=== PATIENT | female | born 1985 | race Hispanic/Latino ===

== ENCOUNTER 2017-07-09 12:48 | Emergency (ER) | payer OTHER ==
[2017-07-09 12:49] VITALS: BMI 31.1
[2017-07-09 13:03] VITALS: BP 124/82; PULSE 72; RESP 16; TEMP 98.1; O2SAT 98
--- NOTE | 2017-07-09 13:47 | C.PDOC ---
History Of Present Illness 32 y/o female presents to ED requesting repeat blood culture. Patient admits to having blood culture sent at another institution and told she had positive staph in blood. Patient reports she is on antibiotics already and feels better, currently denies fever, chills, nausea, vomiting or any other complaints at this time. Time Seen by Provider: 07/09/17 13:30 Chief Complaint (Nursing): Abnormal Labs History Per: Patient History/Exam Limitations: no limitations Onset/Duration Of Symptoms: Days Current Symptoms Are (Timing): Still Present Past Medical History Reviewed: Historical Data, Nursing Documentation, Vital Signs Vital Signs: Last Vital Signs Temp 98.1 F 07/09/17 13:00 Pulse 72 07/09/17 13:00 Resp 16 07/09/17 13:00 BP 124/82 07/09/17 13:00 Pulse Ox 98 07/09/17 15:49 - Medical History PMH: Anemia (iron transfusions, unknown cause), Arthritis (RA), Asthma, Fibromyalgia, Rheumatoid Arthritis Surgical History: No Surg Hx - [facility] Procedures NEBULIZER THERAPY (06/22/02) Family History: States: No Known Family Hx - Social History Hx Tobacco Use: No Hx Alcohol Use: No Hx Substance Use: No - Immunization History Hx Tetanus Toxoid Vaccination: No Hx Influenza Vaccination: No Hx Pneumococcal Vaccination: No Review Of Systems Except As Marked, All Systems Reviewed And Found Negative. Constitutional: Negative for: Fever, Chills Cardiovascular: Negative for: Chest Pain Gastrointestinal: Negative for: Nausea, Vomiting Physical Exam - Physical Exam Appears: Non-toxic, No Acute Distress Skin: Warm, Dry, No Rash Head: Atraumatic, Normacephalic Eye(s): bilateral: Normal Inspection Oral Mucosa: Moist Neck: Normal ROM, Supple Cardiovascular: Rhythm Regular Respiratory: Normal Breath Sounds, No Rales, No Rhonchi, No Wheezing Gastrointestinal/Abdominal: Soft, No Tenderness, No Guarding, No Rebound Extremity: Normal ROM, Capillary Refill (<2 seconds) Neurological/Psych: Oriented x3, Normal Speech, Normal Cognition ED Course And Treatment O2 Sat by Pulse Oximetry: 98 (RA) Pulse Ox Interpretation: Normal Against Medical Advice - AMA Patient Left Against Medical Advice: The patient declines admission to the hospital and wishes to leave the Emergency Department. This action is against my medical advice. This decision was made with informed refusal. The patient was told that admission to the hospital is necessary. Explanation of the reasons why were discussed. The risks of leaving were explained to the patient and include, but are not limited to, worsening of known or currently unknown conditions, permanent disability and from undiagnosed or untreated conditions. The patient has the capacity to make this informed decision and understands my explanation of the current medical problem and risks of leaving. The patient voluntarily accepts these risks and signed an AMA form documenting our conversation. The patient was given the opportunity to ask questions and reconsider. The patient was encouraged to return to the Emergency Department at any time for further care. Medical Decision Making Medical Decision Making: Patient advised to wait until I reach [facility] for possible bacteremia and to discuss positive culture. Patient does not wish to wait or stay in ED, Signed out AMA. i advised the culture could be contaminent vs true bacteremia. pt states she does not wish to wait in er to discuss with [place], does not wish to be admitted even if true bacteremia. signs ama Disposition - Disposition Disposition: AGAINST MEDICAL ADVICE Disposition Time: 02:00 Condition: UNKNOWN Additional Instructions: return to any er with worsening symptoms or concerns. Instructions: Sepsis in Adults, Leaving Against Medical Advice Forms: [facility] ([place]) - Clinical Impression Clinical Impression: Positive blood culture - Scribe Statement The provider has reviewed the documentation as recorded by the Radhaibsherwin Godinez All medical record entries made by the Radhaibsherwin were at my direction and personally dictated by me. I have reviewed the chart and agree that the record accurately reflects my personal performance of the history, physical exam, medical decision making, and the department course for this patient. I have also personally directed, reviewed, and agree with the discharge instructions and disposition.
== END 2017-07-09 13:44 | disposition left against medical advice (07) ==
LOC: C.ER 12:48
DX: R78.81 Bacteremia (principal)

== ENCOUNTER 2017-12-02 16:04 | Inpatient (IN) | payer OTHER ==
[2017-12-02 16:05] VITALS: BMI 31.1
[2017-12-02] MEDS ORDERED: Albuterol-Ipratrop 3 mg / 0.5 (3 ml) UD INH STA ×2 (16:38→18:55)
[2017-12-02] MEDS ORDERED: Albuterol-Ipratrop 3 mg / 0.5 (3 ml) UD ONE (16:44)
[2017-12-02] MEDS ORDERED: MethylPREDNISolone 40 mg Vial ONE (16:44)
[2017-12-02 16:45] LABS: MEAN PLATELET VOLUME 6.3 fL (7.2-11.7); RED CELL DISTRIBUTION WIDTH 31.1 % (11.5-14.5)
[2017-12-02 16:49] LABS: MEAN CORPUSCULAR HEMOGLOBIN 23.7 pg (27.0-31.0); MEAN CORPUSCULAR HGB CONC 30.4 g/dL (33.0-37.0); RBC 3.82 Mil/uL (3.80-5.20)
--- NOTE | 2017-12-02 16:49 | C.PDOC ---
History Of Present Illness 32 year old female with a history of subclavian DVT, anemia, fibromyalgia, rheumatoid arthritis and asthma presents to the ED c/o "all of my organs hurt". States total body pain, worse in her chest and back. (+) sob - "I always am w heezing". Pt was diagnosed with subclavian DVT last month and treated with eliquis. PT notes she is compliant with her prescribed medications. Admits to seeing a pain management doctor monthly who prescribes dilaudid BID. Denies fever, trauma, syncope, leg swelling, vomiting, and any other associated symptoms. Time Seen by Provider: 12/02/17 16:18 Chief Complaint (Nursing): Chest Pain History Per: Patient History/Exam Limitations: no limitations Onset/Duration Of Symptoms: Hrs Past Medical History Reviewed: Historical Data, Nursing Documentation, Vital Signs Vital Signs: Last Vital Signs Temp 99 F 12/02/17 16:10 Pulse 105 H 12/02/17 16:10 Resp 18 12/02/17 16:10 BP 145/89 12/02/17 16:10 Pulse Ox 93 L 12/02/17 16:10 - Medical History PMH: Anemia (iron transfusions, unknown cause), Arthritis (RA), Asthma, Fibromyalgia, Rheumatoid Arthritis Denies: HIV, Chronic Kidney Disease - [facility] Procedures NEBULIZER THERAPY (06/22/02) TRANSFUSE NONAUT RED BLOOD CELLS IN PERIPH VEIN, PERC (10/25/17) Family History: States: Unknown Family Hx - Social History Hx Tobacco Use: No Hx Alcohol Use: Yes (! bot of wine/week - denies) Hx Substance Use: No - Immunization History Hx Tetanus Toxoid Vaccination: No Hx Influenza Vaccination: No Hx Pneumococcal Vaccination: No Review Of Systems Except As Marked, All Systems Reviewed And Found Negative. (body pain.) Constitutional: Negative for: Fever Cardiovascular: Positive for: Chest Pain Respiratory: Negative for: Shortness of Breath Gastrointestinal: Positive for: Nausea. Negative for: Vomiting Physical Exam - Physical Exam Appears: Non-toxic, Other (crying, speaking in full sentences. ) Skin: Normal Color, Warm, Dry Head: Atraumatic, Normacephalic Eye(s): bilateral: Normal Inspection, EOMI Nose: Normal Oral Mucosa: Moist Throat: Normal, No Erythema, No Exudate, No Drooling Neck: Normal ROM, Supple Chest: Symmetrical, No Deformity Cardiovascular: Rhythm Regular Respiratory: No Accessory Muscle Use, No Rales, No Rhonchi, Wheezing Gastrointestinal/Abdominal: Normal Exam, Soft, No Tenderness Extremity: Normal ROM (x4) Neurological/Psych: Oriented x3, Normal Speech ED Course And Treatment - Laboratory Results Result Diagrams: 12/10/17 08:08 12/10/17 08:08 ECG: Interpreted By Me (Dr Walden), Viewed By Me ECG Rhythm: Sinus Rhythm Rate From EC O2 Sat by Pulse Oximetry: 93 (RA) Pulse Ox Interpretation: Abnormal - CT Scan/US CT Chest Other Rad Studies (CT/US): Read By Radiologist CT/US Interpretation: Findings: Visualized portions of the inferior thyroid gland appear unremarkable. The mediastinal and hilar vascular structures appear within normal limits. The heart appears within normal limits of size. No atherosclerotic calcification or mural plaque identified. No large central or segmental pulmonary embolus evident. Increasing nodular interstitial infiltrate involving bilateral mid to lower lung zones and to a lesser extent involvement of the upper lobes. No pleural effusion. No pneumothorax. Large hiatal hernia with evidence of gastroesophageal reflux. Limited visualized portions of the upper abdomen appear grossly unremarkable. No acute osseous abnormality is detected. Impression: No large central or segmental pulmonary embolus identified. Extensive nodular interstitial opacities, increased since prior examination. Appearance remains concerning for opportunistic infection. Sarcoid is also in the differential. Recommend clinical correlation and pulmonary consultation as indicated. Hiatal hernia and large gastroesophageal reflux. Question dysmotility/esophageal abnormality. Progress Note: Blood sent. CT Angio Chest. EKG. Urine HCG. Urinalysis. Given Al buterol/Ipratropium and Solu-Medrol. Nebulizer treatment given. On re- evaluation, minimally improvement of wheezing. Pt continues to have pain "everywhere". Anemia noted to be improved from previous labs as is the WBC. Case discussed with Dr Walden, who evaluated work up and agreed upon plan and admisison. Dr Orona called, no call back. Case discussed with Dr Moran, agreed upon plan and admission. Disposition - Disposition Disposition: HOSPITALIZED Disposition Time: 19:16 Condition: STABLE - Clinical Impression Clinical Impression: Chest pain, Asthma exacerbation, Fibromyalgia, Rheumatoid arthritis flare, Lung nodules - PA / METEOROLOGY PROFESSOR / Resident Statement MD/DO has reviewed & agrees with the documentation as recorded. - Scribe Statement The provider has reviewed the documentation as recorded by the Scribe (Suni Sultana) All medical record entries made by the Scribe were at my direction and personally dictated by me. I have reviewed the chart and agree that the record accurately reflects my personal performance of the history, physical exam, medical decision making, and the department course for this patient. I have also personally directed, reviewed, and agree with the discharge instructions and disposition.
[2017-12-02 16:52] LABS: HEMOGLOBIN 9.1 g/dL (11.0-16.0); WHITE BLOOD COUNT 11.5 K/uL (4.8-10.8)
[2017-12-02 16:53] LABS: PROTHROMBIN TIME 11.2 SECONDS (9.7-12.2)
[2017-12-02] MEDS ORDERED: Iodixanol 320 MG/ML 100 ML BOTTLE IV ONE (16:55)
[2017-12-02 16:58] LABS: ALB/GLOB RATIO 1.2 (1.0-2.1); ALBUMIN 3.3 g/dL (3.5-5.0); BLOOD UREA NITROGEN 6 mg/dL (7-17); GFR NON-AFRICAN AMERICAN > 60
[2017-12-02 16:59] LABS: ALT/SGPT 21 U/L (9-52); AST/SGOT 24 U/L (14-36)
[2017-12-02 17:06] LABS: EOS # 0.2 K/uL (0.0-0.7); LYMPH # 2.3 K/uL (1.0-4.3); MONO # 0.4 K/uL (0.0-0.8); NEUT # 8.6 K/uL (1.8-7.0)
--- NOTE | 2017-12-02 18:44 | CT ---
Date of service: 2017-12-02 17:58:17 CTA chest PE protocol Indication: SOB Technique: Contiguous axial images were obtained through the chest with intravenous contrast enhancement. Sagittal and coronal reconstructions were generated and reviewed. This CT exam was performed using 1 or more of the following dose reduction techniques: Automated exposure control, adjustment of the MAA and/or kV according to patient size, and/or use of iterative reconstruction technique. IV contrast: 100 mL Visipaque 320 Radiation dose (DLP): 614.35 MGy-cm. Comparison: CT chest without IV contrast performed 05/03/15 Findings: Visualized portions of the inferior thyroid gland appear unremarkable. The mediastinal and hilar vascular structures appear within normal limits. The heart appears within normal limits of size. No atherosclerotic calcification or mural plaque identified. No large central or segmental pulmonary embolus evident. Increasing nodular interstitial infiltrate involving bilateral mid to lower lung zones and to a lesser extent involvement of the upper lobes. No pleural effusion. No pneumothorax. Large hiatal hernia with evidence of gastroesophageal reflux. Limited visualized portions of the upper abdomen appear grossly unremarkable. No acute osseous abnormality is detected. Impression: No large central or segmental pulmonary embolus identified. Extensive nodular interstitial opacities, increased since prior examination. Appearance remains concerning for opportunistic infection. Sarcoid is also in the differential. Recommend clinical correlation and pulmonary consultation as indicated. Hiatal hernia and large gastroesophageal reflux. Question dysmotility/esophageal abnormality.
[2017-12-02 19:50] LABS: SQUAMOUS EPITHIAL 19 /hpf (0-5); URINE BILIRUBIN NEGATIVE (NEGATIVE); URINE BLOOD NEGATIVE (NEGATIVE); URINE CLARITY Hazy (Clear); URINE COLOR Yellow (YELLOW); URINE GLUCOSE (UA) NORMAL (Normal); URINE LEUKOCYTE ESTERASE 1+ Leu/uL (Negative); URINE PROTEIN NEGATIVE (NEGATIVE); URINE UROBILINOGEN NORMAL mg/dL (0.2-1.0)
[2017-12-02 19:51] LABS: HCG,QUALITATIVE URINE NEGATIVE (NEGATIVE)
[2017-12-02 20:04] LABS: BARBITURATES, UR NEGATIVE (NEGATIVE); BENZODIAZEPINES, UR NEGATIVE (NEGATIVE); PHENCYCLIDINE, UR NEGATIVE (NEGATIVE)
[2017-12-02 20:20] LABS: OPIATES, UR POSITIVE (NEGATIVE)
[2017-12-02] MEDS: Morphine 4 MG/ML VIAL IVP PRN (22:47)
[2017-12-02] MEDS: MethylPREDNISolone 40 mg Vial IV SCH (22:51)
[2017-12-02] MEDS: Moxifloxacin IV 400mg/250ml NS 400 MG/250 ML BAG IVPB SCH (23:33)
[2017-12-03] MEDS: DiphenhydrAMINE 50 mg/ml Inj IVP PRN ×3 (00:58→18:27)
[2017-12-03] MEDS: Albuterol-Ipratrop 3 mg / 0.5 (3 ml) UD INH SCH ×4 (01:15→19:58)
[2017-12-03] MEDS: Morphine 4 MG/ML VIAL IVP PRN (05:06)
[2017-12-03] MEDS: MethylPREDNISolone 40 mg Vial IV SCH ×3 (05:15→22:42)
[2017-12-03] MEDS: Pantoprazole 40 mg EC Tab PO SCH (09:50)
--- NOTE | 2017-12-03 09:55 | RAD ---
Date of service: 12/03/2017 HISTORY: interstitial lung opacities COMPARISON: 05/03/2015 chest x-ray CT angio 12/02/2017 TECHNIQUE: Chest PA and lateral FINDINGS: LUNGS: The previously referenced bilateral interstitial nodular fold trait of pattern is less pronounced on this chest x-ray than prior chest x-ray. No interval consolidation. PLEURA: Trace left pleural effusion costophrenic angle and/or chronic pleural thickening here-no change since 2016. No interval increasing pleural effusion or pneumothorax seen. CARDIOVASCULAR: No aortic atherosclerotic calcification present Normal heart size Lobulated soft tissue densities over central thoraco abdominal level compatible with large hiatal hernia-more conspicuous on this exam OSSEOUS STRUCTURES: No significant abnormalities. VISUALIZED UPPER ABDOMEN: Normal. OTHER FINDINGS: None. IMPRESSION: The prior suggested bilateral interstitial nodular infiltrative process albeit still present is less conspicuous on this exam than priors. No interval infiltrate. Chronic left costophrenic angle blunting-similar small left pleural effusion and/or chronic left pleural thickening here. Large hiatal hernia
[2017-12-03] MEDS ORDERED: Enoxaparin 40 mg Syringe SC SCH (10:00)
[2017-12-03] MEDS ORDERED: TIZANIDINE 4 MG PO SCH (10:00)
[2017-12-03] MEDS: Lactobacillus Acidophilus 500 MU Cap PO SCH ×3 (11:00→18:22)
[2017-12-03] MEDS ORDERED: HYDROmorphone 1 mg/ml ISec IVP PRN (11:03)
[2017-12-03 13:33] LABS: ANTI SREPTOLYSIN O NEGATIVE (NEGATIVE)
--- NOTE | 2017-12-03 14:56 | NM ---
Date of service: 12/03/2017 COMPARISON: 12/03/2017 single-view chest. 12/02/2017 CT pulmonary angiogram TECHNIQUE: 6.0 mCi technetium 99-m Xe-133 Gas. 3.5 mCI technetium 99-m MAA administered intravenously. FINDINGS: VENTILATION COMPONENT: Normal. PERFUSION COMPONENT: Solitary subsegmental peripheral defect superior segment right lower lobe IMPRESSION: Low probability ventilation perfusion scan for pulmonary embolism.
--- NOTE | 2017-12-03 16:15 | CP.PCM.CON ---
History of Present Illness - History of Present Illness History of Present Illness: Patient is a 32 year old female with a PMHx of Fibromyalgia, Subclavian DVT, Asthma, Rheumatoid Arthritis, Pneumonia who presented with intractable pain throughout her body which she described as "pain in my organs", primarily in the kidneys. Pain started around 7 am, patient took Dilaudid with no symptom improvement. Admits to wheezing and cough, but states cough is persistent for her. Denies SOB. Chest CT 12/02 - Increasing nodular interstitial infiltrate involving bilateral mid to lower lung zones and to a lesser extent involvement of the upper lobes. Appearance remains concerning for opportunistic infection. No pleural effusion. No pneumothorax. No large central or segmental pulmonary embolus evident. Chest Xray 12/03 - Trace left pleural effusion costophrenic angle and/or chronic pleural thickening here, no change since 2016. No interval increasing pleural effusion or pneumothorax seen. PMHx: Fibromyalgia, Subclavian DVT, Asthma, Rheumatoid Arthritis, Pneumonia Surgical Hx: Left shoulder surgery, Deviated septum, Shoulder arthroscopy Meds: Dilaudid, Singulair, Folic acid, Prednisone, Omeprazole, Ceflunonide, Albuterol, Sulfaslacin, Hydroxychloroquine, Gabapentin, Hydromorphone, Zyprexa, Eliquis, Tizanidine Allergies: Azithromycin, Rocephin, Vancomycin, Humira (all hives) Fam Hx: Mother - arthritis; Father - asthma, heart disease, lung disease, DM type II. Social Hx: Not currently working, states she is disabled. Lives with fiance in 3rd floor of "old apartment building". Has 1 dog. Admits to heavy alcohol use in the past, reduced to 3 drinks per week due to health problems. Denies tobacco and illicit drug use. Review of Systems - Review of Systems All systems: reviewed and no additional remarkable complaints except (SHORTNESS OF BREATH) Past Patient History - Infectious Disease Hx of Infectious Diseases: None - Past Medical History & Family History Past Medical History?: Yes - Past Social History Smoking Status: Never Smoked - CARDIAC Hx Cardiac Disorders: No - PULMONARY Hx Asthma: Yes - NEUROLOGICAL Hx Neurological Disorder: No - HEENT Hx HEENT Problems: No - RENAL Hx Chronic Kidney Disease: No - ENDOCRINE/METABOLIC Hx Endocrine Disorders: No - HEMATOLOGICAL/ONCOLOGICAL Hx Anemia: Yes (iron transfusions, unknown cause) Hx Human Immunodeficiency Virus (HIV): No - INTEGUMENTARY Hx Dermatological Problems: No - MUSCULOSKELETAL/RHEUMATOLOGICAL Hx Arthritis: Yes (RA) Hx Rheumatoid Arthritis: Yes - GASTROINTESTINAL Hx Gastrointestinal Disorders: No - GENITOURINARY/GYNECOLOGICAL Hx Genitourinary Disorders: No - PSYCHIATRIC Hx Substance Use: No - SURGICAL HISTORY Hx Surgeries: No Other/Comment: Deviated septum - ANESTHESIA Hx Anesthesia: Yes Hx Anesthesia Reactions: No Meds Allergies/Adverse Reactions: Allergies Allergy/AdvReac Type Severity Reaction Status Date / Time adalimumab [From Humira] Allergy Mild RASH Verified 11/11/17 10:53 azithromycin [From Zithromax] Allergy Mild RASH Verified 11/11/17 10:53 ceftriaxone [From Rocephin] Allergy Mild RASH Verified 11/11/17 10:53 vancomycin Allergy Mild RASH Verified 11/11/17 10:53 pablo Allergy Intermediate ITCHING Uncoded 11/11/17 10:53 rocephin Allergy Intermediate ITCHING Uncoded 11/11/17 10:53 - Medications Medications: Current Medications Albuterol/Ipratropium (Duoneb 3 Mg/0.5 Mg (3 Ml) Ud) 3 ml INH RQ6 [facility] Last Admin: 12/03/17 13:50 Dose: 3 ml Apixaban (Eliquis) 5 mg PO BID [facility] Last Admin: 12/03/17 11:00 Dose: 5 mg Diphenhydramine HCl (Benadryl) 25 mg IVP QID PRN PRN Reason: Itching / Pruritus Folic Acid (Folic Acid) 1 mg PO DAILY [facility] Last Admin: 12/03/17 09:49 Dose: 1 mg Gabapentin (Neurontin) 300 mg PO TID [facility] Last Admin: 12/03/17 14:27 Dose: 300 mg Home Med (Leflunomide [Leflunomide]) 20 mg PO DAILY [facility] Home Med (Mometasone/Formoterol [Dulera 200 Mcg/5 Mcg Inhaler]) 13 gm IH BID [facility] Home Med (Pnv No.95/Ferrous Fum/Folic Ac [ Formula Tablet]) 1 tab PO DAILY [facility] Home Med (Tizanidine [Zanaflex]) 4 mg PO BID [facility] Hydroxychloroquine Sulfate (Plaquenil) 200 mg PO BID [facility]; Protocol Last Admin: 12/03/17 09:49 Dose: 200 mg Moxifloxacin HCl (Avelox Iv 400mg/250ml Ns) 400 mg in 250 mls @ 167 mls/hr IVPB Q24H [facility]; Protocol Last Admin: 12/02/17 23:33 Dose: 167 mls/hr Lactobacillus Acidophilus (Bacid Acidophilus) 1 cap PO BID [facility] Last Admin: 12/03/17 11:09 Dose: 1 cap Methylprednisolone (Solu-Medrol) 40 mg IV Q12H [facility] Montelukast Sodium (Singulair) 10 mg PO DAILY [facility] Last Admin: 12/03/17 09:50 Dose: 10 mg Morphine Sulfate (Morphine) 4 mg IVP Q4 PRN PRN Reason: Pain, severe (8-10) Olanzapine (Zyprexa) 5 mg PO DAILY [facility] Last Admin: 12/03/17 09:50 Dose: 5 mg Pantoprazole Sodium (Protonix Ec Tab) 40 mg PO DAILY [facility] Last Admin: 12/03/17 09:50 Dose: 40 mg Sulfasalazine (Azulfidine) 1,500 mg PO BID [facility]; Protocol Last Admin: 12/03/17 09:49 Dose: 1,500 mg Physical Exam - Head Exam Head Exam: ATRAUMATIC, NORMOCEPHALIC - ENT Exam ENT Exam: Mucous Membranes Moist - Neck Exam Neck exam: Positive for: Normal Inspection - Respiratory Exam Respiratory Exam: Rhonchi, Wheezes - Cardiovascular Exam Cardiovascular Exam: REGULAR RHYTHM - GI/Abdominal Exam GI & Abdominal Exam: Normal Bowel Sounds, Soft - Extremities Exam Extremities exam: Positive for: normal inspection - Neurological Exam Neurological exam: Alert, Oriented x3 Results - Vital Signs Recent Vital Signs: Last Vital Signs Temp 98.7 F 12/03/17 07:00 Pulse 90 12/03/17 07:00 Resp 20 12/03/17 07:00 BP 115/76 12/03/17 07:00 Pulse Ox 95 12/03/17 13:00 - Labs Result Diagrams: 12/02/17 16:42 12/02/17 16:42 Labs: Laboratory Results - last 24 hr 12/02/17 12/02/17 12/02/17 16:42 16:42 16:42 WBC 11.5 H D RBC 3.82 Hgb 9.1 L D Hct 29.8 L MCV 78.0 L D MCH 23.7 L MCHC 30.4 L RDW 31.1 H Plt Count 563 H D MPV 6.3 L Neut % (Auto) 75.0 Lymph % (Auto) 20.0 [place] % (Auto) 3.0 Eos % (Auto) 2.0 Baso % (Auto) 0.0 Neut # (Auto) 8.6 H Lymph # (Auto) 2.3 [place] # (Auto) 0.4 Eos # (Auto) 0.2 Baso # (Auto) 0.0 ESR PT 11.2 INR 1.0 APTT 30 Sodium 138 Potassium 3.4 L Chloride 102 Carbon Dioxide 25 Anion Gap 14 BUN 6 L Creatinine 0.4 L Est GFR ( Amer) > 60 Est GFR (Non-Af Amer) > 60 Random Glucose 89 Calcium 8.0 L Total Bilirubin 0.4 AST 24 ALT 21 Alkaline Phosphatase 50 Total Protein 6.0 L Albumin 3.3 L Globulin 2.7 Albumin/Globulin Ratio 1.2 Beta HCG, Quant Urine Color Urine Clarity Urine pH Ur Specific [place] Urine Protein Urine Glucose (UA) Urine Ketones Urine Blood Urine Nitrate Urine Bilirubin Urine Urobilinogen Ur Leukocyte Esterase Urine WBC (Auto) Urine RBC (Auto) Ur Squamous Epith Cells Urine HCG, Qual Urine Opiates Screen Urine Methadone Screen Ur Barbiturates Screen Ur Phencyclidine Scrn Ur Amphetamines Screen U Benzodiazepines Scrn U Oth Cocaine Metabols U Cannabinoids Screen Anti-Staphylolysin O 12/02/17 12/02/17 12/02/17 17:03 19:33 19:33 WBC RBC Hgb Hct MCV MCH MCHC RDW Plt Count MPV Neut % (Auto) Lymph % (Auto) [place] % (Auto) Eos % (Auto) Baso % (Auto) Neut # (Auto) Lymph # (Auto) [place] # (Auto) Eos # (Auto) Baso # (Auto) ESR PT INR APTT Sodium Potassium Chloride Carbon Dioxide Anion Gap BUN Creatinine Est GFR ( Amer) Est GFR (Non-Af Amer) Random Glucose Calcium Total Bilirubin AST ALT Alkaline Phosphatase Total Protein Albumin Globulin Albumin/Globulin Ratio Beta HCG, Quant < 2.39 Urine Color Yellow Urine Clarity Hazy Urine pH 6.0 Ur Specific [place] 1.048 H Urine Protein Negative Urine Glucose (UA) Normal Urine Ketones Negative Urine Blood Negative Urine Nitrate Negative Urine Bilirubin Negative Urine Urobilinogen Normal Ur Leukocyte Esterase 1+ H Urine WBC (Auto) 6 H Urine RBC (Auto) 1 Ur Squamous Epith Cells 19 H Urine HCG, Qual Negative Urine Opiates Screen Positive H Urine Methadone Screen Negative Ur Barbiturates Screen Negative Ur Phencyclidine Scrn Negative Ur Amphetamines Screen Negative U Benzodiazepines Scrn Negative U Oth Cocaine Metabols Negative U Cannabinoids Screen Negative Anti-Staphylolysin O 12/03/17 12/03/17 12/03/17 11:08 11:08 11:08 WBC RBC Hgb Hct MCV MCH MCHC RDW Plt Count MPV Neut % (Auto) Lymph % (Auto) [place] % (Auto) Eos % (Auto) Baso % (Auto) Neut # (Auto) Lymph # (Auto) [place] # (Auto) Eos # (Auto) Baso # (Auto) ESR 32 H PT INR APTT Sodium Potassium Chloride Carbon Dioxide Anion Gap BUN Creatinine Est GFR ( Amer) Est GFR (Non-Af Amer) Random Glucose Calcium Total Bilirubin AST ALT 21 Alkaline Phosphatase Total Protein Albumin Globulin Albumin/Globulin Ratio Beta HCG, Quant Urine Color Urine Clarity Urine pH Ur Specific [place] Urine Protein Urine Glucose (UA) Urine Ketones Urine Blood Urine Nitrate Urine Bilirubin Urine Urobilinogen Ur Leukocyte Esterase Urine WBC (Auto) Urine RBC (Auto) Ur Squamous Epith Cells Urine HCG, Qual Urine Opiates Screen Urine Methadone Screen Ur Barbiturates Screen Ur Phencyclidine Scrn Ur Amphetamines Screen U Benzodiazepines Scrn U Oth Cocaine Metabols U Cannabinoids Screen Anti-Staphylolysin O Negative Assessment & Plan (1) Asthma exacerbation Status: Acute Comment: continue steroids, nebulizer treatment. Patient is on steroids for many years, rule out opportunistic infection. Serum LDH. Bactrim. IgE level. Pulmonary function test. Autoimmune workup (2) SOB (shortness of breath) Status: Acute (3) Arthritis, rheumatoid Status: Acute (4) DVT (deep venous thrombosis) Status: Acute (5) Anemia Status: Chronic
--- NOTE | 2017-12-03 17:33 | US ---
Date of service: 12/03/2017 PROCEDURE: Ultrasound of the Kidneys HISTORY: back pain COMPARISON: CT abdomen pelvis with contrast performed 06/16/14 TECHNIQUE: Sonogram of the kidneys. FINDINGS: RIGHT KIDNEY: Measures: 11.6 x 3.9 x 4.9 cm. No obstructing calculus, hydronephrosis, or renal cyst identified. LEFT KIDNEY: Measures: 11.2 x 5.0 x 5.3 cm. No obstructing calculus, hydronephrosis, or renal cyst identified. OTHER FINDINGS: None. IMPRESSION: Unremarkable renal sonogram.
[2017-12-03 18:04] LABS: ABG ALLEN TEST POS; ARTERIAL BLOOD GAS HCO3 30.3 mmol/L (21-28); ARTERIAL BLOOD GAS PCO2 38 mm/Hg (35-45); ARTERIAL BLOOD GAS PH 7.51 (7.35-7.45); ARTERIAL BLOOD GAS PO2 89 mm/Hg (80-100); ARTERIAL BLOOD GAS TCO2 31.5 mmol/L (22-28)
--- NOTE | 2017-12-03 19:17 | CP.PCM.HP ---
Past Patient History - Infectious Disease Hx of Infectious Diseases: None - Past Medical History & Family History Past Medical History?: Yes - Past Social History Smoking Status: Never Smoked - CARDIAC Hx Cardiac Disorders: No - PULMONARY Hx Asthma: Yes - NEUROLOGICAL Hx Neurological Disorder: No - HEENT Hx HEENT Problems: No - RENAL Hx Chronic Kidney Disease: No - ENDOCRINE/METABOLIC Hx Endocrine Disorders: No - HEMATOLOGICAL/ONCOLOGICAL Hx Anemia: Yes (iron transfusions, unknown cause) Hx Human Immunodeficiency Virus (HIV): No - INTEGUMENTARY Hx Dermatological Problems: No - MUSCULOSKELETAL/RHEUMATOLOGICAL Hx Arthritis: Yes (RA) Hx Rheumatoid Arthritis: Yes - GASTROINTESTINAL Hx Gastrointestinal Disorders: No - GENITOURINARY/GYNECOLOGICAL Hx Genitourinary Disorders: No - PSYCHIATRIC Hx Substance Use: No - SURGICAL HISTORY Hx Surgeries: No Other/Comment: Deviated septum - ANESTHESIA Hx Anesthesia: Yes Hx Anesthesia Reactions: No Meds Allergies/Adverse Reactions: Allergies Allergy/AdvReac Type Severity Reaction Status Date / Time adalimumab [From Humira] Allergy Mild RASH Verified 11/11/17 10:53 azithromycin [From Zithromax] Allergy Mild RASH Verified 11/11/17 10:53 ceftriaxone [From Rocephin] Allergy Mild RASH Verified 11/11/17 10:53 vancomycin Allergy Mild RASH Verified 11/11/17 10:53 pablo Allergy Intermediate ITCHING Uncoded 11/11/17 10:53 rocephin Allergy Intermediate ITCHING Uncoded 11/11/17 10:53 Results - Vital Signs Recent Vital Signs: Last Vital Signs Temp 98.1 F 12/03/17 16:00 Pulse 106 H 12/03/17 16:00 Resp 20 12/03/17 16:00 BP 124/81 12/03/17 16:00 Pulse Ox 92 L 12/03/17 16:00 - Labs Result Diagrams: 12/02/17 16:42 12/02/17 16:42 Labs: Laboratory Results - last 24 hr 12/02/17 12/02/17 12/03/17 19:33 19:33 11:08 ESR 32 H Puncture Site pCO2 pO2 HCO3 ABG pH ABG Total CO2 ABG Base Excess Britton Test A-a O2 Difference Respiratory Index FiO2 ALT Lactate Dehydrogenase Urine Color Yellow Urine Clarity Hazy Urine pH 6.0 Ur Specific [place] 1.048 H Urine Protein Negative Urine Glucose (UA) Normal Urine Ketones Negative Urine Blood Negative Urine Nitrate Negative Urine Bilirubin Negative Urine Urobilinogen Normal Ur Leukocyte Esterase 1+ H Urine WBC (Auto) 6 H Urine RBC (Auto) 1 Ur Squamous Epith Cells 19 H Urine HCG, Qual Negative Urine Opiates Screen Positive H Urine Methadone Screen Negative Ur Barbiturates Screen Negative Ur Phencyclidine Scrn Negative Ur Amphetamines Screen Negative U Benzodiazepines Scrn Negative U Oth Cocaine Metabols Negative U Cannabinoids Screen Negative Anti-Staphylolysin O 12/03/17 12/03/17 12/03/17 11:08 11:08 18:00 ESR Puncture Site pCO2 pO2 HCO3 ABG pH ABG Total CO2 ABG Base Excess Britton Test A-a O2 Difference Respiratory Index FiO2 ALT 21 Lactate Dehydrogenase 498 Urine Color Urine Clarity Urine pH Ur Specific [place] Urine Protein Urine Glucose (UA) Urine Ketones Urine Blood Urine Nitrate Urine Bilirubin Urine Urobilinogen Ur Leukocyte Esterase Urine WBC (Auto) Urine RBC (Auto) Ur Squamous Epith Cells Urine HCG, Qual Urine Opiates Screen Urine Methadone Screen Ur Barbiturates Screen Ur Phencyclidine Scrn Ur Amphetamines Screen U Benzodiazepines Scrn U Oth Cocaine Metabols U Cannabinoids Screen Anti-Staphylolysin O Negative 12/03/17 18:00 ESR Puncture Site Rra pCO2 38 pO2 89 HCO3 30.3 H ABG pH 7.51 H ABG Total CO2 31.5 H ABG Base Excess 6.9 H Britton Test Pos A-a O2 Difference 63.0 Respiratory Index 0.7 FiO2 28.0 ALT Lactate Dehydrogenase Urine Color Urine Clarity Urine pH Ur Specific [place] Urine Protein Urine Glucose (UA) Urine Ketones Urine Blood Urine Nitrate Urine Bilirubin Urine Urobilinogen Ur Leukocyte Esterase Urine WBC (Auto) Urine RBC (Auto) Ur Squamous Epith Cells Urine HCG, Qual Urine Opiates Screen Urine Methadone Screen Ur Barbiturates Screen Ur Phencyclidine Scrn Ur Amphetamines Screen U Benzodiazepines Scrn U Oth Cocaine Metabols U Cannabinoids Screen Anti-Staphylolysin O
[2017-12-03] MEDS: Moxifloxacin IV 400mg/250ml NS 400 MG/250 ML BAG IVPB SCH (22:30)
[2017-12-04] MEDS: DiphenhydrAMINE 50 mg/ml Inj IVP PRN ×5 (00:28→21:01)
[2017-12-04] MEDS: Albuterol-Ipratrop 3 mg / 0.5 (3 ml) UD INH SCH ×4 (01:30→20:04)
[2017-12-04] MEDS: Potassium Chloride 20 mEq ER Tab PO SCH (08:36)
[2017-12-04 08:57] LABS: BASO % 0.1 % (0.0-2.0); EOS % 0.1 % (0.0-4.0); HEMOGLOBIN 8.3 g/dL (11.0-16.0); LYMPH # 0.3 K/uL (1.0-4.3); MEAN CELL VOLUME 77.9 fL (81.0-99.0); MEAN CORPUSCULAR HEMOGLOBIN 24.5 pg (27.0-31.0); MEAN CORPUSCULAR HGB CONC 31.5 g/dL (33.0-37.0); MEAN PLATELET VOLUME 6.5 fL (7.2-11.7); MONO # 3.1 K/uL (0.0-0.8); MONO % 21.1 % (0.0-10.0); NEUT # 11.1 K/uL (1.8-7.0); NEUT % 76.7 % (50.0-75.0); NRBC % 0.1 % (0.0-2.0); PLATELET COUNT 489 K/uL (130-400); RBC 3.38 Mil/uL (3.80-5.20); RED CELL DISTRIBUTION WIDTH 31.5 % (11.5-14.5); WHITE BLOOD COUNT 14.5 K/uL (4.8-10.8)
[2017-12-04 09:07] LABS: BLOOD UREA NITROGEN 10 mg/dL (7-17); CALCIUM 8.6 mg/dl (8.6-10.4); GFR NON-AFRICAN AMERICAN > 60
[2017-12-04 09:43] LABS: ANISOCYTOSIS SLIGHT; BANDS 4 % (0-2); HYPOCHROMIC SLIGHT; LYMPHOCYTE 4 % (20-40); MONOCYTE 8 % (0-10); NEUTROPHIL 83 % (50-75); NUCLEATED RED BLOOD CELL 1 % (0-0); PLATELET ESTIMATE SLIGHTLY INCREASED (NORMAL); POIKILOCYTOSIS SLIGHT; REACTIVE LYMPHOCYTES 1 % (0-0); TARGET CELLS SLIGHT; TOTAL CELLS COUNTED 100
--- NOTE | 2017-12-04 09:43 | CP.PCM.PN ---
Subjective - Date & Time of Evaluation Date of Evaluation: 12/04/17 Time of Evaluation: 15:58 - Subjective Subjective: Patient seen and examined at bedside. No overnight events reported. She denies any fevers, chills, SOB, Headache, chest pain, n/v/d, constipation or urinary symptoms. Still complains of generalized internal pain, especially on her back. She also complains of pruritis. Objective - Vital Signs/Intake and Output Vital Signs (last 24 hours): Temp Pulse Resp BP Pulse Ox 98.4 F 80 20 114/73 95 12/04/17 07:53 12/04/17 07:53 12/04/17 07:53 12/04/17 07:53 12/04/17 07:53 Intake and Output: 12/04/17 12/04/17 06:59 18:59 Intake Total 500 300 Balance 500 300 - Medications Medications: Current Medications Albuterol/Ipratropium (Duoneb 3 Mg/0.5 Mg (3 Ml) Ud) 3 ml INH RQ6 [facility] Last Admin: 12/04/17 08:13 Dose: 3 ml Apixaban (Eliquis) 5 mg PO BID [facility] Last Admin: 12/03/17 18:22 Dose: 5 mg Diphenhydramine HCl (Benadryl) 25 mg IVP QID PRN PRN Reason: Itching / Pruritus Last Admin: 12/04/17 06:32 Dose: 25 mg Folic Acid (Folic Acid) 1 mg PO DAILY [facility] Last Admin: 12/03/17 09:49 Dose: 1 mg Gabapentin (Neurontin) 300 mg PO TID [facility] Last Admin: 12/03/17 18:22 Dose: 300 mg Home Med (Leflunomide [Leflunomide]) 20 mg PO DAILY [facility] Home Med (Mometasone/Formoterol [Dulera 200 Mcg/5 Mcg Inhaler]) 13 gm IH BID [facility] Home Med (Tizanidine [Zanaflex]) 4 mg PO BID [facility] Hydroxychloroquine Sulfate (Plaquenil) 200 mg PO BID [facility]; Protocol Last Admin: 12/03/17 18:22 Dose: 200 mg Moxifloxacin HCl (Avelox Iv 400mg/250ml Ns) 400 mg in 250 mls @ 167 mls/hr IVPB Q24H [facility]; Protocol Last Admin: 12/03/17 22:30 Dose: 167 mls/hr Lactobacillus Acidophilus (Bacid Acidophilus) 1 cap PO BID [facility] Last Admin: 12/03/17 18:22 Dose: 1 cap Methylprednisolone (Solu-Medrol) 40 mg IV Q12H [facility] Last Admin: 12/03/17 22:42 Dose: 40 mg Montelukast Sodium (Singulair) 10 mg PO DAILY [facility] Last Admin: 12/03/17 09:50 Dose: 10 mg Morphine Sulfate (Morphine) 4 mg IVP Q4 PRN PRN Reason: Pain, severe (8-10) Last Admin: 12/04/17 08:36 Dose: 4 mg Olanzapine (Zyprexa) 5 mg PO DAILY [facility] Last Admin: 12/03/17 09:50 Dose: 5 mg Pantoprazole Sodium (Protonix Ec Tab) 40 mg PO DAILY [facility] Last Admin: 12/03/17 09:50 Dose: 40 mg Potassium Chloride (K-Dur 20 Meq Er Tab) 40 meq PO DAILY@0800 [facility] Last Admin: 12/04/17 08:36 Dose: 40 meq Multivit/Folic Acid/Iron () 1 tab PO DAILY [facility] Sulfasalazine (Azulfidine) 1,500 mg PO BID [facility]; Protocol Last Admin: 12/03/17 18:21 Dose: 1,500 mg - Labs Labs: 12/04/17 08:43 12/04/17 08:43 PT 11.2 SECONDS (9.7-12.2) 12/02/17 16:42 INR 1.0 12/02/17 16:42 APTT 30 SECONDS (21-34) 12/02/17 16:42 - Constitutional Appears: Well, Non-toxic, No Acute Distress - Head Exam Head Exam: ATRAUMATIC, NORMAL INSPECTION, NORMOCEPHALIC - Neck Exam Neck Exam: Normal Inspection - Respiratory Exam Respiratory Exam: Decreased Breath Sounds (b/L lung bases. ), Wheezes (b/l), NORMAL BREATHING PATTERN. absent: Accessory Muscle Use, Stridor - Cardiovascular Exam Cardiovascular Exam: RRR, +S1, +S2 - GI/Abdominal Exam GI & Abdominal Exam: Soft, Normal Bowel Sounds. absent: Tenderness - Back Exam Back Exam: CVA tenderness (L), CVA tenderness (R), tenderness (b/l paraspinal tenderness from T10-L4 more prominent on left side. ) - Neurological Exam Neurological Exam: Alert, Oriented x3 - Psychiatric Exam Psychiatric exam: Normal Affect, Normal Mood - Skin Skin Exam: Dry, Intact, Normal Color, Warm Assessment and Plan - Assessment and Plan (Free Text) Assessment: 32 year old female with a PMHx of Fibromyalgia, Subclavian DVT, Asthma, Rheumatoid Arthritis, Pneumonia admitted for evaluation and treatment of intractable pain and abnormal lung imaging. Chest CT on admission showed " Increasing nodular interstitial infiltrate involving bilateral mid to lower lung zones and to a lesser extent involvement of the upper lobes. Appearance remains concerning for opportunistic infection. No pleural effusion. No pneumothorax. No large central or segmental pulmonary embolus evident." CXR on admission showed "Trace left pleural effusion costophrenic angle and/or chronic pleural thickening here, no change since 2016. No interval increasing pleural effusion or pneumothorax seen. " Plan: Interstitial Lung Disease Viral vs Autoimmune etiology Pulmonology Consulted (Dr. Veliz) Rheumatology Consul (Dr. Nichols) Chest CT 12/02 - Increasing nodular interstitial infiltrate involving bilateral mid to lower lung zones and to a lesser extent involvement of the upper lobes. Appearance remains concerning for opportunistic infection. No pleural effusion. No pneumothorax. No large central or segmental pulmonary embolus evident. Chest Xray 12/03 - Trace left pleural effusion costophrenic angle and/or chronic pleural thickening here, no change since 2016. No interval increasing pleural effusion or pneumothorax seen. Autoimmune Workup - PENDING Serum IGE - PENDING Meds: Moxifloxacin 400mg IV Daily Rheumatoid Arthritis/Intractable Pain Rheumatology Consult (Dr. Nichols) Meds: Hydrocychloroquine 200mg BID Leflunomide 20mg PO Daily SulfaSalazine 1500mg BP BID Morphine 4 Q4 PRN tizanidine 4mg PO BID Gabapentin 300mg PO TID Asthma ABG (12/04/17): 7,51/38/89/30.3 Meds: Montelukast 10mg PO Daily DuoNebs RQ6H PRN Solumedrol 40mg IV Q12H Iron Def. Anemia. HgB 8.3 from 9.1 yesterday Anemia Workup Ordered Type and Cross Match, Transfuse for HgB < 7 Meds: Ferrlecit 125mg IVP FADI Epoetin Alonzo 40,000 Unit IV MWF Hx of Subclavian DVT Meds: Eliquis 5 PO BID Pruritus Meds: PRN Benadryl Proph Protonix Folate, Multivitamins Lactobacillus Acidophilus Lovenox K-dur 20 meq Daily Patient discussed with Dr. Lilli Cruz, PGY-2
[2017-12-04 09:44] LABS: POLYCHROMIC SLIGHT
[2017-12-04] MEDS: Prenatal Multivit/Folic Acid/Iron Tab PO SCH (09:46)
[2017-12-04] MEDS: Pantoprazole 40 mg EC Tab PO SCH (09:46)
[2017-12-04] MEDS: Lactobacillus Acidophilus 500 MU Cap PO SCH ×2 (09:46→17:59)
[2017-12-04] MEDS: MethylPREDNISolone 40 mg Vial IV SCH ×2 (09:47→22:47)
[2017-12-04] MEDS ORDERED: Ferric Sodium Gluconat Complex 62.5 mg/5 ml Vial IVPB SCH (14:15)
--- NOTE | 2017-12-04 16:34 | CP.PCM.PN ---
Subjective - Date & Time of Evaluation Date of Evaluation: 12/04/17 Time of Evaluation: 15:00 - Subjective Subjective: Patient was seen and examined at bedside, resting comfortably. Afebrile and in no acute distress. Reports feeling more SOB, wearing NC since yesterday. Persistent cough with new green/brown sputum. Admits to chest tightness and chest pain with cough. Objective - Vital Signs/Intake and Output Vital Signs (last 24 hours): Temp Pulse Resp BP Pulse Ox 98.8 F 114 H 20 116/75 95 12/04/17 16:00 12/04/17 16:00 12/04/17 16:00 12/04/17 16:00 12/04/17 16:00 Intake and Output: 12/04/17 12/04/17 06:59 18:59 Intake Total 500 780 Balance 500 780 - Medications Medications: Current Medications Albuterol/Ipratropium (Duoneb 3 Mg/0.5 Mg (3 Ml) Ud) 3 ml INH RQ6 [facility] Last Admin: 12/04/17 13:47 Dose: 3 ml Apixaban (Eliquis) 5 mg PO BID [facility] Last Admin: 12/04/17 09:47 Dose: 5 mg Diphenhydramine HCl (Benadryl) 25 mg IVP Q4H PRN PRN Reason: Itching / Pruritus Epoetin Alonzo (Procrit) 40,000 unit IV MWF [facility] Ferric Sodium Gluconate Complex (Ferrlecit) 125 mg IVPB DAILY [facility] Stop: 12/12/17 14:16 Folic Acid (Folic Acid) 1 mg PO DAILY [facility] Last Admin: 12/04/17 09:46 Dose: 1 mg Gabapentin (Neurontin) 300 mg PO TID [facility] Last Admin: 12/04/17 14:00 Dose: 300 mg Home Med (Leflunomide [Leflunomide]) 20 mg PO DAILY [facility] Home Med (Mometasone/Formoterol [Dulera 200 Mcg/5 Mcg Inhaler]) 13 gm IH BID [facility] Home Med (Tizanidine [Zanaflex]) 4 mg PO BID [facility] Hydroxychloroquine Sulfate (Plaquenil) 200 mg PO BID [facility]; Protocol Last Admin: 12/04/17 09:46 Dose: 200 mg Moxifloxacin HCl (Avelox Iv 400mg/250ml Ns) 400 mg in 250 mls @ 167 mls/hr IVPB Q24H [facility]; Protocol Last Admin: 12/03/17 22:30 Dose: 167 mls/hr Lactobacillus Acidophilus (Bacid Acidophilus) 1 cap PO BID [facility] Last Admin: 12/04/17 09:46 Dose: 1 cap Methylprednisolone (Solu-Medrol) 40 mg IV Q12H [facility] Last Admin: 12/04/17 09:47 Dose: 40 mg Montelukast Sodium (Singulair) 10 mg PO DAILY [facility] Last Admin: 12/04/17 09:47 Dose: 10 mg Morphine Sulfate (Morphine) 4 mg IVP Q4 PRN PRN Reason: Pain, severe (8-10) Last Admin: 12/04/17 12:30 Dose: 4 mg Olanzapine (Zyprexa) 5 mg PO DAILY [facility] Last Admin: 12/04/17 09:47 Dose: 5 mg Pantoprazole Sodium (Protonix Ec Tab) 40 mg PO DAILY [facility] Last Admin: 12/04/17 09:46 Dose: 40 mg Potassium Chloride (K-Dur 20 Meq Er Tab) 40 meq PO DAILY@0800 [facility] Last Admin: 12/04/17 08:36 Dose: 40 meq Multivit/Folic Acid/Iron () 1 tab PO DAILY [facility] Last Admin: 12/04/17 09:46 Dose: 1 tab Sulfasalazine (Azulfidine) 1,500 mg PO BID [facility]; Protocol Last Admin: 12/04/17 09:45 Dose: 1,500 mg - Labs Labs: 12/04/17 08:43 12/04/17 08:43 PT 11.2 SECONDS (9.7-12.2) 12/02/17 16:42 INR 1.0 12/02/17 16:42 APTT 30 SECONDS (21-34) 12/02/17 16:42 - Head Exam Head Exam: ATRAUMATIC, NORMOCEPHALIC - ENT Exam ENT Exam: Mucous Membranes Moist - Neck Exam Neck Exam: Normal Inspection - Respiratory Exam Respiratory Exam: Clear to Ausculation Bilateral - Cardiovascular Exam Cardiovascular Exam: REGULAR RHYTHM - GI/Abdominal Exam GI & Abdominal Exam: Soft, Normal Bowel Sounds Assessment and Plan (1) Asthma exacerbation Assessment & Plan: Taper steroids Follow-up IgE and eosinophil pulmonary function test sleep study as outpatient Nebulizer treatment Singulair unlikelyPCP Bactrim for PCP prophylaxis as patient is on steroids Status: Acute (2) Arthritis, rheumatoid Status: Acute (3) DVT (deep venous thrombosis) Status: Acute (4) Anemia Status: Chronic
[2017-12-04 17:11] LABS: IRON 14 ug/dL (37-170)
[2017-12-04 17:21] LABS: % IRON SATURATION 5 (20-55); TOTAL IRON BINDING CAPACITY 277 ug/dL (250-450)
[2017-12-04 17:48] LABS: FERRITIN 42.8 ng/mL
--- NOTE | 2017-12-04 18:08 | CP.PCM.PN ---
Subjective - Date & Time of Evaluation Date of Evaluation: 12/04/17 Time of Evaluation: 08:45 - Subjective Subjective: clinically same Objective - Vital Signs/Intake and Output Vital Signs (last 24 hours): Temp Pulse Resp BP Pulse Ox 98.8 F 114 H 20 116/75 95 12/04/17 16:00 12/04/17 16:00 12/04/17 16:00 12/04/17 16:00 12/04/17 16:00 Intake and Output: 12/04/17 12/04/17 06:59 18:59 Intake Total 500 780 Balance 500 780 - Medications Medications: Current Medications Albuterol/Ipratropium (Duoneb 3 Mg/0.5 Mg (3 Ml) Ud) 3 ml INH RQ6 [facility] Last Admin: 12/04/17 13:47 Dose: 3 ml Apixaban (Eliquis) 5 mg PO BID [facility] Last Admin: 12/04/17 17:59 Dose: 5 mg Diphenhydramine HCl (Benadryl) 25 mg IVP Q4H PRN PRN Reason: Itching / Pruritus Last Admin: 12/04/17 16:54 Dose: 25 mg Enoxaparin Sodium (Lovenox) 40 mg SC DAILY [facility] Epoetin Alonzo (Procrit) 40,000 unit IV MWF [facility] Folic Acid (Folic Acid) 1 mg PO DAILY [facility] Last Admin: 12/04/17 09:46 Dose: 1 mg Gabapentin (Neurontin) 300 mg PO TID [facility] Last Admin: 12/04/17 17:59 Dose: 300 mg Home Med (Leflunomide [Leflunomide]) 20 mg PO DAILY [facility] Home Med (Mometasone/Formoterol [Dulera 200 Mcg/5 Mcg Inhaler]) 13 gm IH BID [facility] Home Med (Tizanidine [Zanaflex]) 4 mg PO BID [facility] Hydroxychloroquine Sulfate (Plaquenil) 200 mg PO BID [facility]; Protocol Last Admin: 12/04/17 18:00 Dose: 200 mg Moxifloxacin HCl (Avelox Iv 400mg/250ml Ns) 400 mg in 250 mls @ 167 mls/hr IVPB Q24H [facility]; Protocol Last Admin: 12/03/17 22:30 Dose: 167 mls/hr Ferric Sodium Gluconate Complex 125 mg/ Sodium Chloride 110 mls @ 105 mls/hr IVPB Q24H [facility] Stop: 12/12/17 18:31 Lactobacillus Acidophilus (Bacid Acidophilus) 1 cap PO BID [facility] Last Admin: 12/04/17 17:59 Dose: 1 cap Methylprednisolone (Solu-Medrol) 40 mg IV Q12H [facility] Last Admin: 12/04/17 09:47 Dose: 40 mg Montelukast Sodium (Singulair) 10 mg PO DAILY [facility] Last Admin: 12/04/17 09:47 Dose: 10 mg Morphine Sulfate (Morphine) 4 mg IVP Q4 PRN PRN Reason: Pain, severe (8-10) Last Admin: 12/04/17 16:50 Dose: 4 mg Olanzapine (Zyprexa) 5 mg PO DAILY [facility] Last Admin: 12/04/17 09:47 Dose: 5 mg Pantoprazole Sodium (Protonix Ec Tab) 40 mg PO DAILY [facility] Last Admin: 12/04/17 09:46 Dose: 40 mg Potassium Chloride (K-Dur 20 Meq Er Tab) 40 meq PO DAILY@0800 [facility] Last Admin: 12/04/17 08:36 Dose: 40 meq Multivit/Folic Acid/Iron () 1 tab PO DAILY [facility] Last Admin: 12/04/17 09:46 Dose: 1 tab Sulfasalazine (Azulfidine) 1,500 mg PO BID [facility]; Protocol Last Admin: 12/04/17 09:45 Dose: 1,500 mg - Labs Labs: 12/04/17 08:43 12/04/17 08:43 PT 11.2 SECONDS (9.7-12.2) 12/02/17 16:42 INR 1.0 12/02/17 16:42 APTT 30 SECONDS (21-34) 12/02/17 16:42 - Constitutional Appears: Well - Head Exam Head Exam: ATRAUMATIC, NORMAL INSPECTION, NORMOCEPHALIC - Eye Exam Eye Exam: EOMI, Normal appearance, PERRL Pupil Exam: NORMAL ACCOMODATION, PERRL - ENT Exam ENT Exam: Mucous Membranes Moist, Normal Exam - Neck Exam Neck Exam: Full ROM, Normal Inspection. absent: Lymphadenopathy - Respiratory Exam Respiratory Exam: Decreased Breath Sounds - Cardiovascular Exam Cardiovascular Exam: REGULAR RHYTHM, +S1, +S2 - GI/Abdominal Exam GI & Abdominal Exam: Soft, Diminished Bowel Sounds - Rectal Exam Rectal Exam: Deferred
[2017-12-04 18:19] LABS: FOLATE > 20.0 ng/mL
[2017-12-04] MEDS: Ferric Sodium Gluconat Complex 125 MG in Sodium Chloride 0.9% 100 ML IVPB SCH (18:36)
[2017-12-04] MEDS: LEFLUNOMIDE 20 MG PO SCH (19:33)
[2017-12-04] MEDS: EPOETIN ALFA 10,000 UNIT/ML ML SC SCH (20:22)
[2017-12-04] MEDS: Moxifloxacin IV 400mg/250ml NS 400 MG/250 ML BAG IVPB SCH (22:47)
[2017-12-05] MEDS: Morphine 4 MG/ML VIAL IVP PRN ×6 (01:05→21:33)
[2017-12-05] MEDS: DiphenhydrAMINE 50 mg/ml Inj IVP PRN ×6 (01:07→21:37)
[2017-12-05] MEDS: Albuterol-Ipratrop 3 mg / 0.5 (3 ml) UD INH SCH ×5 (01:16→19:36)
[2017-12-05] MEDS: Potassium Chloride 20 mEq ER Tab PO SCH (08:04)
[2017-12-05] MEDS: LEFLUNOMIDE 20 MG PO SCH (09:35)
[2017-12-05] MEDS: Prenatal Multivit/Folic Acid/Iron Tab PO SCH (09:36)
[2017-12-05] MEDS: Lactobacillus Acidophilus 500 MU Cap PO SCH ×2 (09:36→17:40)
[2017-12-05] MEDS: MethylPREDNISolone 40 mg Vial IV SCH ×2 (09:38→22:31)
[2017-12-05] MEDS: Pantoprazole 40 mg EC Tab PO SCH (09:38)
[2017-12-05] MEDS ORDERED: Enoxaparin 40 mg Syringe SC SCH (10:00)
[2017-12-05 13:28] LABS: RNP <1.0 AI (<1.0)
--- NOTE | 2017-12-05 13:29 | CP.PCM.PN ---
Subjective - Date & Time of Evaluation Date of Evaluation: 12/05/17 Time of Evaluation: 13:25 - Subjective Subjective: Progress note. Attending: Dr. Moran Pt seen and examined at bedside. No acute distress. No events overnight. Pt experiencing some chest pain and shortness of breath. Pulm and rheum workup in progress. Objective - Vital Signs/Intake and Output Vital Signs (last 24 hours): Temp Pulse Resp BP Pulse Ox 98.2 F 75 20 118/76 95 12/05/17 07:32 12/05/17 07:32 12/05/17 07:32 12/05/17 07:32 12/05/17 13:08 Intake and Output: 12/05/17 12/05/17 06:59 18:59 Intake Total 1160 Balance 1160 - Medications Medications: Current Medications Albuterol/Ipratropium (Duoneb 3 Mg/0.5 Mg (3 Ml) Ud) 3 ml INH RQ6 [facility] Last Admin: 12/05/17 07:50 Dose: Not Given Apixaban (Eliquis) 5 mg PO BID [facility] Last Admin: 12/05/17 09:38 Dose: 5 mg Diphenhydramine HCl (Benadryl) 25 mg IVP Q4H PRN PRN Reason: Itching / Pruritus Last Admin: 12/05/17 13:19 Dose: 25 mg Enoxaparin Sodium (Lovenox) 40 mg SC DAILY [facility] Last Admin: 12/05/17 09:35 Dose: 40 mg Epoetin Alonzo (Procrit) 10,000 unit SC MWF [facility] Last Admin: 12/04/17 20:22 Dose: 10,000 unit Fluticasone/Vilanterol (Breo Ellipta 100-25 Mcg Inh) 1 puff INH RQ24 [facility] Folic Acid (Folic Acid) 1 mg PO DAILY [facility] Last Admin: 12/05/17 09:38 Dose: 1 mg Gabapentin (Neurontin) 300 mg PO TID [facility] Last Admin: 12/05/17 13:16 Dose: 300 mg Home Med (Patient's Own Medication) 1 tab PO DAILY [facility] Last Admin: 12/05/17 09:35 Dose: 1 tab Hydroxychloroquine Sulfate (Plaquenil) 200 mg PO BID [facility]; Protocol Last Admin: 12/05/17 09:36 Dose: 200 mg Moxifloxacin HCl (Avelox Iv 400mg/250ml Ns) 400 mg in 250 mls @ 167 mls/hr IVPB Q24H [facility]; Protocol Last Admin: 12/04/17 22:47 Dose: 167 mls/hr Ferric Sodium Gluconate Complex 125 mg/ Sodium Chloride 110 mls @ 105 mls/hr IVPB Q24H [facility] Stop: 12/12/17 18:31 Last Admin: 12/04/17 18:36 Dose: 105 mls/hr Lactobacillus Acidophilus (Bacid Acidophilus) 1 cap PO BID [facility] Last Admin: 12/05/17 09:36 Dose: 1 cap Methylprednisolone (Solu-Medrol) 40 mg IV Q12H [facility] Last Admin: 12/05/17 09:38 Dose: 40 mg Montelukast Sodium (Singulair) 10 mg PO DAILY [facility] Last Admin: 12/05/17 09:38 Dose: 10 mg Morphine Sulfate (Morphine) 4 mg IVP Q4 PRN PRN Reason: Pain, severe (8-10) Last Admin: 12/05/17 13:20 Dose: 4 mg Olanzapine (Zyprexa) 5 mg PO DAILY [facility] Last Admin: 12/05/17 09:36 Dose: 5 mg Pantoprazole Sodium (Protonix Ec Tab) 40 mg PO DAILY [facility] Last Admin: 12/05/17 09:38 Dose: 40 mg Potassium Chloride (K-Dur 20 Meq Er Tab) 40 meq PO DAILY@0800 [facility] Last Admin: 12/05/17 08:04 Dose: 40 meq Multivit/Folic Acid/Iron () 1 tab PO DAILY [facility] Last Admin: 12/05/17 09:36 Dose: 1 tab Sulfasalazine (Azulfidine) 1,500 mg PO BID [facility]; Protocol Last Admin: 12/05/17 09:36 Dose: 1,500 mg - Labs Labs: 12/04/17 08:43 12/04/17 08:43 PT 11.2 SECONDS (9.7-12.2) 12/02/17 16:42 INR 1.0 12/02/17 16:42 APTT 30 SECONDS (21-34) 12/02/17 16:42 - Constitutional Appears: Non-toxic, No Acute Distress - Head Exam Head Exam: ATRAUMATIC, NORMAL INSPECTION, NORMOCEPHALIC - Eye Exam Eye Exam: EOMI - ENT Exam ENT Exam: Mucous Membranes Moist - Neck Exam Neck Exam: Full ROM, Normal Inspection - Respiratory Exam Respiratory Exam: Wheezes. absent: Respiratory Distress - Cardiovascular Exam Cardiovascular Exam: +S1, +S2 - Extremities Exam Extremities Exam: Full ROM, Normal Inspection - Neurological Exam Neurological Exam: Alert, Awake, Oriented x3 - Psychiatric Exam Psychiatric exam: Normal Affect, Normal Mood - Skin Skin Exam: Dry, Intact, Normal Color, Warm Assessment and Plan - Assessment and Plan (Free Text) Assessment: This is a 32 yo female with past medical hx of fibromyalgia, subclavian DVT, asthma, rheumatoid arthritis, pneumonia with 1. Interstitial Lung Disease/shortness of breath Viral vs Autoimmune etiology Pulmonology Consulted (Dr. Veliz) Rheumatology Consult. recs appreciated. (Dr. Nichols) Chest CT 12/02 - Increasing nodular interstitial infiltrate involving bilateral mid to lower lung zones and to a lesser extent involvement of the upper lobes. Appearance remains concerning for opportunistic infection. No pleural effusion. No pneumothorax. No large central or segmental pulmonary embolus evident. Chest Xray 12/03 - Trace left pleural effusion costophrenic angle and/or chronic pleural thickening here, no change since 2016. No interval increasing pleural effusion or pneumothorax seen. Autoimmune Workup - PENDING Serum IGE - PENDING -V/Q scan shows low probability for PE Rheumatoid Arthritis/Intractable Pain Double stranded DNA- negative [employer] negative Rheumatology Consult (Dr. Nichols) Hydrocychloroquine 200mg BID Leflunomide 20mg PO Daily Sulfasalazine 1500mg BP BID Morphine 4 Q4 PRN tizanidine 4mg PO BID Gabapentin 300mg PO TID Hx of Asthma ABG (12/04/17): 7,51/38/89/30.3 Montelukast 10mg PO Daily DuoNebs RQ6H PRN Solumedrol 40mg IV Q12H Iron Deficiency Anemia Ferrlecit 125mg IVP FADI Epoetin Alonzo 40,000 Unit IV MWF Hx of Subclavian DVT eliquis Pruritis -on benadryl prn GI/DVT ppx eliquis 5 po bid
--- NOTE | 2017-12-05 16:01 | CP.PCM.PN ---
Subjective - Date & Time of Evaluation Date of Evaluation: 12/05/17 Time of Evaluation: 09:45 - Subjective Subjective: clinically same Objective - Vital Signs/Intake and Output Vital Signs (last 24 hours): Temp Pulse Resp BP Pulse Ox 98.2 F 75 20 118/76 95 12/05/17 07:32 12/05/17 13:20 12/05/17 07:32 12/05/17 07:32 12/05/17 13:08 Intake and Output: 12/05/17 12/05/17 06:59 18:59 Intake Total 1160 200 Balance 1160 200 - Medications Medications: Current Medications Albuterol/Ipratropium (Duoneb 3 Mg/0.5 Mg (3 Ml) Ud) 3 ml INH RQ6 [facility] Last Admin: 12/05/17 13:15 Dose: 3 ml Apixaban (Eliquis) 5 mg PO BID [facility] Last Admin: 12/05/17 09:38 Dose: 5 mg Diphenhydramine HCl (Benadryl) 25 mg IVP Q4H PRN PRN Reason: Itching / Pruritus Last Admin: 12/05/17 13:19 Dose: 25 mg Epoetin Alonzo (Procrit) 10,000 unit SC MWF [facility] Last Admin: 12/04/17 20:22 Dose: 10,000 unit Fluticasone/Vilanterol (Breo Ellipta 100-25 Mcg Inh) 1 puff INH RQ24 [facility] Folic Acid (Folic Acid) 1 mg PO DAILY [facility] Last Admin: 12/05/17 09:38 Dose: 1 mg Gabapentin (Neurontin) 300 mg PO TID [facility] Last Admin: 12/05/17 13:16 Dose: 300 mg Home Med (Patient's Own Medication) 1 tab PO DAILY [facility] Last Admin: 12/05/17 09:35 Dose: 1 tab Hydroxychloroquine Sulfate (Plaquenil) 200 mg PO BID [facility]; Protocol Last Admin: 12/05/17 09:36 Dose: 200 mg Moxifloxacin HCl (Avelox Iv 400mg/250ml Ns) 400 mg in 250 mls @ 167 mls/hr IVPB Q24H [facility]; Protocol Last Admin: 12/04/17 22:47 Dose: 167 mls/hr Ferric Sodium Gluconate Complex 125 mg/ Sodium Chloride 110 mls @ 105 mls/hr IVPB Q24H [facility] Stop: 11/01/18 18:31 Last Admin: 12/04/17 18:36 Dose: 105 mls/hr Lactobacillus Acidophilus (Bacid Acidophilus) 1 cap PO BID [facility] Last Admin: 12/05/17 09:36 Dose: 1 cap Methylprednisolone (Solu-Medrol) 40 mg IV Q12H [facility] Last Admin: 12/05/17 09:38 Dose: 40 mg Montelukast Sodium (Singulair) 10 mg PO DAILY [facility] Last Admin: 12/05/17 09:38 Dose: 10 mg Morphine Sulfate (Morphine) 4 mg IVP Q4 PRN PRN Reason: Pain, severe (8-10) Last Admin: 12/05/17 13:20 Dose: 4 mg Olanzapine (Zyprexa) 5 mg PO DAILY [facility] Last Admin: 12/05/17 09:36 Dose: 5 mg Pantoprazole Sodium (Protonix Ec Tab) 40 mg PO DAILY [facility] Last Admin: 12/05/17 09:38 Dose: 40 mg Potassium Chloride (K-Dur 20 Meq Er Tab) 40 meq PO DAILY@0800 [facility] Last Admin: 12/05/17 08:04 Dose: 40 meq Multivit/Folic Acid/Iron () 1 tab PO DAILY [facility] Last Admin: 12/05/17 09:36 Dose: 1 tab Sulfasalazine (Azulfidine) 1,500 mg PO BID [facility]; Protocol Last Admin: 12/05/17 09:36 Dose: 1,500 mg - Labs Labs: 12/04/17 08:43 12/04/17 08:43 PT 11.2 SECONDS (9.7-12.2) 12/02/17 16:42 INR 1.0 12/02/17 16:42 APTT 30 SECONDS (21-34) 12/02/17 16:42 - Constitutional Appears: Well - Head Exam Head Exam: ATRAUMATIC, NORMAL INSPECTION, NORMOCEPHALIC - Eye Exam Eye Exam: EOMI, Normal appearance, PERRL Pupil Exam: NORMAL ACCOMODATION, PERRL - ENT Exam ENT Exam: Mucous Membranes Moist, Normal Exam - Neck Exam Neck Exam: Full ROM, Normal Inspection. absent: Lymphadenopathy - Respiratory Exam Respiratory Exam: Decreased Breath Sounds - Cardiovascular Exam Cardiovascular Exam: REGULAR RHYTHM, +S1, +S2 - GI/Abdominal Exam GI & Abdominal Exam: Soft, Diminished Bowel Sounds - Rectal Exam Rectal Exam: Deferred
--- NOTE | 2017-12-05 17:25 | CP.PCM.PN ---
Subjective - Date & Time of Evaluation Date of Evaluation: 12/05/17 Time of Evaluation: 10:25 - Subjective Subjective: Patient was seen and examined at bedside, resting comfortably. Afebrile and in no acute distress. Reports she has chest congestion and chest tightness. Admits to SOB and cough with yellow-green sputum. Denies chest pain. Serology - SHANTELL pending Objective - Vital Signs/Intake and Output Vital Signs (last 24 hours): Temp Pulse Resp BP Pulse Ox 97.9 F 118 H 20 120/68 94 L 12/05/17 16:00 12/05/17 16:00 12/05/17 16:00 12/05/17 16:00 12/05/17 16:00 Intake and Output: 12/05/17 12/05/17 06:59 18:59 Intake Total 1160 200 Balance 1160 200 - Medications Medications: Current Medications Albuterol/Ipratropium (Duoneb 3 Mg/0.5 Mg (3 Ml) Ud) [address] [facility] Last Admin: 12/05/17 13:15 Dose: 3 ml Apixaban (Eliquis) [address] [facility] Last Admin: 12/05/17 09:38 Dose: 5 mg Diphenhydramine HCl (Benadryl) 25 mg IVP Q4H PRN PRN Reason: Itching / Pruritus Last Admin: 12/05/17 13:19 Dose: 25 mg Epoetin Alonzo (Procrit) 10,[address] [facility] Last Admin: 12/04/17 20:22 Dose: 10,000 unit Fluticasone/Vilanterol (Breo Ellipta 100-25 Mcg Inh) [address] [facility] Folic Acid (Folic Acid) [address] [facility] Last Admin: 12/05/17 09:38 Dose: 1 mg Gabapentin (Neurontin) [address] [facility] Last Admin: 12/05/17 13:16 Dose: 300 mg Home Med (Patient's Own Medication) [address] [facility] Last Admin: 12/05/17 09:35 Dose: 1 tab Hydroxychloroquine Sulfate (Plaquenil) [address] [facility]; Protocol Last Admin: 12/05/17 09:36 Dose: 200 mg Moxifloxacin HCl (Avelox Iv 400mg/250ml Ns) 400 mg in 250 mls @ 167 mls/hr IVPB Q24H [facility]; Protocol Last Admin: 12/04/17 22:47 Dose: 167 mls/hr Ferric Sodium Gluconate Complex 125 mg/ Sodium Chloride 110 mls @ 105 mls/hr IVPB Q24H [facility] Stop: 12/12/17 18:31 Last Admin: 12/04/17 18:36 Dose: 105 mls/hr Lactobacillus Acidophilus (Bacid Acidophilus) [address] [facility] Last Admin: 12/05/17 09:36 Dose: 1 cap Methylprednisolone (Solu-Medrol) [address] [facility] Last Admin: 12/05/17 09:38 Dose: 40 mg Montelukast Sodium (Singulair) [address] [facility] Last Admin: 12/05/17 09:38 Dose: 10 mg Morphine Sulfate (Morphine) 4 mg IVP Q4 PRN PRN Reason: Pain, severe (8-10) Last Admin: 12/05/17 13:20 Dose: 4 mg Olanzapine (Zyprexa) [address] [facility] Last Admin: 12/05/17 09:36 Dose: 5 mg Pantoprazole Sodium (Protonix Ec Tab) [address] [facility] Last Admin: 12/05/17 09:38 Dose: 40 mg Potassium Chloride (K-Dur 20 Meq Er Tab) 40 meq PO DAILY@0800 [facility] Last Admin: 12/05/17 08:04 Dose: 40 meq Multivit/Folic Acid/Iron () [address] [facility] Last Admin: 12/05/17 09:36 Dose: 1 tab Sulfasalazine (Azulfidine) 1,[address] [facility]; Protocol Last Admin: 12/05/17 09:36 Dose: 1,500 mg - Labs Labs: 12/04/17 08:43 12/04/17 08:43 PT 11.2 SECONDS (9.7-12.2) 12/02/17 16:42 INR 1.0 12/02/17 16:42 APTT 30 SECONDS (21-34) 12/02/17 16:42 Assessment and Plan (1) Asthma exacerbation Status: Acute (2) Arthritis, rheumatoid Status: Acute (3) DVT (deep venous thrombosis) Status: Acute (4) Anemia Status: Chronic
[2017-12-05] MEDS: Ferric Sodium Gluconat Complex 125 MG in Sodium Chloride 0.9% 100 ML IVPB SCH (18:25)
--- NOTE | 2017-12-05 19:41 | CP.PCM.CON ---
History of Present Illness - History of Present Illness History of Present Illness: 32 year old female presented with intractable pain throughout her body which she described as "pain in my organs", primarily in the kidneys. PMHx: Fibromyalgia, Subclavian DVT, Asthma, Rheumatoid Arthritis, Pneumonia Surgical Hx: Left shoulder surgery, Deviated septum, Shoulder arthroscopy Meds: Dilaudid, Singulair, Folic acid, Prednisone, Omeprazole, Ceflunonide, Albuterol, Sulfaslacin, Hydroxychloroquine, Gabapentin, Hydromorphone, Zyprexa, Eliquis, Tizanidine Allergies: Azithromycin, Rocephin, Vancomycin, Humira (all hives) Fam Hx: Mother - arthritis; Father - asthma, heart disease, lung disease, DM typ e II. Social Hx: Not currently working, states she is disabled. Lives with fiance in 3rd floor of "old apartment building". Has 1 dog. Admits to heavy alcohol use in the past, reduced to 3 drinks per week due to health problems. Denies tobacco and illicit drug use. Review of Systems - Review of Systems All systems: reviewed and no additional remarkable complaints except - Constitutional Constitutional: As Per HPI - EENT Eyes: absent: As Per HPI, Blind Spots, Blurred Vision, Change in Vision, Decreased Night Vision, Diplopia, Discharge, Dry Eye, Exophthalmos, Floaters, Irritation, Itchy Eyes, Loss of Peripheral Vision, Pain, Photophobia, Requires Corrective Lenses, Sees Flashes, Spots in Vision, Tunnel Vision, Other Visual Disturbances, Loss of Vision, Other Ears: absent: As Per HPI, Decreased Hearing, Ear Discharge, Ear Pain, Tinnitus, Abnormal Hearing, Disequilibrium, Dizziness, Other Nose/Mouth/Throat: absent: As Per HPI, Epistaxis, Nasal Congestion, Nasal Discharge, Nasal Obstruction, Nasal Trauma, Nose Pain, Post Nasal Drip, Sinus Pain, Sinus Pressure, Bleeding Gums, Change in Voice, Dental Pain, Dry Mouth, Dysphagia, Halitosis, Hoarsness, Lip Swelling, Mouth Lesions, Mouth Pain, Odynophagia, Sore Throat, Throat Swelling, Tongue Swelling, Facial Pain, Neck Pain, Neck Mass, Other - Breasts Breasts: absent: As Per HPI, Change in Shape, Mass, Pain, Nipple Discharge, Nipple Inversion, Skin Changes, Swelling, Other - Cardiovascular Cardiovascular: absent: As Per HPI, Acrocyanosis, Chest Pain, Chest Pain at Rest, Chest Pain with Activity, Claudication, Diaphoresis, Dyspnea, Dyspnea on Exertion, Edema, Irregular Heart Rhythm, Pain Radiating to Arm/Neck/Jaw, Leg Edema, Leg Ulcers, Lightheadedness, Orthopnea, Palpitations, Paroxysmal Nocturnal Dyspnea, Pedal Edema, Radiating Pain, Rapid Heart Rate, Slow Heart Rate, Syncope, Other - Respiratory Respiratory: As Per HPI, Cough Past Patient History - Infectious Disease Hx of Infectious Diseases: None - Past Medical History & Family History Past Medical History?: Yes - Past Social History Smoking Status: Never Smoked - CARDIAC Hx Cardiac Disorders: No - PULMONARY Hx Asthma: Yes - NEUROLOGICAL Hx Neurological Disorder: No - HEENT Hx HEENT Problems: No - RENAL Hx Chronic Kidney Disease: No - ENDOCRINE/METABOLIC Hx Endocrine Disorders: No - HEMATOLOGICAL/ONCOLOGICAL Hx Anemia: Yes (iron transfusions, unknown cause) Hx Human Immunodeficiency Virus (HIV): No - INTEGUMENTARY Hx Dermatological Problems: No - MUSCULOSKELETAL/RHEUMATOLOGICAL Hx Falls: No - GASTROINTESTINAL Hx Gastrointestinal Disorders: No - GENITOURINARY/GYNECOLOGICAL Hx Genitourinary Disorders: No - PSYCHIATRIC Hx Substance Use: No - SURGICAL HISTORY Hx Surgeries: No Other/Comment: Deviated septum - ANESTHESIA Hx Anesthesia: Yes Hx Anesthesia Reactions: No Meds Allergies/Adverse Reactions: Allergies Allergy/AdvReac Type Severity Reaction Status Date / Time adalimumab [From Humira] Allergy Mild RASH Verified 11/11/17 10:53 azithromycin [From Zithromax] Allergy Mild RASH Verified 11/11/17 10:53 ceftriaxone [From Rocephin] Allergy Mild RASH Verified 11/11/17 10:53 vancomycin Allergy Mild RASH Verified 11/11/17 10:53 pablo Allergy Intermediate ITCHING Uncoded 11/11/17 10:53 rocephin Allergy Intermediate ITCHING Uncoded 11/11/17 10:53 - Medications Medications: Current Medications Albuterol/Ipratropium (Duoneb 3 Mg/0.5 Mg (3 Ml) Ud) 3 ml INH RQ6 [facility] Last Admin: 12/05/17 19:36 Dose: 3 ml Apixaban (Eliquis) 5 mg PO BID [facility] Last Admin: 12/05/17 17:40 Dose: 5 mg Diphenhydramine HCl (Benadryl) 25 mg IVP Q4H PRN PRN Reason: Itching / Pruritus Last Admin: 12/05/17 17:36 Dose: 25 mg Epoetin Alonzo (Procrit) 10,000 unit SC MWF [facility] Last Admin: 12/04/17 20:22 Dose: 10,000 unit Fluticasone/Vilanterol (Breo Ellipta 100-25 Mcg Inh) 1 puff INH RQ24 [facility] Folic Acid (Folic Acid) 1 mg PO DAILY [facility] Last Admin: 12/05/17 09:38 Dose: 1 mg Gabapentin (Neurontin) 300 mg PO TID [facility] Last Admin: 12/05/17 17:40 Dose: 300 mg Home Med (Patient's Own Medication) 1 tab PO DAILY [facility] Last Admin: 12/05/17 09:35 Dose: 1 tab Hydroxychloroquine Sulfate (Plaquenil) 200 mg PO BID [facility]; Protocol Last Admin: 12/05/17 17:40 Dose: 200 mg Moxifloxacin HCl (Avelox Iv 400mg/250ml Ns) 400 mg in 250 mls @ 167 mls/hr IVPB Q24H [facility]; Protocol Last Admin: 12/04/17 22:47 Dose: 167 mls/hr Ferric Sodium Gluconate Complex 125 mg/ Sodium Chloride 110 mls @ 105 mls/hr IVPB Q24H [facility] Stop: 12/12/17 18:31 Last Admin: 12/05/17 18:25 Dose: 105 mls/hr Lactobacillus Acidophilus (Bacid Acidophilus) 1 cap PO BID [facility] Last Admin: 12/05/17 17:40 Dose: 1 cap Methylprednisolone (Solu-Medrol) 40 mg IV Q12H [facility] Last Admin: 12/05/17 09:38 Dose: 40 mg Montelukast Sodium (Singulair) 10 mg PO DAILY [facility] Last Admin: 12/05/17 09:38 Dose: 10 mg Morphine Sulfate (Morphine) 4 mg IVP Q4 PRN PRN Reason: Pain, severe (8-10) Last Admin: 12/05/17 17:32 Dose: 4 mg Olanzapine (Zyprexa) 5 mg PO DAILY [facility] Last Admin: 12/05/17 09:36 Dose: 5 mg Pantoprazole Sodium (Protonix Ec Tab) 40 mg PO DAILY [facility] Last Admin: 12/05/17 09:38 Dose: 40 mg Potassium Chloride (K-Dur 20 Meq Er Tab) 40 meq PO DAILY@0800 [facility] Last Admin: 12/05/17 08:04 Dose: 40 meq Multivit/Folic Acid/Iron () 1 tab PO DAILY [facility] Last Admin: 12/05/17 09:36 Dose: 1 tab Sulfasalazine (Azulfidine) 1,500 mg PO BID [facility]; Protocol Last Admin: 12/05/17 17:40 Dose: 1,500 mg Physical Exam - Constitutional Appears: Chronically Ill - Head Exam Head Exam: ATRAUMATIC, NORMOCEPHALIC - Eye Exam Eye Exam: PERRL - ENT Exam ENT Exam: Mucous Membranes Dry - Neck Exam Neck exam: Negative for: Lymphadenopathy - Respiratory Exam Respiratory Exam: Decreased Breath Sounds, Prolonged Expiratory Phase, Rales, Rhonchi, Wheezes - Cardiovascular Exam Cardiovascular Exam: REGULAR RHYTHM - GI/Abdominal Exam GI & Abdominal Exam: Diminished Bowel Sounds, Soft. absent: Tenderness - Rectal Exam Rectal Exam: Deferred - Exam Exam: NORMAL INSPECTION - Extremities Exam Extremities exam: Negative for: pedal edema - Back Exam Back exam: absent: CVA tenderness (L), CVA tenderness (R) - Neurological Exam Neurological exam: Alert, CN II-XII Intact, Oriented x3, Reflexes Normal - Psychiatric Exam Psychiatric exam: Depressed - Skin Skin Exam: Dry, Intact Results - Vital Signs Recent Vital Signs: Last Vital Signs Temp 97.9 F 12/05/17 16:00 Pulse 118 H 12/05/17 16:00 Resp 20 12/05/17 16:00 BP 120/68 12/05/17 16:00 Pulse Ox 94 L 12/05/17 16:00 - Labs Result Diagrams: 12/04/17 08:43 12/04/17 08:43 Labs: Laboratory Results - last 24 hr 12/03/17 12/04/17 18:00 08:43 IgE 102 ANATOMY PROFESSOR Antibody <1.0 ANATOMY PROFESSOR Antibody Interp Negative Assessment & Plan (1) Chest pain Status: Acute (2) SOB (shortness of breath) Status: Acute (3) Arthritis, rheumatoid Status: Acute (4) Asthma Status: Acute - Assessment and Plan (Free Text) Assessment: Chest CT 12/02 - Increasing nodular interstitial infiltrate involving bilateral mid to lower lung zones and to a lesser extent involvement of the upper lobes. Appearance remains concerning for opportunistic infection. No pleural effusion. No pneumothorax. No large central or segmental pulmonary embolus evident. Chest Xray 12/03 - Trace left pleural effusion costophrenic angle and/or chronic pleural thickening here, no change since 2016. No interval increasing pleural effusion or pneumothorax seen. Plan: consider bronchoscopy r/o MAC r/o aspergillosis r/o PCP prognosis guarded
--- NOTE | 2017-12-05 20:26 | CP.PCM.CON ---
History of Present Illness - History of Present Illness History of Present Illness: 32 year old female with a history of rheumatoid arthritis, recent unprovoked left subclavian vein DVT dx 10/2017, iron deficiency anemia, admitted with diffuse body pain and concern for oportunistic infection. She notes to waking up with "severe organ pain" which prompted her to come to the hospital. She has pulmonary infiltrates concerning for infection. Past medical history: Rheumatoid arthritis, DVT, iron deficiency anemia. Past surgical history: Denies Family history: Denies hematologic and oncologic problems Social history: Denies tobacco, alcohol, and illicit drug use. Allergies: Azithromycin, vancomycin, pablo, rocephin Review of systems: All remaining review of systems including HEENT, cardiovascular, respiratory, gastrointestinal, genitourinary, musculoskeletal, dermatologic, neurologic, and psychiatric are negative unless mentioned in the HPI. Past Patient History - Infectious Disease Hx of Infectious Diseases: None - Past Medical History & Family History Past Medical History?: Yes - Past Social History Smoking Status: Never Smoked - CARDIAC Hx Cardiac Disorders: No - PULMONARY Hx Asthma: Yes - NEUROLOGICAL Hx Neurological Disorder: No - HEENT Hx HEENT Problems: No - RENAL Hx Chronic Kidney Disease: No - ENDOCRINE/METABOLIC Hx Endocrine Disorders: No - HEMATOLOGICAL/ONCOLOGICAL Hx Anemia: Yes (iron transfusions, unknown cause) Hx Human Immunodeficiency Virus (HIV): No - INTEGUMENTARY Hx Dermatological Problems: No - MUSCULOSKELETAL/RHEUMATOLOGICAL Hx Falls: No - GASTROINTESTINAL Hx Gastrointestinal Disorders: No - GENITOURINARY/GYNECOLOGICAL Hx Genitourinary Disorders: No - PSYCHIATRIC Hx Substance Use: No - SURGICAL HISTORY Hx Surgeries: No Other/Comment: Deviated septum - ANESTHESIA Hx Anesthesia: Yes Hx Anesthesia Reactions: No Meds Allergies/Adverse Reactions: Allergies Allergy/AdvReac Type Severity Reaction Status Date / Time adalimumab [From Humira] Allergy Mild RASH Verified 11/11/17 10:53 azithromycin [From Zithromax] Allergy Mild RASH Verified 11/11/17 10:53 ceftriaxone [From Rocephin] Allergy Mild RASH Verified 11/11/17 10:53 vancomycin Allergy Mild RASH Verified 11/11/17 10:53 pablo Allergy Intermediate ITCHING Uncoded 11/11/17 10:53 rocephin Allergy Intermediate ITCHING Uncoded 11/11/17 10:53 - Medications Medications: Current Medications Albuterol/Ipratropium (Duoneb 3 Mg/0.5 Mg (3 Ml) Ud) 3 ml INH RQ6 [facility] Last Admin: 12/05/17 19:36 Dose: 3 ml Apixaban (Eliquis) 5 mg PO BID [facility] Last Admin: 12/05/17 17:40 Dose: 5 mg Diphenhydramine HCl (Benadryl) 25 mg IVP Q4H PRN PRN Reason: Itching / Pruritus Last Admin: 12/05/17 17:36 Dose: 25 mg Epoetin Alonzo (Procrit) 10,000 unit SC MWF [facility] Last Admin: 12/04/17 20:22 Dose: 10,000 unit Fluticasone/Vilanterol (Breo Ellipta 100-25 Mcg Inh) 1 puff INH RQ24 [facility] Folic Acid (Folic Acid) 1 mg PO DAILY [facility] Last Admin: 12/05/17 09:38 Dose: 1 mg Gabapentin (Neurontin) 300 mg PO TID [facility] Last Admin: 12/05/17 17:40 Dose: 300 mg Home Med (Patient's Own Medication) 1 tab PO DAILY [facility] Last Admin: 12/05/17 09:35 Dose: 1 tab Hydroxychloroquine Sulfate (Plaquenil) 200 mg PO BID [facility]; Protocol Last Admin: 12/05/17 17:40 Dose: 200 mg Moxifloxacin HCl (Avelox Iv 400mg/250ml Ns) 400 mg in 250 mls @ 167 mls/hr IVPB Q24H [facility]; Protocol Last Admin: 12/04/17 22:47 Dose: 167 mls/hr Ferric Sodium Gluconate Complex 125 mg/ Sodium Chloride 110 mls @ 105 mls/hr IVPB Q24H [facility] Stop: 12/12/17 18:31 Last Admin: 12/05/17 18:25 Dose: 105 mls/hr Lactobacillus Acidophilus (Bacid Acidophilus) 1 cap PO BID [facility] Last Admin: 12/05/17 17:40 Dose: 1 cap Methylprednisolone (Solu-Medrol) 40 mg IV Q12H [facility] Last Admin: 12/05/17 09:38 Dose: 40 mg Montelukast Sodium (Singulair) 10 mg PO DAILY [facility] Last Admin: 12/05/17 09:38 Dose: 10 mg Morphine Sulfate (Morphine) 4 mg IVP Q4 PRN PRN Reason: Pain, severe (8-10) Last Admin: 12/05/17 17:32 Dose: 4 mg Olanzapine (Zyprexa) 5 mg PO DAILY [facility] Last Admin: 12/05/17 09:36 Dose: 5 mg Pantoprazole Sodium (Protonix Ec Tab) 40 mg PO DAILY [facility] Last Admin: 12/05/17 09:38 Dose: 40 mg Potassium Chloride (K-Dur 20 Meq Er Tab) 40 meq PO DAILY@0800 [facility] Last Admin: 12/05/17 08:04 Dose: 40 meq Multivit/Folic Acid/Iron () 1 tab PO DAILY [facility] Last Admin: 12/05/17 09:36 Dose: 1 tab Sulfasalazine (Azulfidine) 1,500 mg PO BID [facility]; Protocol Last Admin: 12/05/17 17:40 Dose: 1,500 mg Physical Exam - Head Exam Head Exam: ATRAUMATIC - Eye Exam Eye Exam: Normal appearance - ENT Exam ENT Exam: Mucous Membranes Dry - Respiratory Exam Respiratory Exam: NORMAL BREATHING PATTERN - Cardiovascular Exam Cardiovascular Exam: +S1, +S2 - GI/Abdominal Exam GI & Abdominal Exam: Normal Bowel Sounds - Extremities Exam Extremities exam: Positive for: normal inspection - Neurological Exam Neurological exam: Oriented x3 - Psychiatric Exam Psychiatric exam: Normal Affect, Normal Mood - Skin Skin Exam: Warm Results - Vital Signs Recent Vital Signs: Last Vital Signs Temp 97.9 F 12/05/17 16:00 Pulse 118 H 12/05/17 16:00 Resp 20 12/05/17 16:00 BP 120/68 12/05/17 16:00 Pulse Ox 94 L 12/05/17 16:00 - Labs Result Diagrams: 12/04/17 08:43 12/04/17 08:43 Labs: Laboratory Results - last 24 hr 12/03/17 12/04/17 18:00 08:43 IgE 102 ICT DEVELOPMENT MANAGER Antibody <1.0 ICT DEVELOPMENT MANAGER Antibody Interp Negative Assessment & Plan (1) Anemia Assessment and Plan: iron deficiency anemia, started on Ferrlecit Status: Chronic (2) Leukocytosis Assessment and Plan: on antibiotics Status: Acute (3) DVT (deep venous thrombosis) Assessment and Plan: unprovoked on therapeutic anticoagulation. 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 Status: Acute
[2017-12-05] MEDS: Moxifloxacin IV 400mg/250ml NS 400 MG/250 ML BAG IVPB SCH (22:36)
[2017-12-06 01:19] LABS: B2 GLYCOPROTEIN I AB(IGA) <9 SAU (<=20); B2 GLYCOPROTEIN I AB(IGG) <9 SGU (<=20); B2 GLYCOPROTEIN I AB(IGM) <9 SMU (<=20)
[2017-12-06] MEDS: DiphenhydrAMINE 50 mg/ml Inj IVP PRN ×6 (01:29→21:29)
[2017-12-06] MEDS: Morphine 4 MG/ML VIAL IVP PRN ×3 (01:29→09:25)
[2017-12-06] MEDS: Albuterol-Ipratrop 3 mg / 0.5 (3 ml) UD INH SCH ×4 (01:54→20:59)
[2017-12-06 05:26] LABS: PHOSPHATIDYLSERINE AB IGA <20 U/mL (<20); PHOSPHATIDYLSERINE AB IGG <10 U/mL (<10); PHOSPHATIDYLSERINE AB IGM <25 U/mL (<25)
[2017-12-06 06:07] LABS: CARDIOLIPIN AB (IGA) <11 APL (<=11); CARDIOLIPIN AB (IGG) <14 GPL (<=14); CARDIOLIPIN AB (IGM) <12 MPL (<=12)
[2017-12-06 07:40] LABS: HEMOGLOBIN 8.2 g/dL (11.0-16.0); MEAN CELL VOLUME 77.9 fL (81.0-99.0); MEAN CORPUSCULAR HEMOGLOBIN 24.8 pg (27.0-31.0); MEAN CORPUSCULAR HGB CONC 31.8 g/dL (33.0-37.0); MEAN PLATELET VOLUME 6.5 fL (7.2-11.7); PLATELET COUNT 453 K/uL (130-400); RBC 3.31 Mil/uL (3.80-5.20); RED CELL DISTRIBUTION WIDTH 31.3 % (11.5-14.5); WHITE BLOOD COUNT 12.9 K/uL (4.8-10.8)
[2017-12-06] MEDS: Potassium Chloride 20 mEq ER Tab PO SCH (07:45)
[2017-12-06] MEDS ORDERED: Fluticasone-Vilanterol 100/25mcg Diskus INH SCH (08:00)
[2017-12-06 08:32] LABS: ALB/GLOB RATIO 1.2 (1.0-2.1); ALBUMIN 3.4 g/dL (3.5-5.0); ALT/SGPT 20 U/L (9-52); AST/SGOT 23 U/L (14-36); BLOOD UREA NITROGEN 8 mg/dL (7-17); CALCIUM 8.9 mg/dl (8.6-10.4); GFR NON-AFRICAN AMERICAN > 60
[2017-12-06 08:39] LABS: IMMUNOGLOBULIN A 217.9 mg/dL (70.0-400.0); IMMUNOGLOBULIN G 482.4 mg/dL (700.0-1600.0); IMMUNOGLOBULIN M 62.8 mg/dL (40.0-230.0)
[2017-12-06 09:01] LABS: LYMPH # 0.8 K/uL (1.0-4.3); MONO # 0.8 K/uL (0.0-0.8)
[2017-12-06 09:04] LABS: LYMPHOCYTE 5 % (20-40); MONOCYTE 5 % (0-10); NEUTROPHIL 90 % (50-75); NUCLEATED RED BLOOD CELL 4 % (0-0); PLATELET ESTIMATE INCREASED (NORMAL); TOTAL CELLS COUNTED 100
[2017-12-06 09:05] LABS: ANISOCYTOSIS SLIGHT; HYPOCHROMIC SLIGHT; POIKILOCYTOSIS SLIGHT; POLYCHROMIC SLIGHT; TARGET CELLS SLIGHT; TEARDROP CELLS SLIGHT
[2017-12-06 09:06] LABS: BURR CELLS SLIGHT; OVALOCYTES SLIGHT
[2017-12-06 09:07] LABS: MICROCYTOSIS SLIGHT
[2017-12-06] MEDS: Lactobacillus Acidophilus 500 MU Cap PO SCH ×2 (09:15→17:51)
[2017-12-06] MEDS: Prenatal Multivit/Folic Acid/Iron Tab PO SCH (09:15)
[2017-12-06] MEDS: Pantoprazole 40 mg EC Tab PO SCH (09:16)
[2017-12-06] MEDS: EPOETIN ALFA 10,000 UNIT/ML ML SC SCH (09:16)
[2017-12-06] MEDS: MethylPREDNISolone 40 mg Vial IV SCH ×2 (09:16→21:29)
[2017-12-06] MEDS: LEFLUNOMIDE 20 MG PO SCH (09:19)
--- NOTE | 2017-12-06 11:19 | CP.PCM.PN ---
Subjective - Date & Time of Evaluation Date of Evaluation: 12/06/17 Time of Evaluation: 11:16 - Subjective Subjective: Patient seen and examined at bedside. No overnight events reported. Patient still reports pruritus on upper extremities and torso. She also complains of productive cough. Overall she states that she feels her symptoms are worsening. Chest pain and SOB have not improved from yesterday. She denies any bowel changes or urinary symptoms. Patient states that she would like to go home and that she may sign out AMA. Objective - Vital Signs/Intake and Output Vital Signs (last 24 hours): Temp Pulse Resp BP Pulse Ox 98.7 F 107 H 20 121/77 95 12/06/17 00:00 12/06/17 00:00 12/06/17 00:00 12/06/17 00:00 12/06/17 00:00 Intake and Output: 12/06/17 12/06/17 06:59 18:59 Intake Total 650 240 Balance 650 240 - Medications Medications: Current Medications Albuterol/Ipratropium (Duoneb 3 Mg/0.5 Mg (3 Ml) Ud) 3 ml INH RQ6 [facility] Last Admin: 12/06/17 08:42 Dose: 3 ml Apixaban (Eliquis) 5 mg PO BID [facility] Last Admin: 12/06/17 09:16 Dose: 5 mg Diphenhydramine HCl (Benadryl) 25 mg IVP Q4H PRN PRN Reason: Itching / Pruritus Last Admin: 12/06/17 09:27 Dose: 25 mg Epoetin Alonzo (Procrit) 10,000 unit SC MWF [facility] Last Admin: 12/06/17 09:16 Dose: 10,000 unit Famotidine (Pepcid) 20 mg PO DAILY [facility] Last Admin: 12/06/17 10:43 Dose: 20 mg Fluticasone/Vilanterol (Breo Ellipta 100-25 Mcg Inh) 1 puff INH RQ24 [facility] Folic Acid (Folic Acid) 1 mg PO DAILY [facility] Last Admin: 12/06/17 09:16 Dose: 1 mg Gabapentin (Neurontin) 300 mg PO TID [facility] Last Admin: 12/06/17 09:16 Dose: 300 mg Home Med (Patient's Own Medication) 1 tab PO DAILY [facility] Last Admin: 12/06/17 09:19 Dose: 1 tab Hydroxychloroquine Sulfate (Plaquenil) 200 mg PO BID [facility]; Protocol Last Admin: 12/06/17 09:15 Dose: 200 mg Moxifloxacin HCl (Avelox Iv 400mg/250ml Ns) 400 mg in 250 mls @ 167 mls/hr IVPB Q24H [facility]; Protocol Last Admin: 12/05/17 22:36 Dose: 167 mls/hr Ferric Sodium Gluconate Complex 125 mg/ Sodium Chloride 110 mls @ 105 mls/hr IVPB Q24H [facility] Stop: 12/12/17 18:31 Last Admin: 12/05/17 18:25 Dose: 105 mls/hr Piperacillin Sod/Tazobactam Sod (Zosyn 3.375 Gm Iv Premix) 3.375 gm in 50 mls @ 100 mls/hr IVPB Q6H [facility]; Protocol Lactobacillus Acidophilus (Bacid Acidophilus) 1 cap PO BID [facility] Last Admin: 12/06/17 09:15 Dose: 1 cap Methylprednisolone (Solu-Medrol) 40 mg IV Q12H [facility] Last Admin: 12/06/17 09:16 Dose: 40 mg Montelukast Sodium (Singulair) 10 mg PO DAILY [facility] Last Admin: 12/06/17 09:16 Dose: 10 mg Morphine Sulfate (Morphine) 2 mg IVP Q4 PRN Olanzapine (Zyprexa) 5 mg PO DAILY [facility] Last Admin: 12/06/17 09:15 Dose: 5 mg Potassium Chloride (K-Dur 20 Meq Er Tab) 40 meq PO DAILY@0800 [facility] Last Admin: 12/06/17 07:45 Dose: 40 meq Multivit/Folic Acid/Iron () 1 tab PO DAILY [facility] Last Admin: 12/06/17 09:15 Dose: 1 tab Sulfasalazine (Azulfidine) 1,500 mg PO BID [facility]; Protocol Last Admin: 12/06/17 09:15 Dose: 1,500 mg - Labs Labs: 12/06/17 07:32 12/06/17 07:32 PT 11.2 SECONDS (9.7-12.2) 12/02/17 16:42 INR 1.0 12/02/17 16:42 APTT 30 SECONDS (21-34) 12/02/17 16:42 - Constitutional Appears: Non-toxic, No Acute Distress - Head Exam Head Exam: ATRAUMATIC, NORMAL INSPECTION, NORMOCEPHALIC - Eye Exam Eye Exam: EOMI. absent: Scleral icterus - ENT Exam ENT Exam: Mucous Membranes Moist - Neck Exam Neck Exam: Normal Inspection - Respiratory Exam Respiratory Exam: Chest Wall Tenderness, Rales, Wheezes, NORMAL BREATHING PATTERN. absent: Accessory Muscle Use, Clear to Ausculation Bilateral, Rhonchi, Respiratory Distress, Stridor - Cardiovascular Exam Cardiovascular Exam: RRR, +S1, +S2 - GI/Abdominal Exam GI & Abdominal Exam: Soft, Tenderness (Diffuse), Normal Bowel Sounds - Extremities Exam Extremities Exam: Normal Capillary Refill. absent: Pedal Edema - Back Exam Back Exam: CVA tenderness (L), CVA tenderness (R), paraspinal tenderness - Neurological Exam Neurological Exam: Alert, Awake, Oriented x3 - Psychiatric Exam Psychiatric exam: Normal Affect. absent: Normal Mood - Skin Skin Exam: Rash (Upper Extremities. ) Assessment and Plan - Assessment and Plan (Free Text) Assessment: 32 year old female with a PMHx of Fibromyalgia, Subclavian DVT, Asthma, Rheumatoid Arthritis, Pneumonia admitted for evaluation and treatment of intractable pain and abnormal lung imaging. Chest CT on admission showed " Increasing nodular interstitial infiltrate involving bilateral mid to lower lung zones and to a lesser extent involvement of the upper lobes. Appearance remains concerning for opportunistic infection. No pleural effusion. No pneumothorax. No large central or segmental pulmonary embolus evident." CXR on admission showed "Trace left pleural effusion costophrenic angle and/or chronic pleural thickeni ng here, no change since 2016. No interval increasing pleural effusion or pneumothorax seen. " Plan: Interstitial Lung Disease/SOB Viral vs Autoimmune etiology Pulmonology Consulted (Dr. Veliz) F/U TOMER lvls. Rheumatology Consul (Dr. Nichols) Chest CT 12/02 - Increasing nodular interstitial infiltrate involving bilateral mid to lower lung zones and to a lesser extent involvement of the upper lobes. Appearance remains concerning for opportunistic infection. No pleural effusion. No pneumothorax. No large central or segmental pulmonary embolus evident. Chest Xray 12/03 - Trace left pleural effusion costophrenic angle and/or chronic pleural thickening here, no change since 2016. No interval increasing pleural effusion or pneumothorax seen. 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 Patient can likely be DC'd after negative AFB Cultures Isolation Meds: Moxifloxacin 400mg IV Daily Rheumatoid Arthritis/Intractable Pain Rheumatology Consult (Dr. Nichols) Meds: Hydrocychloroquine 200mg BID Leflunomide 20mg PO Daily SulfaSalazine 1500mg BP BID Morphine 2 Q4 PRN tizanidine 4mg PO BID Gabapentin 300mg PO TID UTI Urine Culture (12/03/17): Positive for E.Coli. Meds: Started Nitrofuratoin 100 BID on 12/06/17. (Day 1 of ) Asthma ABG (12/04/17): 7,51/38/89/30.3 Meds: Montelukast 10mg PO Daily DuoNebs RQ6H PRN Solumedrol 40mg IV Q12H Iron Def. Anemia. HgB - 8.2 today, Cont. to monitor. Anemia Workup Ordered Type and Cross Match, Transfuse for HgB < 7 Meds: Ferrlecit 125mg IVP [facility] Epoetin Alonzo 40,000 Unit IV MWF Hx of Subclavian DVT Meds: Eliquis 5 PO BID Pruritus/Rash Meds: PRN Benadryl Loratidine Daily Proph Pepcid Folate, Multivitamins Lactobacillus Acidophilus Lovenox K-dur 20 meq Daily Dispo: Patient will likely be abled to be discharged post negative AFB sputum c ultures. She will need to follow up with her PMD, her Real Estate Transaction Coordinator and Site Controller (Dr. Veliz) for possible outpatient bronchoscopy. She should go home with 5 more days of PO Moxifloxacin, and complete her Nitrofuratoin regiment for her UTI. Patient discussed with Dr. Lilli Cruz, PGY-2
[2017-12-06] MEDS ORDERED: Piperacill/Tazo 3.375gm in Dex 3.375 GM/50 ML BAG IVPB SCH ×2 (12:00→13:30)
--- NOTE | 2017-12-06 13:50 | CP.PCM.PN ---
Subjective - Date & Time of Evaluation Date of Evaluation: 12/06/17 Time of Evaluation: 08:00 - Subjective Subjective: Patient was seen and examined at bedside. Afebrile and in no acute distress. Cough is persistent with yellow/green sputum. SOB improving, wearing NC throughout the day. Denies chest pain. Patient will be going for Bronchoscopy tomorrow 12/07 to rule out opportunistic infection. IgE level 102 (normal) PLAN - Angiotensin converting enzyme ordered. Will follow up. - Continue current plan - Bronchoscopy - Requested medical records, will review. Objective - Vital Signs/Intake and Output Vital Signs (last 24 hours): Temp Pulse Resp BP Pulse Ox 97.7 F 71 20 121/80 95 12/06/17 08:00 12/06/17 08:00 12/06/17 08:00 12/06/17 08:00 12/06/17 08:00 Intake and Output: 12/06/17 12/06/17 06:59 18:59 Intake Total 650 240 Balance 650 240 - Medications Medications: Current Medications Albuterol/Ipratropium (Duoneb 3 Mg/0.5 Mg (3 Ml) Ud) 3 ml INH RQ6 [facility] Last Admin: 12/06/17 08:42 Dose: 3 ml Apixaban (Eliquis) 5 mg PO BID [facility] Last Admin: 12/06/17 09:16 Dose: 5 mg Diphenhydramine HCl (Benadryl) 25 mg IVP Q4H PRN PRN Reason: Itching / Pruritus Last Admin: 12/06/17 13:21 Dose: 25 mg Epoetin Alonzo (Procrit) 10,000 unit SC MWF [facility] Last Admin: 12/06/17 09:16 Dose: 10,000 unit Famotidine (Pepcid) 20 mg PO DAILY [facility] Last Admin: 12/06/17 10:43 Dose: 20 mg Fluticasone/Vilanterol (Breo Ellipta 100-25 Mcg Inh) 1 puff INH RQ24 [facility] Folic Acid (Folic Acid) 1 mg PO DAILY [facility] Last Admin: 12/06/17 09:16 Dose: 1 mg Gabapentin (Neurontin) 300 mg PO TID [facility] Last Admin: 12/06/17 13:20 Dose: 300 mg Home Med (Patient's Own Medication) 1 tab PO DAILY [facility] Last Admin: 12/06/17 09:19 Dose: 1 tab Hydroxychloroquine Sulfate (Plaquenil) 200 mg PO BID [facility]; Protocol Last Admin: 12/06/17 09:15 Dose: 200 mg Moxifloxacin HCl (Avelox Iv 400mg/250ml Ns) 400 mg in 250 mls @ 167 mls/hr IVPB Q24H [facility]; Protocol Last Admin: 12/05/17 22:36 Dose: 167 mls/hr Ferric Sodium Gluconate Complex 125 mg/ Sodium Chloride 110 mls @ 105 mls/hr IVPB Q24H [facility] Stop: 12/12/17 18:31 Last Admin: 12/05/17 18:25 Dose: 105 mls/hr Lactobacillus Acidophilus (Bacid Acidophilus) 1 cap PO BID [facility] Last Admin: 12/06/17 09:15 Dose: 1 cap Loratadine (Claritin) 10 mg PO DAILY [facility] Last Admin: 12/06/17 13:06 Dose: 10 mg Methylprednisolone (Solu-Medrol) 40 mg IV Q12H [facility] Last Admin: 12/06/17 09:16 Dose: 40 mg Montelukast Sodium (Singulair) 10 mg PO DAILY [facility] Last Admin: 12/06/17 09:16 Dose: 10 mg Morphine Sulfate (Morphine) 2 mg IVP Q4 PRN Last Admin: 12/06/17 13:20 Dose: 2 mg Nitrofurantoin Macrocrystals (Macrobid) 100 mg PO Q12H [facility]; Protocol Stop: 12/16/17 14:01 Olanzapine (Zyprexa) 5 mg PO DAILY [facility] Last Admin: 12/06/17 09:15 Dose: 5 mg Potassium Chloride (K-Dur 20 Meq Er Tab) 40 meq PO DAILY@0800 [facility] Last Admin: 12/06/17 07:45 Dose: 40 meq Multivit/Folic Acid/Iron () 1 tab PO DAILY [facility] Last Admin: 12/06/17 09:15 Dose: 1 tab Sulfasalazine (Azulfidine) 1,500 mg PO BID [facility]; Protocol Last Admin: 12/06/17 09:15 Dose: 1,500 mg - Labs Labs: 12/06/17 07:32 12/06/17 07:32 PT 11.2 SECONDS (9.7-12.2) 12/02/17 16:42 INR 1.0 12/02/17 16:42 APTT 30 SECONDS (21-34) 12/02/17 16:42 Assessment and Plan (1) Asthma exacerbation Status: Acute (2) Arthritis, rheumatoid Status: Acute (3) DVT (deep venous thrombosis) Status: Acute (4) Anemia Status: Chronic
[2017-12-06 17:55] LABS: % CD4 (T HELPER CELL) 36 Percent (30-61); % CD8 (SUPPRESSOR T CELL) 49 Percent (12-42); ABSOLUTE CD3 CELLS 686 Cells/mcL (840-3060); ABSOLUTE CD4 CELLS 289 Cells/mcL (490-1740); ABSOLUTE CD8 CELLS 388 Cells/mcL (180-1170); ABSOLUTE LYMPHOCYTES 797 Cells/mcL (850-3900); HELPER/SUPPRESSOR RATIO 0.74 Ratio (0.86-5.00)
[2017-12-06] MEDS: Ferric Sodium Gluconat Complex 125 MG in Sodium Chloride 0.9% 100 ML IVPB SCH (18:50)
--- NOTE | 2017-12-06 19:21 | CP.PCM.PN ---
Subjective - Date & Time of Evaluation Date of Evaluation: 12/06/17 Time of Evaluation: 09:00 - Subjective Subjective: improving iv rx in progress for FOB Objective - Vital Signs/Intake and Output Vital Signs (last 24 hours): Temp Pulse Resp BP Pulse Ox 97.3 F L 83 20 114/77 100 12/06/17 16:00 12/06/17 16:00 12/06/17 16:00 12/06/17 16:00 12/06/17 16:00 Intake and Output: 12/06/17 12/07/17 18:59 06:59 Intake Total 240 Balance 240 - Medications Medications: Current Medications Albuterol/Ipratropium (Duoneb 3 Mg/0.5 Mg (3 Ml) Ud) 3 ml INH RQ6 [facility] Last Admin: 12/06/17 08:42 Dose: 3 ml Apixaban (Eliquis) 5 mg PO BID [facility] Last Admin: 12/06/17 17:50 Dose: 5 mg Diphenhydramine HCl (Benadryl) 25 mg IVP Q4H PRN PRN Reason: Itching / Pruritus Last Admin: 12/06/17 17:30 Dose: 25 mg Epoetin Alonzo (Procrit) 10,000 unit SC MWF [facility] Last Admin: 12/06/17 09:16 Dose: 10,000 unit Famotidine (Pepcid) 20 mg PO DAILY [facility] Last Admin: 12/06/17 10:43 Dose: 20 mg Fluticasone/Vilanterol (Breo Ellipta 100-25 Mcg Inh) 1 puff INH RQ24 [facility] Folic Acid (Folic Acid) 1 mg PO DAILY [facility] Last Admin: 12/06/17 09:16 Dose: 1 mg Gabapentin (Neurontin) 300 mg PO TID [facility] Last Admin: 12/06/17 17:50 Dose: 300 mg Home Med (Patient's Own Medication) 1 tab PO DAILY [facility] Last Admin: 12/06/17 09:19 Dose: 1 tab Hydroxychloroquine Sulfate (Plaquenil) 200 mg PO BID [facility]; Protocol Last Admin: 12/06/17 17:51 Dose: 200 mg Moxifloxacin HCl (Avelox Iv 400mg/250ml Ns) 400 mg in 250 mls @ 167 mls/hr IVPB Q24H [facility]; Protocol Last Admin: 12/05/17 22:36 Dose: 167 mls/hr Ferric Sodium Gluconate Complex 125 mg/ Sodium Chloride 110 mls @ 105 mls/hr IVPB Q24H [facility] Stop: 12/12/17 18:31 Last Admin: 12/06/17 18:50 Dose: 105 mls/hr Lactobacillus Acidophilus (Bacid Acidophilus) 1 cap PO BID [facility] Last Admin: 12/06/17 17:51 Dose: 1 cap Loratadine (Claritin) 10 mg PO DAILY [facility] Last Admin: 12/06/17 13:06 Dose: 10 mg Methylprednisolone (Solu-Medrol) 40 mg IV Q12H [facility] Last Admin: 12/06/17 09:16 Dose: 40 mg Montelukast Sodium (Singulair) 10 mg PO DAILY [facility] Last Admin: 12/06/17 09:16 Dose: 10 mg Morphine Sulfate (Morphine) 2 mg IVP Q4 PRN Last Admin: 12/06/17 17:30 Dose: 2 mg Nitrofurantoin Macrocrystals (Macrobid) 100 mg PO Q12H [facility]; Protocol Stop: 12/16/17 14:01 Last Admin: 12/06/17 14:39 Dose: 100 mg Olanzapine (Zyprexa) 5 mg PO DAILY [facility] Last Admin: 12/06/17 09:15 Dose: 5 mg Potassium Chloride (K-Dur 20 Meq Er Tab) 40 meq PO DAILY@0800 [facility] Last Admin: 12/06/17 07:45 Dose: 40 meq Multivit/Folic Acid/Iron () 1 tab PO DAILY [facility] Last Admin: 12/06/17 09:15 Dose: 1 tab Sulfasalazine (Azulfidine) 1,500 mg PO BID [facility]; Protocol Last Admin: 12/06/17 17:51 Dose: 1,500 mg - Labs Labs: 12/06/17 07:32 12/06/17 07:32 PT 11.2 SECONDS (9.7-12.2) 12/02/17 16:42 INR 1.0 12/02/17 16:42 APTT 30 SECONDS (21-34) 12/02/17 16:42 - Constitutional Appears: Non-toxic, Chronically Ill - Head Exam Head Exam: NORMOCEPHALIC - Eye Exam Eye Exam: absent: Scleral icterus - ENT Exam ENT Exam: Mucous Membranes Dry - Neck Exam Neck Exam: absent: Lymphadenopathy - Respiratory Exam Respiratory Exam: Decreased Breath Sounds, Rhonchi - Cardiovascular Exam Cardiovascular Exam: REGULAR RHYTHM - GI/Abdominal Exam GI & Abdominal Exam: Distended, Soft Assessment and Plan (1) Chest pain Status: Acute (2) SOB (shortness of breath) Status: Acute (3) Arthritis, rheumatoid Status: Acute (4) Asthma Status: Acute
--- NOTE | 2017-12-06 19:51 | CP.PCM.PN ---
Subjective - Date & Time of Evaluation Date of Evaluation: 12/06/17 Time of Evaluation: 08:15 - Subjective Subjective: clinically same Objective - Vital Signs/Intake and Output Vital Signs (last 24 hours): Temp Pulse Resp BP Pulse Ox 97.3 F L 83 20 114/77 100 12/06/17 16:00 12/06/17 16:00 12/06/17 16:00 12/06/17 16:00 12/06/17 16:00 Intake and Output: 12/06/17 12/07/17 18:59 06:59 Intake Total 240 Balance 240 - Medications Medications: Current Medications Albuterol/Ipratropium (Duoneb 3 Mg/0.5 Mg (3 Ml) Ud) 3 ml INH RQ6 [facility] Last Admin: 12/06/17 08:42 Dose: 3 ml Apixaban (Eliquis) 5 mg PO BID [facility] Last Admin: 12/06/17 17:50 Dose: 5 mg Diphenhydramine HCl (Benadryl) 25 mg IVP Q4H PRN PRN Reason: Itching / Pruritus Last Admin: 12/06/17 17:30 Dose: 25 mg Epoetin Alonzo (Procrit) 10,000 unit SC MWF [facility] Last Admin: 12/06/17 09:16 Dose: 10,000 unit Famotidine (Pepcid) 20 mg PO DAILY [facility] Last Admin: 12/06/17 10:43 Dose: 20 mg Fluticasone/Vilanterol (Breo Ellipta 100-25 Mcg Inh) 1 puff INH RQ24 [facility] Folic Acid (Folic Acid) 1 mg PO DAILY [facility] Last Admin: 12/06/17 09:16 Dose: 1 mg Gabapentin (Neurontin) 300 mg PO TID [facility] Last Admin: 12/06/17 17:50 Dose: 300 mg Home Med (Patient's Own Medication) 1 tab PO DAILY [facility] Last Admin: 12/06/17 09:19 Dose: 1 tab Hydroxychloroquine Sulfate (Plaquenil) 200 mg PO BID [facility]; Protocol Last Admin: 12/06/17 17:51 Dose: 200 mg Moxifloxacin HCl (Avelox Iv 400mg/250ml Ns) 400 mg in 250 mls @ 167 mls/hr IVPB Q24H [facility]; Protocol Last Admin: 12/05/17 22:36 Dose: 167 mls/hr Ferric Sodium Gluconate Complex 125 mg/ Sodium Chloride 110 mls @ 105 mls/hr IVPB Q24H [facility] Stop: 12/12/17 18:31 Last Admin: 12/06/17 18:50 Dose: 105 mls/hr Lactobacillus Acidophilus (Bacid Acidophilus) 1 cap PO BID [facility] Last Admin: 12/06/17 17:51 Dose: 1 cap Loratadine (Claritin) 10 mg PO DAILY [facility] Last Admin: 12/06/17 13:06 Dose: 10 mg Methylprednisolone (Solu-Medrol) 40 mg IV Q12H [facility] Last Admin: 12/06/17 09:16 Dose: 40 mg Montelukast Sodium (Singulair) 10 mg PO DAILY [facility] Last Admin: 12/06/17 09:16 Dose: 10 mg Morphine Sulfate (Morphine) 2 mg IVP Q4 PRN Last Admin: 12/06/17 17:30 Dose: 2 mg Nitrofurantoin Macrocrystals (Macrobid) 100 mg PO Q12H [facility]; Protocol Stop: 12/16/17 14:01 Last Admin: 12/06/17 14:39 Dose: 100 mg Olanzapine (Zyprexa) 5 mg PO DAILY [facility] Last Admin: 12/06/17 09:15 Dose: 5 mg Potassium Chloride (K-Dur 20 Meq Er Tab) 40 meq PO DAILY@0800 [facility] Last Admin: 12/06/17 07:45 Dose: 40 meq Multivit/Folic Acid/Iron () 1 tab PO DAILY [facility] Last Admin: 12/06/17 09:15 Dose: 1 tab Sulfasalazine (Azulfidine) 1,500 mg PO BID [facility]; Protocol Last Admin: 12/06/17 17:51 Dose: 1,500 mg - Labs Labs: 12/06/17 07:32 12/06/17 07:32 PT 11.2 SECONDS (9.7-12.2) 12/02/17 16:42 INR 1.0 12/02/17 16:42 APTT 30 SECONDS (21-34) 12/02/17 16:42
[2017-12-06] MEDS: Moxifloxacin IV 400mg/250ml NS 400 MG/250 ML BAG IVPB SCH (22:29)
[2017-12-07] MEDS: DiphenhydrAMINE 50 mg/ml Inj IVP PRN ×5 (01:23→22:27)
[2017-12-07] MEDS: Albuterol-Ipratrop 3 mg / 0.5 (3 ml) UD INH SCH ×5 (01:29→19:45)
[2017-12-07 06:55] LABS: BASO % 0.2 % (0.0-2.0); HEMOGLOBIN 8.2 g/dL (11.0-16.0); LYMPH # 0.8 K/uL (1.0-4.3); MEAN CELL VOLUME 79.9 fL (81.0-99.0); MEAN CORPUSCULAR HEMOGLOBIN 24.4 pg (27.0-31.0); MEAN CORPUSCULAR HGB CONC 30.5 g/dL (33.0-37.0); MEAN PLATELET VOLUME 6.4 fL (7.2-11.7); MONO # 1.4 K/uL (0.0-0.8); MONO % 8.8 % (0.0-10.0); NEUT # 13.5 K/uL (1.8-7.0); NRBC % 10.1 % (0.0-2.0); PLATELET COUNT 407 K/uL (130-400); RBC 3.36 Mil/uL (3.80-5.20); RED CELL DISTRIBUTION WIDTH 30.9 % (11.5-14.5); WHITE BLOOD COUNT 15.7 K/uL (4.8-10.8)
[2017-12-07 07:02] LABS: ALBUMIN 3.1 g/dL (3.5-5.0); ALT/SGPT 26 U/L (9-52); AST/SGOT 20 U/L (14-36); BLOOD UREA NITROGEN 11 mg/dL (7-17); CALCIUM 8.6 mg/dl (8.6-10.4); GFR NON-AFRICAN AMERICAN > 60
[2017-12-07] MEDS ORDERED: Lidocaine Hydrochloride 0 ML INJ ONE ×2 (07:55)
[2017-12-07] MEDS ORDERED: EPINEPHrine 1 mg/ml (1:1000) Inj ONE (07:55)
[2017-12-07] MEDS ORDERED: Sodium Chloride 0.9% 0 ML IV ONE (07:56)
[2017-12-07] MEDS ORDERED: Lidocaine Hydrochloride 5 ML INJ ONE (08:23)
[2017-12-07] MEDS ORDERED: Succinylcholine Chloride 20 mg/ml Syr (5 ml) IV ONE (08:23)
[2017-12-07] MEDS ORDERED: Propofol 10 mg/ml Inj (20 ML) ONE (08:23)
[2017-12-07] MEDS ORDERED: Neostigmine Methylsulfate 3mg/3ml Syringe IV ONE (08:52)
[2017-12-07] MEDS: Potassium Chloride 20 mEq ER Tab PO SCH ×2 (08:56→10:18)
[2017-12-07] MEDS ORDERED: Albuterol HFA 90 mcg/actuation (8 g) ONE (08:59)
[2017-12-07] MEDS ORDERED: HYDROmorphone 0.5 mg/0.5 ml ISec IVP PRN (09:07)
[2017-12-07] MEDS: Lactobacillus Acidophilus 500 MU Cap PO SCH ×3 (09:13→18:13)
[2017-12-07] MEDS: LEFLUNOMIDE 20 MG PO SCH ×2 (09:14→10:20)
[2017-12-07] MEDS: Prenatal Multivit/Folic Acid/Iron Tab PO SCH ×2 (09:15→10:21)
[2017-12-07] MEDS: MethylPREDNISolone 40 mg Vial IV SCH ×3 (09:15→21:27)
--- NOTE | 2017-12-07 09:53 | CP.PCM.PN ---
Subjective - Date & Time of Evaluation Date of Evaluation: 12/07/17 Time of Evaluation: 09:30 - Subjective Subjective: patient seen and examined Status post bronchoscopy/bronchoalveolar lavage and brushing done Coughing up blood tinged sputum No shortness of breath Afebrile Chest x-ray showed no pneumothorax Objective - Vital Signs/Intake and Output Vital Signs (last 24 hours): Temp Pulse Resp BP Pulse Ox 98.0 F 67 20 123/74 95 12/07/17 07:47 12/07/17 07:47 12/07/17 07:47 12/07/17 07:47 12/07/17 07:47 Intake and Output: 12/07/17 12/07/17 06:59 18:59 Intake Total 710 50 Balance 710 50 - Medications Medications: Current Medications Albuterol/Ipratropium (Duoneb 3 Mg/0.5 Mg (3 Ml) Ud) 3 ml INH RQ6 [facility] Last Admin: 12/07/17 09:20 Dose: 3 ml Apixaban (Eliquis) 5 mg PO BID [facility] Last Admin: 12/07/17 09:13 Dose: Not Given Diphenhydramine HCl (Benadryl) 25 mg IVP Q4H PRN PRN Reason: Itching / Pruritus Last Admin: 12/07/17 05:23 Dose: 25 mg Epoetin Alonzo (Procrit) 10,000 unit SC MWF [facility] Last Admin: 12/06/17 09:16 Dose: 10,000 unit Famotidine (Pepcid) 20 mg PO DAILY [facility] Last Admin: 12/07/17 09:14 Dose: Not Given Fluticasone/Vilanterol (Breo Ellipta 100-25 Mcg Inh) 1 puff INH RQ24 [facility] Folic Acid (Folic Acid) 1 mg PO DAILY [facility] Last Admin: 12/07/17 09:14 Dose: Not Given Gabapentin (Neurontin) 300 mg PO TID [facility] Last Admin: 12/07/17 09:14 Dose: Not Given Home Med (Patient's Own Medication) 1 tab PO DAILY [facility] Last Admin: 12/07/17 09:14 Dose: Not Given Hydromorphone HCl (Dilaudid) 0.5 mg IVP Q15M PRN PRN Reason: Pain, moderate (4-7) Stop: 12/07/17 11:07 Hydroxychloroquine Sulfate (Plaquenil) 200 mg PO BID [facility]; Protocol Last Admin: 12/07/17 09:15 Dose: Not Given Moxifloxacin HCl (Avelox Iv 400mg/250ml Ns) 400 mg in 250 mls @ 167 mls/hr IVPB Q24H [facility]; Protocol Last Admin: 12/06/17 22:29 Dose: 167 mls/hr Ferric Sodium Gluconate Complex 125 mg/ Sodium Chloride 110 mls @ 105 mls/hr IVPB Q24H [facility] Stop: 12/12/17 18:31 Last Admin: 12/06/17 18:50 Dose: 105 mls/hr Lactobacillus Acidophilus (Bacid Acidophilus) 1 cap PO BID [facility] Last Admin: 12/07/17 09:13 Dose: Not Given Loratadine (Claritin) 10 mg PO DAILY [facility] Last Admin: 12/06/17 13:06 Dose: 10 mg Methylprednisolone (Solu-Medrol) 40 mg IV Q12H [facility] Last Admin: 12/07/17 09:15 Dose: Not Given Metoclopramide HCl (Reglan) 10 mg IVP ONCE PRN PRN Reason: Nausea/Vomiting Stop: 12/07/17 11:07 Montelukast Sodium (Singulair) 10 mg PO DAILY [facility] Last Admin: 12/07/17 09:15 Dose: Not Given Morphine Sulfate (Morphine) 2 mg IVP Q4 PRN Last Admin: 12/07/17 05:23 Dose: 2 mg Nitrofurantoin Macrocrystals (Macrobid) 100 mg PO Q12H [facility]; Protocol Stop: 12/16/17 14:01 Last Admin: 12/07/17 01:15 Dose: 100 mg Olanzapine (Zyprexa) 5 mg PO DAILY [facility] Last Admin: 12/07/17 09:15 Dose: Not Given Potassium Chloride (K-Dur 20 Meq Er Tab) 40 meq PO DAILY@0800 [facility] Last Admin: 12/07/17 08:56 Dose: Not Given Multivit/Folic Acid/Iron () 1 tab PO DAILY [facility] Last Admin: 12/07/17 09:15 Dose: Not Given Sulfasalazine (Azulfidine) 1,500 mg PO BID [facility]; Protocol Last Admin: 12/07/17 09:13 Dose: Not Given - Labs Labs: 12/07/17 06:40 12/07/17 06:40 PT 11.2 SECONDS (9.7-12.2) 12/02/17 16:42 INR 1.0 12/02/17 16:42 APTT 30 SECONDS (21-34) 12/02/17 16:42 Assessment and Plan (1) Asthma exacerbation Status: Acute (2) Arthritis, rheumatoid Status: Acute (3) DVT (deep venous thrombosis) Status: Acute (4) Anemia Status: Chronic
--- NOTE | 2017-12-07 10:07 | RAD ---
Date of service: 12/07/2017 HISTORY: s p bronchoscopy r o ptx COMPARISON: No prior. FINDINGS: LUNGS: Trace linear atelectasis inferior left lung zone laterally. PLEURA: No significant pleural effusion identified, no pneumothorax apparent. CARDIOVASCULAR: No aortic atherosclerotic calcification present. Normal cardiac size. No pulmonary vascular congestion. OSSEOUS STRUCTURES: Mammillation right hemidiaphragm reiterated. VISUALIZED UPPER ABDOMEN: Normal. OTHER FINDINGS: None. IMPRESSION: Trace linear atelectasis inferior left lung zone laterally. No airspace disease identified bilaterally otherwise. No pleural effusion, pneumothorax or acute cardiovascular changes identified.
[2017-12-07 10:17] LABS: BANDS 6 % (0-2); LYMPHOCYTE 6 % (20-40); MONOCYTE 7 % (0-10); NEUTROPHIL 81 % (50-75); NUCLEATED RED BLOOD CELL 7 % (0-0); TOTAL CELLS COUNTED 100
[2017-12-07 10:18] LABS: ANISOCYTOSIS MARKED; PLATELET ESTIMATE NORMAL (NORMAL)
[2017-12-07 10:19] LABS: HYPOCHROMIC SLIGHT; MICROCYTOSIS MODERATE; POIKILOCYTOSIS SLIGHT; POLYCHROMIC SLIGHT
[2017-12-07 10:20] LABS: OVALOCYTES SLIGHT; SPHEROCYTES SLIGHT; TEARDROP CELLS SLIGHT
[2017-12-07 12:07] LABS: % CD4 (T HELPER CELL) 48 Percent (30-61); % CD8 (SUPPRESSOR T CELL) 42 Percent (12-42); ABSOLUTE CD4 CELLS 527 Cells/mcL (490-1740); ABSOLUTE CD8 CELLS 460 Cells/mcL (180-1170); ABSOLUTE LYMPHOCYTES 1102 Cells/mcL (850-3900); HELPER/SUPPRESSOR RATIO 1.15 Ratio (0.86-5.00)
--- NOTE | 2017-12-07 13:47 | CP.PCM.PN ---
Subjective - Date & Time of Evaluation Date of Evaluation: 12/07/17 Time of Evaluation: 08:00 - Subjective Subjective: clinically same Objective - Vital Signs/Intake and Output Vital Signs (last 24 hours): Temp Pulse Resp BP Pulse Ox 97.6 F 81 12 118/61 95 12/07/17 09:30 12/07/17 09:30 12/07/17 09:30 12/07/17 09:30 12/07/17 09:30 Intake and Output: 12/07/17 12/07/17 06:59 18:59 Intake Total 710 50 Balance 710 50 - Medications Medications: Current Medications Albuterol/Ipratropium (Duoneb 3 Mg/0.5 Mg (3 Ml) Ud) 3 ml INH RQ6 [facility] Last Admin: 12/07/17 09:20 Dose: 3 ml Apixaban (Eliquis) 5 mg PO BID [facility] Last Admin: 12/07/17 09:13 Dose: Not Given Diphenhydramine HCl (Benadryl) 25 mg IVP Q4H PRN PRN Reason: Itching / Pruritus Last Admin: 12/07/17 10:19 Dose: 25 mg Epoetin Alonzo (Procrit) 10,000 unit SC MWF [facility] Last Admin: 12/06/17 09:16 Dose: 10,000 unit Famotidine (Pepcid) 20 mg PO DAILY [facility] Last Admin: 12/07/17 10:18 Dose: 20 mg Fluticasone/Vilanterol (Breo Ellipta 100-25 Mcg Inh) 1 puff INH RQ24 [facility] Folic Acid (Folic Acid) 1 mg PO DAILY [facility] Last Admin: 12/07/17 10:18 Dose: 1 mg Gabapentin (Neurontin) 300 mg PO TID [facility] Last Admin: 12/07/17 13:16 Dose: 300 mg Home Med (Patient's Own Medication) 1 tab PO DAILY [facility] Last Admin: 12/07/17 10:20 Dose: 1 tab Hydroxychloroquine Sulfate (Plaquenil) 200 mg PO BID [facility]; Protocol Last Admin: 12/07/17 10:21 Dose: 200 mg Moxifloxacin HCl (Avelox Iv 400mg/250ml Ns) 400 mg in 250 mls @ 167 mls/hr IVPB Q24H [facility]; Protocol Last Admin: 12/06/17 22:29 Dose: 167 mls/hr Ferric Sodium Gluconate Complex 125 mg/ Sodium Chloride 110 mls @ 105 mls/hr IVPB Q24H [facility] Stop: 12/12/17 18:31 Last Admin: 12/06/17 18:50 Dose: 105 mls/hr Lactobacillus Acidophilus (Bacid Acidophilus) 1 cap PO BID [facility] Last Admin: 12/07/17 10:21 Dose: 1 cap Loratadine (Claritin) 10 mg PO DAILY [facility] Last Admin: 12/07/17 10:18 Dose: 10 mg Methylprednisolone (Solu-Medrol) 40 mg IV Q12H [facility] Last Admin: 12/07/17 10:18 Dose: 40 mg Montelukast Sodium (Singulair) 10 mg PO DAILY [facility] Last Admin: 12/07/17 10:18 Dose: 10 mg Morphine Sulfate (Morphine) 2 mg IVP Q4 PRN Last Admin: 12/07/17 10:19 Dose: 2 mg Nitrofurantoin Macrocrystals (Macrobid) 100 mg PO Q12H [facility]; Protocol Stop: 12/16/17 14:01 Last Admin: 12/07/17 13:16 Dose: 100 mg Olanzapine (Zyprexa) 5 mg PO DAILY [facility] Last Admin: 12/07/17 10:22 Dose: 5 mg Potassium Chloride (K-Dur 20 Meq Er Tab) 40 meq PO DAILY@0800 [facility] Last Admin: 12/07/17 10:18 Dose: 40 meq Multivit/Folic Acid/Iron () 1 tab PO DAILY [facility] Last Admin: 12/07/17 10:21 Dose: 1 tab Sulfasalazine (Azulfidine) 1,500 mg PO BID [facility]; Protocol Last Admin: 12/07/17 10:20 Dose: 1,500 mg - Labs Labs: 12/07/17 06:40 12/07/17 06:40 PT 11.2 SECONDS (9.7-12.2) 12/02/17 16:42 INR 1.0 12/02/17 16:42 APTT 30 SECONDS (21-34) 12/02/17 16:42
[2017-12-07] MEDS: Ferric Sodium Gluconat Complex 125 MG in Sodium Chloride 0.9% 100 ML IVPB SCH (19:07)
--- NOTE | 2017-12-07 19:51 | CP.PCM.PN ---
Subjective - Date & Time of Evaluation Date of Evaluation: 12/06/17 Time of Evaluation: 19:00 - Subjective Subjective: Feels weak. Objective - Vital Signs/Intake and Output Vital Signs (last 24 hours): Temp Pulse Resp BP Pulse Ox 98.5 F 101 H 20 114/77 94 L 12/07/17 16:00 12/07/17 16:00 12/07/17 16:00 12/07/17 16:00 12/07/17 16:00 Intake and Output: 12/07/17 12/08/17 18:59 06:59 Intake Total 50 Balance 50 - Medications Medications: Current Medications Albuterol/Ipratropium (Duoneb 3 Mg/0.5 Mg (3 Ml) Ud) 3 ml INH RQ6 [facility] Last Admin: 12/07/17 19:45 Dose: 3 ml Apixaban (Eliquis) 5 mg PO BID [facility] Last Admin: 12/07/17 18:14 Dose: 5 mg Diphenhydramine HCl (Benadryl) 25 mg IVP Q4H PRN PRN Reason: Itching / Pruritus Last Admin: 12/07/17 14:30 Dose: 25 mg Epoetin Alonzo (Procrit) 10,000 unit SC MWF [facility] Last Admin: 12/06/17 09:16 Dose: 10,000 unit Famotidine (Pepcid) 20 mg PO DAILY [facility] Last Admin: 12/07/17 10:18 Dose: 20 mg Fluticasone/Vilanterol (Breo Ellipta 100-25 Mcg Inh) 1 puff INH RQ24 [facility] Folic Acid (Folic Acid) 1 mg PO DAILY [facility] Last Admin: 12/07/17 10:18 Dose: 1 mg Gabapentin (Neurontin) 300 mg PO TID [facility] Last Admin: 12/07/17 18:13 Dose: 300 mg Home Med (Patient's Own Medication) 1 tab PO DAILY [facility] Last Admin: 12/07/17 10:20 Dose: 1 tab Hydroxychloroquine Sulfate (Plaquenil) 200 mg PO BID [facility]; Protocol Last Admin: 12/07/17 18:13 Dose: 200 mg Moxifloxacin HCl (Avelox Iv 400mg/250ml Ns) 400 mg in 250 mls @ 167 mls/hr IVPB Q24H [facility]; Protocol Last Admin: 12/06/17 22:29 Dose: 167 mls/hr Ferric Sodium Gluconate Complex 125 mg/ Sodium Chloride 110 mls @ 105 mls/hr IVPB Q24H [facility] Stop: 12/12/17 18:31 Last Admin: 12/07/17 19:07 Dose: 105 mls/hr Lactobacillus Acidophilus (Bacid Acidophilus) 1 cap PO BID [facility] Last Admin: 12/07/17 18:13 Dose: 1 cap Loratadine (Claritin) 10 mg PO DAILY [facility] Last Admin: 12/07/17 10:18 Dose: 10 mg Methylprednisolone (Solu-Medrol) 40 mg IV Q12H [facility] Last Admin: 12/07/17 10:18 Dose: 40 mg Montelukast Sodium (Singulair) 10 mg PO DAILY [facility] Last Admin: 12/07/17 10:18 Dose: 10 mg Morphine Sulfate (Morphine) 2 mg IVP Q4 PRN Last Admin: 12/07/17 18:17 Dose: 2 mg Nitrofurantoin Macrocrystals (Macrobid) 100 mg PO Q12H [facility]; Protocol Stop: 12/16/17 14:01 Last Admin: 12/07/17 13:16 Dose: 100 mg Olanzapine (Zyprexa) 5 mg PO DAILY [facility] Last Admin: 12/07/17 10:22 Dose: 5 mg Potassium Chloride (K-Dur 20 Meq Er Tab) 40 meq PO DAILY@0800 [facility] Last Admin: 12/07/17 10:18 Dose: 40 meq Multivit/Folic Acid/Iron () 1 tab PO DAILY [facility] Last Admin: 12/07/17 10:21 Dose: 1 tab Sulfasalazine (Azulfidine) 1,500 mg PO BID [facility]; Protocol Last Admin: 12/07/17 18:14 Dose: 1,500 mg - Labs Labs: 12/07/17 06:40 12/07/17 06:40 PT 11.2 SECONDS (9.7-12.2) 12/02/17 16:42 INR 1.0 12/02/17 16:42 APTT 30 SECONDS (21-34) 12/02/17 16:42 - Head Exam Head Exam: ATRAUMATIC - Eye Exam Eye Exam: Normal appearance - ENT Exam ENT Exam: Mucous Membranes Dry - Respiratory Exam Respiratory Exam: NORMAL BREATHING PATTERN - Cardiovascular Exam Cardiovascular Exam: +S1, +S2 - GI/Abdominal Exam GI & Abdominal Exam: Normal Bowel Sounds Assessment and Plan (1) Anemia Assessment & Plan: iron deficiency anemia and chronic disease, on Ferrlecit and Procrit Status: Chronic (2) Leukocytosis Assessment & Plan: on antibiotics Status: Acute (3) DVT (deep venous thrombosis) Assessment & Plan: unprovoked on therapeutic anticoagulation. 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
--- NOTE | 2017-12-07 19:52 | CP.PCM.PN ---
Subjective - Date & Time of Evaluation Date of Evaluation: 12/07/17 Time of Evaluation: 17:00 - Subjective Subjective: Feels weak Objective - Vital Signs/Intake and Output Vital Signs (last 24 hours): Temp Pulse Resp BP Pulse Ox 98.5 F 101 H 20 114/77 94 L 12/07/17 16:00 12/07/17 16:00 12/07/17 16:00 12/07/17 16:00 12/07/17 16:00 Intake and Output: 12/07/17 12/08/17 18:59 06:59 Intake Total 50 Balance 50 - Medications Medications: Current Medications Albuterol/Ipratropium (Duoneb 3 Mg/0.5 Mg (3 Ml) Ud) 3 ml INH RQ6 [facility] Last Admin: 12/07/17 19:45 Dose: 3 ml Apixaban (Eliquis) 5 mg PO BID [facility] Last Admin: 12/07/17 18:14 Dose: 5 mg Diphenhydramine HCl (Benadryl) 25 mg IVP Q4H PRN PRN Reason: Itching / Pruritus Last Admin: 12/07/17 14:30 Dose: 25 mg Epoetin Alonzo (Procrit) 10,000 unit SC MWF [facility] Last Admin: 12/06/17 09:16 Dose: 10,000 unit Famotidine (Pepcid) 20 mg PO DAILY [facility] Last Admin: 12/07/17 10:18 Dose: 20 mg Fluticasone/Vilanterol (Breo Ellipta 100-25 Mcg Inh) 1 puff INH RQ24 [facility] Folic Acid (Folic Acid) 1 mg PO DAILY [facility] Last Admin: 12/07/17 10:18 Dose: 1 mg Gabapentin (Neurontin) 300 mg PO TID [facility] Last Admin: 12/07/17 18:13 Dose: 300 mg Home Med (Patient's Own Medication) 1 tab PO DAILY [facility] Last Admin: 12/07/17 10:20 Dose: 1 tab Hydroxychloroquine Sulfate (Plaquenil) 200 mg PO BID [facility]; Protocol Last Admin: 12/07/17 18:13 Dose: 200 mg Moxifloxacin HCl (Avelox Iv 400mg/250ml Ns) 400 mg in 250 mls @ 167 mls/hr IVPB Q24H [facility]; Protocol Last Admin: 12/06/17 22:29 Dose: 167 mls/hr Ferric Sodium Gluconate Complex 125 mg/ Sodium Chloride 110 mls @ 105 mls/hr IVPB Q24H [facility] Stop: 12/12/17 18:31 Last Admin: 12/07/17 19:07 Dose: 105 mls/hr Lactobacillus Acidophilus (Bacid Acidophilus) 1 cap PO BID [facility] Last Admin: 12/07/17 18:13 Dose: 1 cap Loratadine (Claritin) 10 mg PO DAILY [facility] Last Admin: 12/07/17 10:18 Dose: 10 mg Methylprednisolone (Solu-Medrol) 40 mg IV Q12H [facility] Last Admin: 12/07/17 10:18 Dose: 40 mg Montelukast Sodium (Singulair) 10 mg PO DAILY [facility] Last Admin: 12/07/17 10:18 Dose: 10 mg Morphine Sulfate (Morphine) 2 mg IVP Q4 PRN Last Admin: 12/07/17 18:17 Dose: 2 mg Nitrofurantoin Macrocrystals (Macrobid) 100 mg PO Q12H [facility]; Protocol Stop: 12/16/17 14:01 Last Admin: 12/07/17 13:16 Dose: 100 mg Olanzapine (Zyprexa) 5 mg PO DAILY [facility] Last Admin: 12/07/17 10:22 Dose: 5 mg Potassium Chloride (K-Dur 20 Meq Er Tab) 40 meq PO DAILY@0800 [facility] Last Admin: 12/07/17 10:18 Dose: 40 meq Multivit/Folic Acid/Iron () 1 tab PO DAILY [facility] Last Admin: 12/07/17 10:21 Dose: 1 tab Sulfasalazine (Azulfidine) 1,500 mg PO BID [facility]; Protocol Last Admin: 12/07/17 18:14 Dose: 1,500 mg - Labs Labs: 12/07/17 06:40 12/07/17 06:40 PT 11.2 SECONDS (9.7-12.2) 12/02/17 16:42 INR 1.0 12/02/17 16:42 APTT 30 SECONDS (21-34) 12/02/17 16:42 - Head Exam Head Exam: ATRAUMATIC - Eye Exam Eye Exam: Normal appearance - ENT Exam ENT Exam: Mucous Membranes Dry - Respiratory Exam Respiratory Exam: NORMAL BREATHING PATTERN - Cardiovascular Exam Cardiovascular Exam: +S1, +S2 - GI/Abdominal Exam GI & Abdominal Exam: Normal Bowel Sounds Assessment and Plan (1) Anemia Assessment & Plan: iron deficiency anemia and chronic disease, on Ferrlecit and Procrit Status: Chronic (2) Leukocytosis Assessment & Plan: on antibiotics Status: Acute (3) DVT (deep venous thrombosis) Assessment & Plan: unprovoked on therapeutic anticoagulation. 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
[2017-12-07] MEDS: Moxifloxacin IV 400mg/250ml NS 400 MG/250 ML BAG IVPB SCH (23:39)
[2017-12-08] MEDS: Albuterol-Ipratrop 3 mg / 0.5 (3 ml) UD INH SCH (01:05)
[2017-12-08] MEDS: DiphenhydrAMINE 50 mg/ml Inj IVP PRN ×5 (02:33→19:13)
[2017-12-08] MEDS: Potassium Chloride 20 mEq ER Tab PO SCH (07:34)
--- NOTE | 2017-12-08 08:18 | RAD ---
Date of service: 12/08/2017 PROCEDURE: BILATERAL HANDS RADIOGRAPHS HISTORY: joint pain COMPARISON: None available. TECHNIQUE: Three views of each hand submitted for interpretation. FINDINGS: No acute fracture, dislocation or destructive bony lesion identified. There is significant joint space narrowing identified at the right 1st metacarpal phalangeal joint with accompanying cortical sclerosis compatible with osteoarthritis. Remaining joints of the hand appear grossly nonfocal. No subluxation or dislocation. Local soft tissues appear diffusely unremarkable. 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 No acute fracture, dislocation or subluxation throughout both hands. No destructive bony lesion identified.
[2017-12-08 08:50] LABS: BASO # 0.1 K/uL (0.0-0.2); BASO % 0.6 % (0.0-2.0); EOS % 0.2 % (0.0-4.0); HEMOGLOBIN 8.8 g/dL (11.0-16.0); LYMPH % 5.4 % (20.0-40.0); MEAN CELL VOLUME 81.8 fL (81.0-99.0); MEAN CORPUSCULAR HEMOGLOBIN 24.8 pg (27.0-31.0); MEAN CORPUSCULAR HGB CONC 30.3 g/dL (33.0-37.0); MEAN PLATELET VOLUME 6.6 fL (7.2-11.7); MONO # 1.2 K/uL (0.0-0.8); MONO % 6.2 % (0.0-10.0); NEUT # 16.4 K/uL (1.8-7.0); NEUT % 87.6 % (50.0-75.0); NRBC % 11.4 % (0.0-2.0); PLATELET COUNT 422 K/uL (130-400); RBC 3.55 Mil/uL (3.80-5.20); RED CELL DISTRIBUTION WIDTH 31.3 % (11.5-14.5); WHITE BLOOD COUNT 18.7 K/uL (4.8-10.8)
[2017-12-08 09:04] LABS: ALB/GLOB RATIO 1.1 (1.0-2.1); ALBUMIN 3.4 g/dL (3.5-5.0); ALT/SGPT 30 U/L (9-52); AST/SGOT 24 U/L (14-36); BLOOD UREA NITROGEN 9 mg/dL (7-17); CALCIUM 8.8 mg/dl (8.6-10.4); GFR NON-AFRICAN AMERICAN > 60
[2017-12-08 09:41] LABS: LYMPHOCYTE 10 % (20-40); MONOCYTE 4 % (0-10); NEUTROPHIL 86 % (50-75); NUCLEATED RED BLOOD CELL 15 % (0-0); PLATELET ESTIMATE NORMAL (NORMAL); TOTAL CELLS COUNTED 100
[2017-12-08 09:43] LABS: ANISOCYTOSIS MARKED; HYPOCHROMIC SLIGHT; MICROCYTOSIS SLIGHT; OVALOCYTES SLIGHT; POIKILOCYTOSIS SLIGHT; POLYCHROMIC SLIGHT; TARGET CELLS SLIGHT; TEARDROP CELLS SLIGHT
[2017-12-08 09:44] LABS: SCHISTOCYTES SLIGHT; SPHEROCYTES SLIGHT
[2017-12-08] MEDS: MethylPREDNISolone 40 mg Vial IV SCH ×2 (09:53→21:20)
[2017-12-08] MEDS: Prenatal Multivit/Folic Acid/Iron Tab PO SCH (09:54)
[2017-12-08] MEDS: Lactobacillus Acidophilus 500 MU Cap PO SCH ×2 (09:54→17:42)
[2017-12-08] MEDS: LEFLUNOMIDE 20 MG PO SCH (09:56)
--- NOTE | 2017-12-08 11:49 | CP.PCM.PN ---
Subjective - Date & Time of Evaluation Date of Evaluation: 12/08/17 Time of Evaluation: 11:49 - Subjective Subjective: Pulmonary Follow up, Covering Dr Veliz The patient was Seen/interviewed and examined by me at the bedside, Medical records reviewed and Management issues were discussed and formulated with the house staff. Events reviewed S/P bronchoscopy/bronchoalveolar lavage and brushing Comfortable, NAD Pain controlled Coughing up blood tinged sputum No chest pain or shortness of breath Objective - Vital Signs/Intake and Output Vital Signs (last 24 hours): Temp Pulse Resp BP Pulse Ox 98.2 F 95 H 20 111/74 92 L 12/08/17 07:59 12/08/17 07:59 12/08/17 07:59 12/08/17 07:59 12/08/17 07:59 Intake and Output: 12/08/17 12/08/17 06:59 18:59 Intake Total 410 Balance 410 - Medications Medications: Current Medications Apixaban (Eliquis) 5 mg PO BID [facility] Last Admin: 12/08/17 09:52 Dose: 5 mg Diphenhydramine HCl (Benadryl) 25 mg IVP Q4H PRN PRN Reason: Itching / Pruritus Last Admin: 12/08/17 10:36 Dose: 25 mg Epoetin Alonzo (Procrit) 10,000 unit SC MWF [facility] Last Admin: 12/06/17 09:16 Dose: 10,000 unit Famotidine (Pepcid) 20 mg PO DAILY [facility] Last Admin: 12/08/17 09:53 Dose: 20 mg Fluticasone/Vilanterol (Breo Ellipta 100-25 Mcg Inh) 1 puff INH RQ24 [facility] Folic Acid (Folic Acid) 1 mg PO DAILY [facility] Last Admin: 12/08/17 09:53 Dose: 1 mg Gabapentin (Neurontin) 300 mg PO TID [facility] Last Admin: 12/08/17 09:52 Dose: 300 mg Home Med (Patient's Own Medication) 1 tab PO DAILY [facility] Last Admin: 12/08/17 09:56 Dose: 1 tab Ferric Sodium Gluconate Complex 125 mg/ Sodium Chloride 110 mls @ 105 mls/hr IVPB Q24H [facility] Stop: 12/12/17 18:31 Last Admin: 12/07/17 19:07 Dose: 105 mls/hr Lactobacillus Acidophilus (Bacid Acidophilus) 1 cap PO BID [facility] Last Admin: 12/08/17 09:54 Dose: 1 cap Loratadine (Claritin) 10 mg PO DAILY [facility] Last Admin: 12/08/17 09:53 Dose: 10 mg Methylprednisolone (Solu-Medrol) 40 mg IV Q12H [facility] Last Admin: 12/08/17 09:53 Dose: 40 mg Montelukast Sodium (Singulair) 10 mg PO DAILY [facility] Last Admin: 12/08/17 09:53 Dose: 10 mg Morphine Sulfate (Morphine) 2 mg IVP Q4 PRN Last Admin: 12/08/17 10:36 Dose: 2 mg Nitrofurantoin Macrocrystals (Macrobid) 100 mg PO Q12H [facility]; Protocol Stop: 12/16/17 14:01 Last Admin: 12/08/17 02:33 Dose: 100 mg Olanzapine (Zyprexa) 5 mg PO DAILY [facility] Last Admin: 12/08/17 09:55 Dose: 5 mg Potassium Chloride (K-Dur 20 Meq Er Tab) 40 meq PO DAILY@0800 [facility] Last Admin: 12/08/17 07:34 Dose: 40 meq Multivit/Folic Acid/Iron () 1 tab PO DAILY [facility] Last Admin: 12/08/17 09:54 Dose: 1 tab Sennosides (Senokot Tab) 8.6 mg PO DAILY [facility] Last Admin: 12/08/17 09:55 Dose: 8.6 mg - Labs Labs: 12/08/17 08:36 12/08/17 08:36 PT 11.2 SECONDS (9.7-12.2) 12/02/17 16:42 INR 1.0 12/02/17 16:42 APTT 30 SECONDS (21-34) 12/02/17 16:42 - Constitutional Appears: Well, Non-toxic, No Acute Distress - Eye Exam Eye Exam: absent: Conjunctival injection - Neck Exam Neck Exam: Full ROM - Respiratory Exam Respiratory Exam: Rhonchi. absent: Accessory Muscle Use, Chest Wall Tenderness, Wheezes - Cardiovascular Exam Cardiovascular Exam: REGULAR RHYTHM, RRR, +S1, +S2. absent: JVD - GI/Abdominal Exam GI & Abdominal Exam: Normal Bowel Sounds - Extremities Exam Extremities Exam: Full ROM, Normal Inspection. absent: Calf Tenderness, Pedal Edema - Neurological Exam Neurological Exam: Alert, Awake, Oriented x3 Assessment and Plan (1) SOB (shortness of breath) Status: Chronic (2) Arthritis, rheumatoid Status: Chronic (3) Asthma exacerbation Status: Chronic - Assessment and Plan (Free Text) Assessment: Continue current management, Continue IV solumedrol Continue PRN nebulizer treatment. Continue Singulair Follow Bronch with BAL and brushing results
--- NOTE | 2017-12-08 14:39 | CP.PCM.PN ---
Subjective - Date & Time of Evaluation Date of Evaluation: 12/08/17 Time of Evaluation: 08:00 - Subjective Subjective: clinically same Objective - Vital Signs/Intake and Output Vital Signs (last 24 hours): Temp Pulse Resp BP Pulse Ox 98.2 F 95 H 20 111/74 92 L 12/08/17 07:59 12/08/17 07:59 12/08/17 07:59 12/08/17 07:59 12/08/17 07:59 Intake and Output: 12/08/17 12/08/17 06:59 18:59 Intake Total 410 Balance 410 - Medications Medications: Current Medications Apixaban (Eliquis) 5 mg PO BID [facility] Last Admin: 12/08/17 09:52 Dose: 5 mg Diphenhydramine HCl (Benadryl) 25 mg IVP Q4H PRN PRN Reason: Itching / Pruritus Last Admin: 12/08/17 10:36 Dose: 25 mg Epoetin Alonzo (Procrit) 10,000 unit SC MWF [facility] Last Admin: 12/06/17 09:16 Dose: 10,000 unit Famotidine (Pepcid) 20 mg PO DAILY [facility] Last Admin: 12/08/17 09:53 Dose: 20 mg Fluticasone/Vilanterol (Breo Ellipta 100-25 Mcg Inh) 1 puff INH RQ24 [facility] Folic Acid (Folic Acid) 1 mg PO DAILY [facility] Last Admin: 12/08/17 09:53 Dose: 1 mg Gabapentin (Neurontin) 300 mg PO TID [facility] Last Admin: 12/08/17 13:35 Dose: 300 mg Home Med (Patient's Own Medication) 1 tab PO DAILY [facility] Last Admin: 12/08/17 09:56 Dose: 1 tab Ferric Sodium Gluconate Complex 125 mg/ Sodium Chloride 110 mls @ 105 mls/hr IVPB Q24H [facility] Stop: 12/12/17 18:31 Last Admin: 12/07/17 19:07 Dose: 105 mls/hr Lactobacillus Acidophilus (Bacid Acidophilus) 1 cap PO BID [facility] Last Admin: 12/08/17 09:54 Dose: 1 cap Loratadine (Claritin) 10 mg PO DAILY [facility] Last Admin: 12/08/17 09:53 Dose: 10 mg Methylprednisolone (Solu-Medrol) 40 mg IV Q12H [facility] Last Admin: 12/08/17 09:53 Dose: 40 mg Montelukast Sodium (Singulair) 10 mg PO DAILY [facility] Last Admin: 12/08/17 09:53 Dose: 10 mg Morphine Sulfate (Morphine) 2 mg IVP Q4 PRN Last Admin: 12/08/17 10:36 Dose: 2 mg Nitrofurantoin Macrocrystals (Macrobid) 100 mg PO Q12H [facility]; Protocol Stop: 12/16/17 14:01 Last Admin: 12/08/17 13:35 Dose: 100 mg Olanzapine (Zyprexa) 5 mg PO DAILY [facility] Last Admin: 12/08/17 09:55 Dose: 5 mg Potassium Chloride (K-Dur 20 Meq Er Tab) 40 meq PO DAILY@0800 [facility] Last Admin: 12/08/17 07:34 Dose: 40 meq Multivit/Folic Acid/Iron () 1 tab PO DAILY [facility] Last Admin: 12/08/17 09:54 Dose: 1 tab Sennosides (Senokot Tab) 8.6 mg PO DAILY [facility] Last Admin: 12/08/17 09:55 Dose: 8.6 mg - Labs Labs: 12/08/17 08:36 12/08/17 08:36 PT 11.2 SECONDS (9.7-12.2) 12/02/17 16:42 INR 1.0 12/02/17 16:42 APTT 30 SECONDS (21-34) 12/02/17 16:42 - Constitutional Appears: Well - Head Exam Head Exam: ATRAUMATIC, NORMAL INSPECTION, NORMOCEPHALIC - Eye Exam Eye Exam: EOMI, Normal appearance, PERRL Pupil Exam: NORMAL ACCOMODATION, PERRL - ENT Exam ENT Exam: Mucous Membranes Moist, Normal Exam - Neck Exam Neck Exam: Full ROM, Normal Inspection. absent: Lymphadenopathy - Respiratory Exam Respiratory Exam: Decreased Breath Sounds - Cardiovascular Exam Cardiovascular Exam: REGULAR RHYTHM, +S1, +S2 - GI/Abdominal Exam GI & Abdominal Exam: Soft, Diminished Bowel Sounds - Rectal Exam Rectal Exam: Deferred
--- NOTE | 2017-12-08 17:41 | CP.PCM.PN ---
Subjective - Date & Time of Evaluation Date of Evaluation: 12/08/17 Time of Evaluation: 08:00 - Subjective Subjective: AFB neg x 1 await bronch results Objective - Vital Signs/Intake and Output Vital Signs (last 24 hours): Temp Pulse Resp BP Pulse Ox 98.2 F 101 H 21 100/63 94 L 12/08/17 16:00 12/08/17 16:00 12/08/17 16:00 12/08/17 16:00 12/08/17 16:00 Intake and Output: 12/08/17 12/08/17 06:59 18:59 Intake Total 410 Balance 410 - Medications Medications: Current Medications Apixaban (Eliquis) 5 mg PO BID [facility] Last Admin: 12/08/17 09:52 Dose: 5 mg Diphenhydramine HCl (Benadryl) 25 mg IVP Q4H PRN PRN Reason: Itching / Pruritus Last Admin: 12/08/17 15:13 Dose: 25 mg Epoetin Alonzo (Procrit) 10,000 unit SC MWF [facility] Last Admin: 12/06/17 09:16 Dose: 10,000 unit Famotidine (Pepcid) 20 mg PO DAILY [facility] Last Admin: 12/08/17 09:53 Dose: 20 mg Fluticasone/Vilanterol (Breo Ellipta 100-25 Mcg Inh) 1 puff INH RQ24 [facility] Folic Acid (Folic Acid) 1 mg PO DAILY [facility] Last Admin: 12/08/17 09:53 Dose: 1 mg Gabapentin (Neurontin) 300 mg PO TID [facility] Last Admin: 12/08/17 13:35 Dose: 300 mg Home Med (Patient's Own Medication) 1 tab PO DAILY [facility] Last Admin: 12/08/17 09:56 Dose: 1 tab Ferric Sodium Gluconate Complex 125 mg/ Sodium Chloride 110 mls @ 105 mls/hr IVPB Q24H [facility] Stop: 12/12/17 18:31 Last Admin: 12/07/17 19:07 Dose: 105 mls/hr Lactobacillus Acidophilus (Bacid Acidophilus) 1 cap PO BID [facility] Last Admin: 12/08/17 09:54 Dose: 1 cap Loratadine (Claritin) 10 mg PO DAILY [facility] Last Admin: 12/08/17 09:53 Dose: 10 mg Methylprednisolone (Solu-Medrol) 40 mg IV Q12H [facility] Last Admin: 12/08/17 09:53 Dose: 40 mg Montelukast Sodium (Singulair) 10 mg PO DAILY [facility] Last Admin: 12/08/17 09:53 Dose: 10 mg Morphine Sulfate (Morphine) 2 mg IVP Q4 PRN Last Admin: 12/08/17 15:14 Dose: 2 mg Nitrofurantoin Macrocrystals (Macrobid) 100 mg PO Q12H [facility]; Protocol Stop: 12/16/17 14:01 Last Admin: 12/08/17 13:35 Dose: 100 mg Olanzapine (Zyprexa) 5 mg PO DAILY [facility] Last Admin: 12/08/17 09:55 Dose: 5 mg Potassium Chloride (K-Dur 20 Meq Er Tab) 40 meq PO DAILY@0800 [facility] Last Admin: 12/08/17 07:34 Dose: 40 meq Multivit/Folic Acid/Iron () 1 tab PO DAILY [facility] Last Admin: 12/08/17 09:54 Dose: 1 tab Sennosides (Senokot Tab) 8.6 mg PO DAILY [facility] Last Admin: 12/08/17 09:55 Dose: 8.6 mg - Labs Labs: 12/08/17 08:36 12/08/17 08:36 PT 11.2 SECONDS (9.7-12.2) 12/02/17 16:42 INR 1.0 12/02/17 16:42 APTT 30 SECONDS (21-34) 12/02/17 16:42 - Constitutional Appears: Chronically Ill - Head Exam Head Exam: NORMOCEPHALIC - Eye Exam Eye Exam: PERRL - ENT Exam ENT Exam: Mucous Membranes Dry - Neck Exam Neck Exam: Normal Inspection - Respiratory Exam Respiratory Exam: Decreased Breath Sounds, Prolonged Expiratory Phase, Rhonchi - Cardiovascular Exam Cardiovascular Exam: REGULAR RHYTHM - GI/Abdominal Exam GI & Abdominal Exam: Distended, Soft Assessment and Plan (1) Chest pain Status: Chronic (2) SOB (shortness of breath) Status: Chronic (3) Arthritis, rheumatoid Status: Chronic (4) Asthma Status: Chronic
[2017-12-08] MEDS: Ferric Sodium Gluconat Complex 125 MG in Sodium Chloride 0.9% 100 ML IVPB SCH (18:06)
[2017-12-09] MEDS: DiphenhydrAMINE 50 mg/ml Inj IVP PRN ×6 (00:42→22:03)
[2017-12-09 00:47] VITALS: RESP 20
[2017-12-09 06:50] LABS: ALB/GLOB RATIO 1.1 (1.0-2.1); ALBUMIN 3.3 g/dL (3.5-5.0); ALT/SGPT 52 U/L (9-52); AST/SGOT 59 U/L (14-36); BLOOD UREA NITROGEN 6 mg/dL (7-17); CALCIUM 8.5 mg/dl (8.6-10.4); GFR NON-AFRICAN AMERICAN > 60
--- NOTE | 2017-12-09 08:28 | CARD ---
APPROVED REPORT Date of service: 12/02/2017 EKG Measurement Heart [id number] <Conclusion> Normal sinus rhythm Normal ECG
[2017-12-09] MEDS: Potassium Chloride 20 mEq ER Tab PO SCH (09:00)
[2017-12-09] MEDS: Lactobacillus Acidophilus 500 MU Cap PO SCH ×2 (09:38→17:56)
[2017-12-09] MEDS: LEFLUNOMIDE 20 MG PO SCH (09:38)
[2017-12-09] MEDS: Prenatal Multivit/Folic Acid/Iron Tab PO SCH (09:39)
[2017-12-09] MEDS: MethylPREDNISolone 40 mg Vial IV SCH ×2 (09:50→13:18)
[2017-12-09] MEDS: EPOETIN ALFA 10,000 UNIT/ML ML SC SCH (09:50)
[2017-12-09] MEDS ORDERED: Meropenem 1 GM in Sodium Chloride 0.9% 100 ML IVPB SCH (11:00)
[2017-12-09 11:16] LABS: HEMOGLOBIN 8.8 g/dL (11.0-16.0); MEAN CORPUSCULAR HGB CONC 31.3 g/dL (33.0-37.0); WHITE BLOOD COUNT 18.4 K/uL (4.8-10.8)
--- NOTE | 2017-12-09 11:49 | PROCN ---
PROCEDURE DATE: 12/07/2017 PROCEDURE: Fiberoptic bronchoscopy, bronchoalveolar lavage, possible brushing. INDICATION: Bilateral infiltrate, rule out opportunistic infection. DESCRIPTION OF PROCEDURE: Fiberoptic bronchoscopy was done after obtaining consent from patient. Explaining patient the risks and benefits including bleeding, possible pneumothorax, which she understood. Procedure was done after the patient was intubated by anesthesiologist. The bronchoscope was passed through the endotracheal tube into the trachea. Minimal amount of grayish secretions noted passed on the left side, left main, the left upper and the left lower. No endobronchial lesion seen. Mucosa was hyperemic in the left lower lobe. bronchoscope is pulled back and passed to the right side, the right main, the right upper bronchus intermedius, right middle, right lower lobe. No endobronchial lesion seen. Small amount of grayish secretions noted and the mucosa was hyperemic in the right lower lobe. Bronchoalveolar lavage was done, the right lower lobe one of the small lower segments. Also under direct visualization, brushing was done, one of the superficial bronchus. Patient tolerated the procedure well. No bleeding noted. Chest x-ray reviewed, showed no pneumothorax. Cj Veliz MD
[2017-12-09 11:50] LABS: MEAN CELL VOLUME 82.2 fL (81.0-99.0); MEAN CORPUSCULAR HEMOGLOBIN 25.7 pg (27.0-31.0); MEAN PLATELET VOLUME 6.8 fL (7.2-11.7); PLATELET COUNT 374 K/uL (130-400); RBC 3.42 Mil/uL (3.80-5.20); RED CELL DISTRIBUTION WIDTH 31.7 % (11.5-14.5)
[2017-12-09] MEDS ORDERED: SODIUM CHLORIDE 0.9% IVPB ONE (12:00)
[2017-12-09] MEDS ORDERED: MEROPENEM IVPB ONE (12:00)
[2017-12-09 12:57] LABS: LYMPH # 1.7 K/uL (1.0-4.3); MONO # 0.7 K/uL (0.0-0.8)
[2017-12-09 12:58] LABS: LYMPHOCYTE 9 % (20-40); MONOCYTE 4 % (0-10); NEUTROPHIL 87 % (50-75); NUCLEATED RED BLOOD CELL 3 % (0-0); PLATELET ESTIMATE NORMAL (NORMAL); TOTAL CELLS COUNTED 100
[2017-12-09 12:59] LABS: ANISOCYTOSIS MARKED; HYPOCHROMIC SLIGHT; POLYCHROMIC SLIGHT; TARGET CELLS SLIGHT
[2017-12-09 13:00] LABS: MICROCYTOSIS SLIGHT; OVALOCYTES SLIGHT
--- NOTE | 2017-12-09 13:18 | CP.PCM.PN ---
Subjective - Date & Time of Evaluation Date of Evaluation: 12/09/17 Time of Evaluation: 08:25 - Subjective Subjective: Patient seen and examined at bedside. No overnight events reported. Patients states that overall she feels "worse". She still complains of generalized internal body pain and shortness of breath. She denies any palpitations or any changes in bowel habits/urinary symptoms. Objective - Vital Signs/Intake and Output Vital Signs (last 24 hours): Temp Pulse Resp BP Pulse Ox 97.8 F 60 20 131/80 95 12/09/17 07:44 12/09/17 07:44 12/09/17 07:44 12/09/17 07:44 12/09/17 07:44 Intake and Output: 12/09/17 12/09/17 06:59 18:59 Intake Total 750 Balance 750 - Medications Medications: Current Medications Apixaban (Eliquis) 5 mg PO BID [facility] [place] Last Admin: 12/09/17 09:36 Dose: 5 mg Diphenhydramine HCl (Benadryl) 25 mg IVP Q4H PRN PRN Reason: Itching / Pruritus Last Admin: 12/09/17 09:40 Dose: 25 mg Epoetin Alonzo (Procrit) 10,000 unit SC MWF [facility] Last Admin: 12/09/17 09:50 Dose: 10,000 unit Famotidine (Pepcid) 20 mg PO DAILY [facility] [place] Last Admin: 12/09/17 09:39 Dose: 20 mg Fluticasone/Vilanterol (Breo Ellipta 100-25 Mcg Inh) 1 puff INH RQ24 [facility] [place] Folic Acid (Folic Acid) 1 mg PO DAILY [facility] [place] Last Admin: 12/09/17 09:36 Dose: 1 mg Gabapentin (Neurontin) 300 mg PO TID [facility] [place] Last Admin: 12/09/17 09:36 Dose: 300 mg Home Med (Patient's Own Medication) 1 tab PO DAILY [facility] [place] Last Admin: 12/09/17 09:38 Dose: 1 tab Ferric Sodium Gluconate Complex 125 mg/ Sodium Chloride 110 mls @ 105 mls/hr IVPB Q24H [facility] [place] Stop: 12/12/17 18:31 Last Admin: 12/08/17 18:06 Dose: 105 mls/hr Meropenem 1 gm/ Sodium (Chloride) 100 mls @ 100 mls/hr IVPB Q8H [facility] [place]; Protocol Last Admin: 12/09/17 12:01 Dose: Not Given Lactobacillus Acidophilus (Bacid Acidophilus) 1 cap PO BID [facility] [place] Last Admin: 12/09/17 09:38 Dose: 1 cap Loratadine (Claritin) 10 mg PO DAILY [facility] [place] Last Admin: 12/09/17 09:36 Dose: 10 mg Methylprednisolone (Solu-Medrol) 20 mg IV Q12H [facility] [place] Montelukast Sodium (Singulair) 10 mg PO DAILY [facility] [place] Last Admin: 12/09/17 09:36 Dose: 10 mg Olanzapine (Zyprexa) 5 mg PO DAILY [facility] [place] Last Admin: 12/09/17 09:41 Dose: 5 mg Potassium Chloride (K-Dur 20 Meq Er Tab) 40 meq PO DAILY@0800 [facility] [place] Last Admin: 12/09/17 09:00 Dose: 40 meq Multivit/Folic Acid/Iron () 1 tab PO DAILY [facility] [place] Last Admin: 12/09/17 09:39 Dose: 1 tab Sennosides (Senokot Tab) 8.6 mg PO DAILY [facility] [place] Last Admin: 12/09/17 09:36 Dose: 8.6 mg - Labs Labs: 12/09/17 10:56 12/09/17 06:20 PT 11.2 SECONDS (9.7-12.2) 12/02/17 16:42 INR 1.0 12/02/17 16:42 APTT 30 SECONDS (21-34) 12/02/17 16:42 - Additional Findings Additional findings: - Constitutional Appears: Non-toxic, No Acute Distress - Head Exam Head Exam: ATRAUMATIC, NORMAL INSPECTION, NORMOCEPHALIC - Eye Exam Eye Exam: EOMI. absent: Scleral icterus - ENT Exam ENT Exam: Mucous Membranes Moist - Neck Exam Neck Exam: Normal Inspection - Respiratory Exam Respiratory Exam: Chest Wall Tenderness, Rales, Wheezes, NORMAL BREATHING PATTERN. absent: Accessory Muscle Use, Clear to Ausculation Bilateral, Rhonchi, Respiratory Distress, Stridor - Cardiovascular Exam Cardiovascular Exam: RRR, +S1, +S2 - GI/Abdominal Exam GI & Abdominal Exam: Soft, Tenderness (Diffuse), Normal Bowel Sounds - Extremities Exam Extremities Exam: Normal Capillary Refill. absent: Pedal Edema - Back Exam Back Exam: CVA tenderness (L), CVA tenderness (R), paraspinal tenderness - Neurological Exam Neurological Exam: Alert, Awake, Oriented x3 - Psychiatric Exam Psychiatric exam: Normal Affect. absent: Normal Mood - Skin Skin Exam: Rash (Upper Extremities. ) Assessment and Plan - Assessment and Plan (Free Text) Assessment: 32 year old female with a PMHx of Fibromyalgia, Subclavian DVT, Asthma, Rheumatoid Arthritis, Pneumonia admitted for evaluation and treatment of intractable pain and abnormal lung imaging. Chest CT on admission showed " Increasing nodular interstitial infiltrate involving bilateral mid to lower lung zones and to a lesser extent involvement of the upper lobes. Appearance remains concerning for opportunistic infection. No pleural effusion. No pneumothorax. No large central or segmental pulmonary embolus evident." CXR on admission showed "Trace left pleural effusion costophrenic angle and/or chronic pleural thickening here, no change since 2016. No interval increasing pleural effusion or pneumothorax seen. " Plan: Interstitial Lung Disease/SOB/Cough S/P Bronchoscopy on 12/07 CXR (12/07): Trace linear atelectasis inferior left lung zone laterally. No airspace disease identified bilaterally otherwise. No pleural effusion, pneumothorax or acute cardiovascular changes identified. Viral vs Autoimmune etiology Pulmonology Consulted (Dr. Veliz) Rheumatology Consul (Dr. Nichols) Chest CT 12/02 - Increasing nodular interstitial infiltrate involving bilateral mid to lower lung zones and to a lesser extent involvement of the upper lobes. Appearance remains concerning for opportunistic infection. No pleural effusion. No pneumothorax. No large central or segmental pulmonary embolus evident. Chest Xray 12/03 - Trace left pleural effusion costophrenic angle and/or chronic pleural thickening here, no change since 2016. No interval increasing pleural effusion or pneumothorax seen. Autoimmune Workup (Significant findings): IgG - 482.4 (Low) CCP 117 (HIGH) HOT BLASTER, DsDNA, Phosphatidlyserine, Anti-Cardiolipin, Antiphospholipid - NEGATIVE CD 3/4/8 - NEGATIVE SHANTELL 6 - NEGATIVE ASO - NEGATIVE Rh - Positive AFB Sputum Cultures-NEGATIVE x3, Mycoplasma-NEGATIVE, Qant Gold-PENDING Sputum Culture/Bronchial Washings (12/07/17): POSITIVE FOR E.COLI Isolation PICC Line Meds: Meropenem 1gram Q8H (Will give 1 dose and check vitals q15 to check for reaction) Mucinex DM PRN. Rheumatoid Arthritis/Intractable Pain Rheumatology Consult (Dr. 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 No acute fracture, dislocation or subluxation throughout both hands. No destructive bony lesion identified. Meds: Hydrocychloroquine 200mg BID Leflunomide 20mg PO Daily SulfaSalazine 1500mg BP BID Morphine 2 Q4 PRN tizanidine 4mg PO BID Gabapentin 300mg PO TID UTI Urine Culture (12/03/17): Positive for E.Coli. Meds: DC'd Nitrofuratoin 100 BID on 12/06/17. (Day 4 of 10) Start Meropenem 1gram Q8H Asthma ABG (12/04/17): 7,51/38/89/30.3 Meds: Montelukast 10mg PO Daily DuoNebs RQ6H PRN Solumedrol 20mg IV Q12H to be tapered Iron Def. Anemia (Improving) HgB - 8.8 today, Cont. to monitor. Anemia Workup Ordered Type and Cross Match, Transfuse for HgB < 7 Meds: Ferrlecit 125mg IVP FDAI Epoetin Alonzo 40,000 Unit IV MWF Hx of Subclavian DVT Meds: Eliquis 5 PO BID Pruritus/Rash Meds: PRN Benadryl Proph Pepcid Folate, Multivitamins Lactobacillus Acidophilus Lovenox K-dur 20 meq Daily Dispo: Will DC on Meropenem if she tolerates. Patient will need PICC Line if going home on meropenem. Will F/U with ID for length of antiobiotic treatment. She will need to follow up with her PMD, her Spray Gun Sizer and Plodding Operator (Dr. Veliz). Patient discussed with Dr. Lilli Cruz, PGY-2
[2017-12-09] MEDS: guaiFENesin DM 200 mg-20 mg/10 ml UD PO PRN (14:46)
--- NOTE | 2017-12-09 15:51 | CP.PCM.PN ---
Subjective - Date & Time of Evaluation Date of Evaluation: 12/09/17 Time of Evaluation: 08:00 - Subjective Subjective: Patient was seen and examined at bedside, lying down comfortably. Afebrile and in no acute distress. States cough is persistent with spots of blood; also states SOB is worse, feeling "winded" at times. Complains of chest rightness. S/p bronchoscopy (12/07): -Washing: bronchial culture-ESBL E.coli (sensitive to ertapenem, gentamicin, meropenem, pip/tazo); gram stain-moderate polymorphonuclear WBCs, moderate GN rods?; AFB stain negative (culture pending); no Pneumocystis carinii seen Plan: -Started meropenem 500mg Objective - Vital Signs/Intake and Output Vital Signs (last 24 hours): Temp Pulse Resp BP Pulse Ox 98.9 F 107 H 20 107/74 95 12/09/17 15:30 12/09/17 15:30 12/09/17 15:30 12/09/17 15:30 12/09/17 15:30 Intake and Output: 12/09/17 12/09/17 06:59 18:59 Intake Total 750 Balance 750 - Medications Medications: Current Medications Apixaban (Eliquis) 5 mg PO BID [facility] Last Admin: 12/09/17 09:36 Dose: 5 mg Diphenhydramine HCl (Benadryl) 25 mg IVP Q4H PRN PRN Reason: Itching / Pruritus Last Admin: 12/09/17 14:03 Dose: 25 mg Epoetin Alonzo (Procrit) 10,000 unit SC MWF [facility] Last Admin: 12/09/17 09:50 Dose: 10,000 unit Famotidine (Pepcid) 20 mg PO DAILY [facility] Last Admin: 12/09/17 09:39 Dose: 20 mg Fluticasone/Vilanterol (Breo Ellipta 100-25 Mcg Inh) 1 puff INH RQ24 [facility] Folic Acid (Folic Acid) 1 mg PO DAILY [facility] Last Admin: 12/09/17 09:36 Dose: 1 mg Gabapentin (Neurontin) 300 mg PO TID [facility] Last Admin: 12/09/17 14:03 Dose: 300 mg Guaifenesin/Dextromethorphan (Robitussin Dm) 10 ml PO Q4H PRN PRN Reason: Cough and congestion Last Admin: 10/29/18 14:46 Dose: 10 ml Home Med (Patient's Own Medication) 1 tab PO DAILY [facility] Last Admin: 12/09/17 09:38 Dose: 1 tab Ferric Sodium Gluconate Complex 125 mg/ Sodium Chloride 110 mls @ 105 mls/hr IVPB Q24H [facility] Stop: 12/12/17 18:31 Last Admin: 12/08/17 18:06 Dose: 105 mls/hr Meropenem 1 gm/ Sodium (Chloride) 100 mls @ 100 mls/hr IVPB Q8H [facility]; Protocol Lactobacillus Acidophilus (Bacid Acidophilus) 1 cap PO BID [facility] Last Admin: 12/09/17 09:38 Dose: 1 cap Methylprednisolone (Solu-Medrol) 20 mg IV Q12H [facility] Last Admin: 12/09/17 13:18 Dose: 20 mg Montelukast Sodium (Singulair) 10 mg PO DAILY [facility] Last Admin: 12/09/17 09:36 Dose: 10 mg Morphine Sulfate (Morphine) 1 mg IVP Q4 PRN PRN Reason: Pain, severe (8-10) Last Admin: 12/09/17 14:03 Dose: 1 mg Olanzapine (Zyprexa) 5 mg PO DAILY [facility] Last Admin: 12/09/17 09:41 Dose: 5 mg Potassium Chloride (K-Dur 20 Meq Er Tab) 40 meq PO DAILY@0800 [facility] Last Admin: 12/09/17 09:00 Dose: 40 meq Multivit/Folic Acid/Iron () 1 tab PO DAILY [facility] Last Admin: 12/09/17 09:39 Dose: 1 tab Sennosides (Senokot Tab) 8.6 mg PO DAILY [facility] Last Admin: 12/09/17 09:36 Dose: 8.6 mg - Labs Labs: 12/09/17 10:56 12/09/17 06:20 PT 11.2 SECONDS (9.7-12.2) 12/02/17 16:42 INR 1.0 12/02/17 16:42 APTT 30 SECONDS (21-34) 12/02/17 16:42 Assessment and Plan (1) Asthma exacerbation Status: Chronic (2) Arthritis, rheumatoid Status: Chronic (3) DVT (deep venous thrombosis) Status: Acute (4) Anemia Status: Chronic
--- NOTE | 2017-12-09 17:35 | CP.PCM.PN ---
Subjective - Date & Time of Evaluation Date of Evaluation: 12/09/17 Time of Evaluation: 08:45 - Subjective Subjective: clinically same Objective - Vital Signs/Intake and Output Vital Signs (last 24 hours): Temp Pulse Resp BP Pulse Ox 98.9 F 107 H 20 107/74 95 12/09/17 15:30 12/09/17 15:30 12/09/17 15:30 12/09/17 15:30 12/09/17 15:30 Intake and Output: 12/09/17 12/09/17 06:59 18:59 Intake Total 750 530 Balance 750 530 - Medications Medications: Current Medications Apixaban (Eliquis) 5 mg PO BID [facility] Last Admin: 12/09/17 09:36 Dose: 5 mg Diphenhydramine HCl (Benadryl) 25 mg IVP Q4H PRN PRN Reason: Itching / Pruritus Last Admin: 12/09/17 14:03 Dose: 25 mg Epoetin Alonzo (Procrit) 10,000 unit SC MWF [facility] Last Admin: 12/09/17 09:50 Dose: 10,000 unit Famotidine (Pepcid) 20 mg PO DAILY [facility] Last Admin: 12/09/17 09:39 Dose: 20 mg Fluticasone/Vilanterol (Breo Ellipta 100-25 Mcg Inh) 1 puff INH RQ24 [facility] Folic Acid (Folic Acid) 1 mg PO DAILY [facility] Last Admin: 12/09/17 09:36 Dose: 1 mg Gabapentin (Neurontin) 300 mg PO TID [facility] Last Admin: 12/09/17 14:03 Dose: 300 mg Guaifenesin/Dextromethorphan (Robitussin Dm) 10 ml PO Q4H PRN PRN Reason: Cough and congestion Last Admin: 12/09/17 14:46 Dose: 10 ml Home Med (Patient's Own Medication) 1 tab PO DAILY [facility] Last Admin: 12/09/17 09:38 Dose: 1 tab Ferric Sodium Gluconate Complex 125 mg/ Sodium Chloride 110 mls @ 105 mls/hr IVPB Q24H [facility] Stop: 12/12/17 18:31 Last Admin: 12/08/17 18:06 Dose: 105 mls/hr Meropenem 1 gm/ Sodium (Chloride) 100 mls @ 100 mls/hr IVPB Q8H [facility]; Protocol Lactobacillus Acidophilus (Bacid Acidophilus) 1 cap PO BID [facility] Last Admin: 12/09/17 09:38 Dose: 1 cap Methylprednisolone (Solu-Medrol) 20 mg IV Q12H [facility] Last Admin: 12/09/17 13:18 Dose: 20 mg Montelukast Sodium (Singulair) 10 mg PO DAILY [facility] Last Admin: 12/09/17 09:36 Dose: 10 mg Morphine Sulfate (Morphine) 1 mg IVP Q4 PRN PRN Reason: Pain, severe (8-10) Last Admin: 12/09/17 14:03 Dose: 1 mg Olanzapine (Zyprexa) 5 mg PO DAILY [facility] Last Admin: 12/09/17 09:41 Dose: 5 mg Potassium Chloride (K-Dur 20 Meq Er Tab) 40 meq PO DAILY@0800 [facility] Last Admin: 12/09/17 09:00 Dose: 40 meq Multivit/Folic Acid/Iron () 1 tab PO DAILY [facility] Last Admin: 12/09/17 09:39 Dose: 1 tab Sennosides (Senokot Tab) 8.6 mg PO DAILY [facility] Last Admin: 12/09/17 09:36 Dose: 8.6 mg - Labs Labs: 12/09/17 10:56 12/09/17 06:20 PT 11.2 SECONDS (9.7-12.2) 12/02/17 16:42 INR 1.0 12/02/17 16:42 APTT 30 SECONDS (21-34) 12/02/17 16:42
[2017-12-09] MEDS: Ferric Sodium Gluconat Complex 125 MG in Sodium Chloride 0.9% 100 ML IVPB SCH (17:56)
--- NOTE | 2017-12-09 18:36 | CP.PCM.CON ---
History of Present Illness - History of Present Illness History of Present Illness: 32-year-old female admitted because of diffused joint pain in her entire body. patient has been oralia in the past with rheumatoid arthritis, fibromyalgia and a DVT 4 months ago. patient has also undergone left shoulder surgery in the past. Patient suffers from numerous allergies and including various antibiotics and medications used for the treatment of rheumatoid arthritis. They include Humira, Enbrel and Cimzia. She is also tried methotrexate. It was not effect in her case. Laboratory studies reveal elevated sedimentation rate, elevated rheumatoid factors, negative SHANTELL and an FOOD PACKER. Presently patient is taking sulfasalazine and Neurontin. Patient is still in severe pain. Have discussed Rituxan infusion with the patient. I would like her to review the Rituxan literature so that she may understand the benefits and possible side affects of the medications. We will also need clearance from Dr. Moran and Dr. Pinzon before administering the medication. Review of Systems - Constitutional Constitutional: Other (severe joint pain) - EENT Eyes: Dry Eye - Respiratory Respiratory: Dyspnea on Exertion - Musculoskeletal Musculoskeletal: Arthralgias, Joint Swelling - Integumentary Integumentary: Dry Skin - Psychiatric Psychiatric: Depression Past Patient History - Infectious Disease Hx of Infectious Diseases: None - Past Medical History & Family History Past Medical History?: Yes - Past Social History Smoking Status: Never Smoked Chewing Tobacco Use: No Cigar Use: No Alcohol: > 2 Drinks/Day Drugs: Denies - CARDIAC Hx Cardiac Disorders: No - PULMONARY Hx Asthma: Yes - NEUROLOGICAL Hx Neurological Disorder: No - HEENT Hx HEENT Problems: No - RENAL Hx Chronic Kidney Disease: No - ENDOCRINE/METABOLIC Hx Endocrine Disorders: No - HEMATOLOGICAL/ONCOLOGICAL Hx Anemia: Yes (iron transfusions, unknown cause) Hx Human Immunodeficiency Virus (HIV): No - INTEGUMENTARY Hx Dermatological Problems: No - MUSCULOSKELETAL/RHEUMATOLOGICAL Hx Falls: No Hx Rheumatoid Arthritis: Yes - GASTROINTESTINAL Hx Gastrointestinal Disorders: No - GENITOURINARY/GYNECOLOGICAL Hx Genitourinary Disorders: No - PSYCHIATRIC Hx Substance Use: No - SURGICAL HISTORY Hx Surgeries: No Other/Comment: Deviated septum - ANESTHESIA Hx Anesthesia: Yes Hx Anesthesia Reactions: No Meds Allergies/Adverse Reactions: Allergies Allergy/AdvReac Type Severity Reaction Status Date / Time adalimumab [From Humira] Allergy Mild RASH Verified 11/11/17 10:53 azithromycin [From Zithromax] Allergy Mild RASH Verified 11/11/17 10:53 ceftriaxone [From Rocephin] Allergy Mild RASH Verified 11/11/17 10:53 vancomycin Allergy Mild RASH Verified 11/11/17 10:53 pablo Allergy Intermediate ITCHING Uncoded 11/11/17 10:53 rocephin Allergy Intermediate ITCHING Uncoded 11/11/17 10:53 - Medications Medications: Current Medications Apixaban (Eliquis) 5 mg PO BID [facility] Last Admin: 12/09/17 17:56 Dose: 5 mg Diphenhydramine HCl (Benadryl) 25 mg IVP Q4H PRN PRN Reason: Itching / Pruritus Last Admin: 12/09/17 17:57 Dose: 25 mg Epoetin Alonzo (Procrit) 10,000 unit SC MWF [facility] Last Admin: 12/09/17 09:50 Dose: 10,000 unit Famotidine (Pepcid) 20 mg PO DAILY [facility] Last Admin: 12/09/17 09:39 Dose: 20 mg Fluticasone/Vilanterol (Breo Ellipta 100-25 Mcg Inh) 1 puff INH RQ24 [facility] Folic Acid (Folic Acid) 1 mg PO DAILY [facility] Last Admin: 12/09/17 09:36 Dose: 1 mg Gabapentin (Neurontin) 300 mg PO TID [facility] Last Admin: 12/09/17 17:56 Dose: 300 mg Guaifenesin/Dextromethorphan (Robitussin Dm) 10 ml PO Q4H PRN PRN Reason: Cough and congestion Last Admin: 12/09/17 14:46 Dose: 10 ml Home Med (Patient's Own Medication) 1 tab PO DAILY [facility] Last Admin: 12/09/17 09:38 Dose: 1 tab Ferric Sodium Gluconate Complex 125 mg/ Sodium Chloride 110 mls @ 105 mls/hr IVPB Q24H [facility] Stop: 12/12/17 18:31 Last Admin: 12/09/17 17:56 Dose: 105 mls/hr Meropenem 1 gm/ Sodium (Chloride) 100 mls @ 100 mls/hr IVPB Q8H [facility]; Protocol Lactobacillus Acidophilus (Bacid Acidophilus) 1 cap PO BID [facility] Last Admin: 12/09/17 17:56 Dose: 1 cap Methylprednisolone (Solu-Medrol) 20 mg IV Q12H [facility] Last Admin: 12/09/17 13:18 Dose: 20 mg Montelukast Sodium (Singulair) 10 mg PO DAILY [facility] Last Admin: 12/09/17 09:36 Dose: 10 mg Morphine Sulfate (Morphine) 1 mg IVP Q4 PRN PRN Reason: Pain, severe (8-10) Last Admin: 12/09/17 17:58 Dose: 1 mg Olanzapine (Zyprexa) 5 mg PO DAILY [facility] Last Admin: 12/09/17 09:41 Dose: 5 mg Potassium Chloride (K-Dur 20 Meq Er Tab) 40 meq PO DAILY@0800 [facility] Last Admin: 12/09/17 09:00 Dose: 40 meq Multivit/Folic Acid/Iron () 1 tab PO DAILY [facility] Last Admin: 12/09/17 09:39 Dose: 1 tab Sennosides (Senokot Tab) 8.6 mg PO DAILY [facility] Last Admin: 12/09/17 09:36 Dose: 8.6 mg Physical Exam - Constitutional Appears: Chronically Ill - Head Exam Head Exam: ATRAUMATIC - Eye Exam Eye Exam: Normal appearance Pupil Exam: NORMAL ACCOMODATION - ENT Exam ENT Exam: Normal Exam - Neck Exam Neck exam: Positive for: Normal Inspection - Respiratory Exam Respiratory Exam: Decreased Breath Sounds - Cardiovascular Exam Cardiovascular Exam: REGULAR RHYTHM - GI/Abdominal Exam GI & Abdominal Exam: Normal Bowel Sounds - Rectal Exam Rectal Exam: Deferred - Exam External exam: NORMAL EXTERNAL EXAM - Extremities Exam Extremities exam: Positive for: joint swelling - Back Exam Back exam: NORMAL INSPECTION - Neurological Exam Neurological exam: Oriented x3 - Psychiatric Exam Psychiatric exam: Depressed - Skin Skin Exam: Dry Results - Vital Signs Recent Vital Signs: Last Vital Signs Temp 98.9 F 12/09/17 15:30 Pulse 107 H 12/09/17 15:30 Resp 20 12/09/17 15:30 BP 107/74 12/09/17 15:30 Pulse Ox 95 12/09/17 15:30 - Labs Result Diagrams: 12/09/17 10:56 12/09/17 06:20 Labs: Laboratory Results - last 24 hr 12/09/17 12/09/17 12/09/17 06:20 10:56 11:06 WBC 18.4 H RBC 3.42 L Hgb 8.8 L Hct 28.1 L MCV 82.2 MCH 25.7 L MCHC 31.3 L RDW 31.7 H Plt Count 374 MPV 6.8 L Neut % (Auto) 87.0 H Lymph % (Auto) 9.0 L Bleckley % (Auto) 4.0 Eos % (Auto) 0.0 Baso % (Auto) 0.0 Neut # (Auto) 16.0 H Lymph # (Auto) 1.7 Bleckley # (Auto) 0.7 Eos # (Auto) 0.0 Baso # (Auto) 0.0 Neutrophils % (Manual) 87 H Lymphocytes % (Manual) 9 L Monocytes % (Manual) 4 Nucleated RBC % 3 H Platelet Estimate Normal Polychromasia Slight Hypochromasia (manual) Slight Anisocytosis (manual) Marked Microcytosis (manual) Slight Target Cells Slight Ovalocytes Slight Sodium 137 Potassium 4.5 Chloride 102 Carbon Dioxide 27 Anion Gap 13 BUN 6 L Creatinine 0.4 L Est GFR ( Amer) > 60 Est GFR (Non-Af Amer) > 60 Random Glucose 96 Lactic Acid 1.1 Calcium 8.5 L Total Bilirubin 0.4 AST 59 H D ALT 52 D Alkaline Phosphatase 85 Total Protein 6.3 Albumin 3.3 L Globulin 2.9 Albumin/Globulin Ratio 1.1 Assessment & Plan (1) Rheumatoid arthritis flare Status: Acute (2) Fibromyalgia Status: Acute (3) Anemia Status: Chronic
[2017-12-09] MEDS: Meropenem 1 GM in Sodium Chloride 0.9% 100 ML IVPB SCH (20:14)
[2017-12-09] MEDS ORDERED: Aluminum Hydroxide/Magnesium Hydroxide Susp (30 mL) PO PRN (21:16)
--- NOTE | 2017-12-09 22:03 | CP.PCM.PN ---
Subjective - Date & Time of Evaluation Date of Evaluation: 12/09/17 Time of Evaluation: 19:00 - Subjective Subjective: Has more cough and feels weak. Objective - Vital Signs/Intake and Output Vital Signs (last 24 hours): Temp Pulse Resp BP Pulse Ox 98.9 F 107 H 20 107/74 95 12/09/17 15:30 12/09/17 15:30 12/09/17 15:30 12/09/17 15:30 12/09/17 15:30 Intake and Output: 12/09/17 12/10/17 18:59 06:59 Intake Total 530 Balance 530 - Medications Medications: Current Medications Al Hydrox/Mg Hydrox/Simethicone (Maalox 30 Ml) 30 ml PO Q4 PRN PRN Reason: Indigestion / Heartburn Last Admin: 12/09/17 21:36 Dose: 30 ml Apixaban (Eliquis) 5 mg PO BID [facility] Last Admin: 12/09/17 17:56 Dose: 5 mg Diphenhydramine HCl (Benadryl) 25 mg IVP Q4H PRN PRN Reason: Itching / Pruritus Last Admin: 12/09/17 17:57 Dose: 25 mg Epoetin Alonzo (Procrit) 10,000 unit SC MWF [facility] Last Admin: 12/09/17 09:50 Dose: 10,000 unit Famotidine (Pepcid) 20 mg PO DAILY [facility] Last Admin: 12/09/17 09:39 Dose: 20 mg Fluticasone/Vilanterol (Breo Ellipta 100-25 Mcg Inh) 1 puff INH RQ24 [facility] Folic Acid (Folic Acid) 1 mg PO DAILY [facility] Last Admin: 12/09/17 09:36 Dose: 1 mg Gabapentin (Neurontin) 300 mg PO TID [facility] Last Admin: 12/09/17 17:56 Dose: 300 mg Guaifenesin/Dextromethorphan (Robitussin Dm) 10 ml PO Q4H PRN PRN Reason: Cough and congestion Last Admin: 12/09/17 14:46 Dose: 10 ml Home Med (Patient's Own Medication) 1 tab PO DAILY [facility] Last Admin: 12/09/17 09:38 Dose: 1 tab Ferric Sodium Gluconate Complex 125 mg/ Sodium Chloride 110 mls @ 105 mls/hr IVPB Q24H [facility] Stop: 12/12/17 18:31 Last Admin: 12/09/17 17:56 Dose: 105 mls/hr Meropenem 1 gm/ Sodium (Chloride) 100 mls @ 100 mls/hr IVPB Q8H [facility]; Protocol Last Admin: 12/09/17 20:14 Dose: 100 mls/hr Lactobacillus Acidophilus (Bacid Acidophilus) 1 cap PO BID [facility] Last Admin: 12/09/17 17:56 Dose: 1 cap Methylprednisolone (Solu-Medrol) 20 mg IV Q12H [facility] Last Admin: 12/09/17 13:18 Dose: 20 mg Montelukast Sodium (Singulair) 10 mg PO DAILY [facility] Last Admin: 12/09/17 09:36 Dose: 10 mg Morphine Sulfate (Morphine) 1 mg IVP Q4 PRN PRN Reason: Pain, severe (8-10) Last Admin: 12/09/17 17:58 Dose: 1 mg Olanzapine (Zyprexa) 5 mg PO DAILY [facility] Last Admin: 12/09/17 09:41 Dose: 5 mg Potassium Chloride (K-Dur 20 Meq Er Tab) 40 meq PO DAILY@0800 [facility] Last Admin: 12/09/17 09:00 Dose: 40 meq Multivit/Folic Acid/Iron () 1 tab PO DAILY [facility] Last Admin: 12/09/17 09:39 Dose: 1 tab Sennosides (Senokot Tab) 8.6 mg PO DAILY [facility] Last Admin: 12/09/17 09:36 Dose: 8.6 mg - Labs Labs: 12/09/17 10:56 12/09/17 06:20 PT 11.2 SECONDS (9.7-12.2) 12/02/17 16:42 INR 1.0 12/02/17 16:42 APTT 30 SECONDS (21-34) 12/02/17 16:42 - Head Exam Head Exam: ATRAUMATIC - Eye Exam Eye Exam: Normal appearance - ENT Exam ENT Exam: Mucous Membranes Dry - Respiratory Exam Respiratory Exam: NORMAL BREATHING PATTERN - Cardiovascular Exam Cardiovascular Exam: +S1, +S2 - GI/Abdominal Exam GI & Abdominal Exam: Normal Bowel Sounds Assessment and Plan (1) Anemia Assessment & Plan: iron deficiency anemia and chronic disease, s/p Ferrlecit and on Procrit Status: Chronic (2) Leukocytosis Assessment & Plan: on antibiotics Status: Acute (3) DVT (deep venous thrombosis) Assessment & Plan: unprovoked on therapeutic anticoagulation. 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
[2017-12-10] MEDS: MethylPREDNISolone 40 mg Vial IV SCH (00:14)
[2017-12-10] MEDS: Meropenem 1 GM in Sodium Chloride 0.9% 100 ML IVPB SCH ×4 (03:31→20:28)
[2017-12-10] MEDS: DiphenhydrAMINE 50 mg/ml Inj IVP PRN ×5 (03:55→22:30)
[2017-12-10 08:19] LABS: MEAN CELL VOLUME 82.9 fL (81.0-99.0); MEAN CORPUSCULAR HEMOGLOBIN 25.1 pg (27.0-31.0); MEAN CORPUSCULAR HGB CONC 30.3 g/dL (33.0-37.0); MEAN PLATELET VOLUME 6.8 fL (7.2-11.7); RBC 3.59 Mil/uL (3.80-5.20); RED CELL DISTRIBUTION WIDTH 33.7 % (11.5-14.5); WHITE BLOOD COUNT 17.1 K/uL (4.8-10.8)
[2017-12-10] MEDS: Potassium Chloride 20 mEq ER Tab PO SCH (08:27)
[2017-12-10 08:43] LABS: ALB/GLOB RATIO 1.3 (1.0-2.1); ALBUMIN 3.4 g/dL (3.5-5.0); ALT/SGPT 43 U/L (9-52); AST/SGOT 27 U/L (14-36); BLOOD UREA NITROGEN 9 mg/dL (7-17); CALCIUM 8.4 mg/dl (8.6-10.4); GFR NON-AFRICAN AMERICAN > 60
[2017-12-10] MEDS ORDERED: MethylPREDNISolone 40 mg Vial IV SCH ×2 (10:00)
[2017-12-10] MEDS: Prenatal Multivit/Folic Acid/Iron Tab PO SCH (10:17)
[2017-12-10] MEDS: Lactobacillus Acidophilus 500 MU Cap PO SCH ×2 (10:17→17:45)
[2017-12-10] MEDS: LEFLUNOMIDE 20 MG PO SCH (10:18)
[2017-12-10 11:18] LABS: LYMPH # 1.9 K/uL (1.0-4.3); MONO # 0.3 K/uL (0.0-0.8)
--- NOTE | 2017-12-10 13:18 | CP.PCM.PN ---
Subjective - Date & Time of Evaluation Date of Evaluation: 12/10/17 Time of Evaluation: 08:00 - Subjective Subjective: Patient seen an examined at bedside. She tolerated her meropenem. SHe states that she feels the same as yesterday. Still has generalized body pain that is controlled with her pain medication. She still complains of pruritis. She also still complains of mild SOB with a productive cough. Patient denies any fevers, chills, changes in bowel habits or urinary symptoms. Objective - Vital Signs/Intake and Output Vital Signs (last 24 hours): Temp Pulse Resp BP Pulse Ox 97.7 F 88 20 131/88 96 12/10/17 08:00 12/10/17 08:00 12/10/17 08:00 12/10/17 08:00 12/10/17 08:00 Intake and Output: 12/10/17 12/10/17 06:59 18:59 Intake Total 560 540 Balance 560 540 - Medications Medications: Current Medications Al Hydrox/Mg Hydrox/Simethicone (Maalox 30 Ml) 30 ml PO Q4 PRN PRN Reason: Indigestion / Heartburn Last Admin: 12/09/17 21:36 Dose: 30 ml Apixaban (Eliquis) 5 mg PO BID [facility] Last Admin: 12/10/17 10:16 Dose: 5 mg Diphenhydramine HCl (Benadryl) 25 mg IVP Q4H PRN PRN Reason: Itching / Pruritus Last Admin: 12/10/17 08:02 Dose: 25 mg Epoetin Alonzo (Procrit) 10,000 unit SC MWF [facility]PL[facility] Last Admin: 12/09/17 09:50 Dose: 10,000 unit Famotidine (Pepcid) 20 mg PO DAILY [facility] Last Admin: 12/10/17 10:16 Dose: 20 mg Fluticasone/Vilanterol (Breo Ellipta 100-25 Mcg Inh) 1 puff INH RQ24 [facility] Folic Acid (Folic Acid) 1 mg PO DAILY [facility] Last Admin: 12/10/17 10:17 Dose: 1 mg Gabapentin (Neurontin) 300 mg PO TID [facility] Last Admin: 12/10/17 10:17 Dose: 300 mg Guaifenesin/Dextromethorphan (Robitussin Dm) 10 ml PO Q4H PRN PRN Reason: Cough and congestion Last Admin: 12/09/17 14:46 Dose: 10 ml Home Med (Patient's Own Medication) 1 tab PO DAILY [facility] Last Admin: 12/10/17 10:18 Dose: 1 tab Meropenem 1 gm/ Sodium (Chloride) 100 mls @ 100 mls/hr IVPB Q8H [facility]; Protocol Last Admin: 12/10/17 13:06 Dose: Not Given Lactobacillus Acidophilus (Bacid Acidophilus) 1 cap PO BID [facility] Last Admin: 12/10/17 10:17 Dose: 1 cap Methylprednisolone (Solu-Medrol) 20 mg IV Q12 [facility] Last Admin: 12/10/17 10:28 Dose: 20 mg Montelukast Sodium (Singulair) 10 mg PO DAILY [facility] Last Admin: 12/10/17 10:17 Dose: 10 mg Morphine Sulfate (Morphine) 1 mg IVP Q4 PRN PRN Reason: Pain, severe (8-10) Last Admin: 12/10/17 08:02 Dose: 1 mg Olanzapine (Zyprexa) 5 mg PO DAILY [facility] Last Admin: 12/10/17 10:16 Dose: 5 mg Potassium Chloride (K-Dur 20 Meq Er Tab) 40 meq PO DAILY@0800 [facility] Last Admin: 12/10/17 08:27 Dose: 40 meq Multivit/Folic Acid/Iron () 1 tab PO DAILY [facility] Last Admin: 12/10/17 10:17 Dose: 1 tab Sennosides (Senokot Tab) 8.6 mg PO DAILY [facility] Last Admin: 12/10/17 10:17 Dose: 8.6 mg - Labs Labs: 12/10/17 08:08 12/10/17 08:08 PT 11.2 SECONDS (9.7-12.2) 12/02/17 16:42 INR 1.0 12/02/17 16:42 APTT 30 SECONDS (21-34) 12/02/17 16:42 - Additional Findings Additional findings: - Additional Findings Additional findings: - Constitutional Appears: Non-toxic, No Acute Distress - Head Exam Head Exam: ATRAUMATIC, NORMAL INSPECTION, NORMOCEPHALIC - Eye Exam Eye Exam: EOMI. absent: Scleral icterus - ENT Exam ENT Exam: Mucous Membranes Moist - Neck Exam Neck Exam: Normal Inspection - Respiratory Exam Respiratory Exam: Chest Wall Tenderness, Rales, Wheezes, NORMAL BREATHING PATTERN. absent: Accessory Muscle Use, Clear to Ausculation Bilateral, Rhonchi, Respiratory Distress, Stridor - Cardiovascular Exam Cardiovascular Exam: RRR, +S1, +S2 - GI/Abdominal Exam GI & Abdominal Exam: Soft, Tenderness (Diffuse), Normal Bowel Sounds - Extremities Exam Extremities Exam: Normal Capillary Refill. absent: Pedal Edema - Back Exam Back Exam: CVA tenderness (L), CVA tenderness (R), paraspinal tenderness - Neurological Exam Neurological Exam: Alert, Awake, Oriented x3 - Psychiatric Exam Psychiatric exam: Normal Affect. absent: Normal Mood - Skin Skin Exam: Rash (Upper Extremities. ) Assessment and Plan - Assessment and Plan (Free Text) Assessment: 32 year old female with a PMHx of Fibromyalgia, Subclavian DVT, Asthma, Rheumatoid Arthritis, Pneumonia admitted for evaluation and treatment of intractable pain and abnormal lung imaging. Chest CT on admission showed " Increasing nodular interstitial infiltrate involving bilateral mid to lower lung zones and to a lesser extent involvement of the upper lobes. Appearance remains concerning for opportunistic infection. No pleural effusion. No pneumothorax. No large central or segmental pulmonary embolus evident." CXR on admission showed "Trace left pleural effusion costophrenic angle and/or chronic pleural thickening here, no change since 2016. No interval increasing pleural effusion or pneumothorax seen. " Plan: Interstitial Lung Disease/SOB/Cough S/P Bronchoscopy on 12/07 CXR (12/07): Trace linear atelectasis inferior left lung zone laterally. No airspace disease identified bilaterally otherwise. No pleural effusion, pneumothorax or acute cardiovascular changes identified. Viral vs Autoimmune etiology Pulmonology Consulted (Dr. Veliz) Rheumatology Consul (Dr. Nichols) Chest CT 12/02 - Increasing nodular interstitial infiltrate involving bilateral mid to lower lung zones and to a lesser extent involvement of the upper lobes. Appearance remains concerning for opportunistic infection. No pleural effusion. No pneumothorax. No large central or segmental pulmonary embolus evident. Chest Xray 12/03 - Trace left pleural effusion costophrenic angle and/or chronic pleural thickening here, no change since 2016. No interval increasing pleural effusion or pneumothorax seen. Autoimmune Workup (Significant findings): IgG - 482.4 (Low) CCP 117 (HIGH) TEAM GUIDE, DsDNA, Phosphatidlyserine, Anti-Cardiolipin, Antiphospholipid - NEGATIVE CD 3/4/8 - NEGATIVE SHANTELL 6 - NEGATIVE ASO - NEGATIVE Rh - Positive AFB Sputum Cultures-NEGATIVE x3, Mycoplasma-NEGATIVE, Qant Gold-NEGATIVE Sputum Culture/Bronchial Washings (12/07/17): POSITIVE FOR E.COLI Isolation DISCONTINUED TODAY PICC Line for outpatient infusions. Discharge planning . Meds: Meropenem 1gram Q8H Day 2/14 Mucinex DM PRN. Rheumatoid Arthritis/Intractable Pain Rheumatology Consult (Dr. Nichols) Rituxan infusion as an outpatient. Patient will need to follow up with Dr. Nichols or her own rheumotologist for this medication. She will also need to check to see if her insurance covers it as it is an expensive medication. 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 No acute fracture, dislocation or subluxation throughout both hands. No destructive bony lesion identified. Meds: Hydrocychloroquine 200mg BID Leflunomide 20mg PO Daily SulfaSalazine 1500mg BP BID Morphine 2 Q4 PRN tizanidine 4mg PO BID Gabapentin 300mg PO TID UTI Urine Culture (12/03/17): Positive for E.Coli. Meds: Meropenem 1gram Q8H Day 2 Asthma ABG (12/04/17): 7,51/38/89/30.3 Meds: Montelukast 10mg PO Daily DuoNebs RQ6H PRN Solumedrol 20mg IV Q12H Breo Ellipta 1 puff INJ Daily Iron Def. Anemia (Improving) HgB - 9.0 today, Cont. to monitor. Anemia Workup showed low IRon (17) Type and Cross Match, Transfuse for HgB < 7 Meds: Ferrlecit 125mg IVP [facility] Epoetin Alonzo 40,000 Unit IV MWF Hx of Subclavian DVT Meds: Eliquis 5 PO BID Pruritus/Rash Meds: PRN Benadryl PO/TOP Proph Pepcid Folate, Multivitamins Lactobacillus Acidophilus Lovenox K-dur 20 meq Daily Dispo: Will DC on Meropenem. Patient will need daily infusions of Meropenem for a minimum of 2 weeks as an outpatient. Upon completion she must follow up Dr. Pinzon and/or Dr. Veliz as an outpatient. She will also need to follow up with her PMD, and her [employer].
[2017-12-10] MEDS ORDERED: Diphenhydramine 1% Cream (1 oz) TOP PRN (13:27)
--- NOTE | 2017-12-10 13:51 | RAD ---
HISTORY: S/P PICC Insertion COMPARISON: Chest x-ray performed 12/07/17 TECHNIQUE: Chest, one view. FINDINGS: Right-sided PICC extends expected location of the cavoatrial junction. LUNGS: No focal consolidation. Please note that chest x-ray has limited sensitivity for the detection of pulmonary masses. PLEURA: No significant pleural effusion identified. No definite pneumothorax . CARDIOVASCULAR: Heart size appears within normal limits. No significant atherosclerotic calcification present. OSSEOUS STRUCTURES: No acute osseous abnormality identified. VISUALIZED UPPER ABDOMEN: Unremarkable. OTHER FINDINGS: None. IMPRESSION: Right-sided PICC extends expected location of the cavoatrial junction.
--- NOTE | 2017-12-10 16:39 | CP.PCM.PN ---
Subjective - Date & Time of Evaluation Date of Evaluation: 12/10/17 Time of Evaluation: 10:30 - Subjective Subjective: Patient seen and examined today. Patient was OOB and in a chair working with PT. She admits to shortness of breath, cough, [id number] sputum production, chest pain with cough, and chest tightness. She describes of feeling "winded" all the time due to her SOB. Denies any fevers, chills, headaches. Not in acute distress. Objective - Vital Signs/Intake and Output Vital Signs (last 24 hours): Temp Pulse Resp BP Pulse Ox 97.8 F 93 H 20 123/80 95 12/10/17 15:00 12/10/17 15:00 12/10/17 15:00 12/10/17 15:00 12/10/17 15:00 Intake and Output: 12/10/17 12/10/17 06:59 18:59 Intake Total 560 1040 Balance 560 1040 - Medications Medications: Current Medications Al Hydrox/Mg Hydrox/Simethicone (Maalox 30 Ml) 30 ml PO Q4 PRN PRN Reason: Indigestion / Heartburn Last Admin: 12/09/17 21:36 Dose: 30 ml Apixaban (Eliquis) 5 mg PO BID [facility] Last Admin: 12/10/17 10:16 Dose: 5 mg Diphenhydramine HCl (Benadryl) 25 mg IVP Q4H PRN PRN Reason: Itching / Pruritus Last Admin: 12/10/17 14:31 Dose: 25 mg Epoetin Alonzo (Procrit) 10,000 unit SC MWF [facility] Last Admin: 12/09/17 09:50 Dose: 10,000 unit Famotidine (Pepcid) 20 mg PO DAILY [facility] Last Admin: 12/10/17 10:16 Dose: 20 mg Ferric Sodium Gluconate Complex (Ferrlecit) 125 mg IVPB DAILY [facility] Stop: 12/19/17 10:01 Fluticasone/Vilanterol (Breo Ellipta 100-25 Mcg Inh) 1 puff INH RQ24 [facility] Folic Acid (Folic Acid) 1 mg PO DAILY [facility] Last Admin: 12/10/17 10:17 Dose: 1 mg Gabapentin (Neurontin) 300 mg PO TID [facility] Last Admin: 12/10/17 13:23 Dose: 300 mg Guaifenesin/Dextromethorphan (Robitussin Dm) 10 ml PO Q4H PRN PRN Reason: Cough and congestion Last Admin: 12/09/17 14:46 Dose: 10 ml Home Med (Patient's Own Medication) 1 tab PO DAILY [facility] Last Admin: 12/10/17 10:18 Dose: 1 tab Meropenem 1 gm/ Sodium (Chloride) 100 mls @ 100 mls/hr IVPB Q8H [facility]; Protocol Last Admin: 12/10/17 14:30 Dose: 100 mls/hr Lactobacillus Acidophilus (Bacid Acidophilus) 1 cap PO BID [facility] Last Admin: 12/10/17 10:17 Dose: 1 cap Methylprednisolone (Solu-Medrol) 20 mg IV Q12 [facility] Last Admin: 12/10/17 10:28 Dose: 20 mg Montelukast Sodium (Singulair) 10 mg PO DAILY [facility] Last Admin: 12/10/17 10:17 Dose: 10 mg Morphine Sulfate (Morphine) 1 mg IVP Q4 PRN PRN Reason: Pain, severe (8-10) Last Admin: 12/10/17 14:30 Dose: 1 mg Olanzapine (Zyprexa) 5 mg PO DAILY [facility] Last Admin: 12/10/17 10:16 Dose: 5 mg Potassium Chloride (K-Dur 20 Meq Er Tab) 40 meq PO DAILY@0800 [facility] Last Admin: 12/10/17 08:27 Dose: 40 meq Multivit/Folic Acid/Iron () 1 tab PO DAILY [facility] Last Admin: 12/10/17 10:17 Dose: 1 tab Sennosides (Senokot Tab) 8.6 mg PO DAILY [facility] Last Admin: 12/10/17 10:17 Dose: 8.6 mg Zinc Acetate/Diphenhydramine (Benadryl 1% Zinc Acetate -0.1%) 0 cre TOP Q6H PRN PRN Reason: pruritis - Labs Labs: 12/10/17 08:08 12/10/17 08:08 PT 11.2 SECONDS (9.7-12.2) 12/02/17 16:42 INR 1.0 12/02/17 16:42 APTT 30 SECONDS (21-34) 12/02/17 16:42 Assessment and Plan (1) Asthma exacerbation Status: Chronic (2) Arthritis, rheumatoid Status: Chronic (3) DVT (deep venous thrombosis) Status: Acute (4) Anemia Status: Chronic
[2017-12-10] MEDS: MethylPREDNISolone 40 mg Vial IVP SCH (18:54)
[2017-12-10] MEDS: Albuterol-Ipratrop 3 mg / 0.5 (3 ml) UD INH SCH (19:10)
--- NOTE | 2017-12-10 20:10 | CP.PCM.PN ---
Subjective - Date & Time of Evaluation Date of Evaluation: 12/10/17 Time of Evaluation: 07:15 - Subjective Subjective: clinically same Objective - Vital Signs/Intake and Output Vital Signs (last 24 hours): Temp Pulse Resp BP Pulse Ox 97.8 F 93 H 20 123/80 95 12/10/17 15:00 12/10/17 15:00 12/10/17 15:00 12/10/17 15:00 12/10/17 15:00 Intake and Output: 12/10/17 12/11/17 18:59 06:59 Intake Total 1040 Balance 1040 - Medications Medications: Current Medications Al Hydrox/Mg Hydrox/Simethicone (Maalox 30 Ml) 30 ml PO Q4 PRN PRN Reason: Indigestion / Heartburn Last Admin: 12/09/17 21:36 Dose: 30 ml Albuterol/Ipratropium (Duoneb 3 Mg/0.5 Mg (3 Ml) Ud) 3 ml INH RQ4 [facility] Last Admin: 12/10/17 19:10 Dose: 3 ml Apixaban (Eliquis) 5 mg PO BID [facility] Last Admin: 12/10/17 17:45 Dose: 5 mg Diphenhydramine HCl (Benadryl) 25 mg IVP Q4H PRN PRN Reason: Itching / Pruritus Last Admin: 12/10/17 18:30 Dose: 25 mg Epoetin Alonzo (Procrit) 10,000 unit SC MWF [facility] Last Admin: 12/09/17 09:50 Dose: 10,000 unit Famotidine (Pepcid) 20 mg PO DAILY [facility] Last Admin: 12/10/17 10:16 Dose: 20 mg Ferric Sodium Gluconate Complex (Ferrlecit) 125 mg IVPB DAILY [facility] Stop: 12/19/17 10:01 Fluticasone/Vilanterol (Breo Ellipta 100-25 Mcg Inh) 1 puff INH RQ24 [facility] Folic Acid (Folic Acid) 1 mg PO DAILY [facility] Last Admin: 12/10/17 10:17 Dose: 1 mg Gabapentin (Neurontin) 300 mg PO TID [facility] Last Admin: 12/10/17 17:45 Dose: 300 mg Guaifenesin/Dextromethorphan (Robitussin Dm) 10 ml PO Q4H PRN PRN Reason: Cough and congestion Last Admin: 12/09/17 14:46 Dose: 10 ml Home Med (Patient's Own Medication) 1 tab PO DAILY [facility] Last Admin: 12/10/17 10:18 Dose: 1 tab Meropenem 1 gm/ Sodium (Chloride) 100 mls @ 100 mls/hr IVPB Q8H [facility]; Protocol Last Admin: 12/10/17 14:30 Dose: 100 mls/hr Lactobacillus Acidophilus (Bacid Acidophilus) 1 cap PO BID [facility] Last Admin: 12/10/17 17:45 Dose: 1 cap Methylprednisolone (Solu-Medrol) 40 mg IVP BID [facility] Last Admin: 12/10/17 18:54 Dose: 40 mg Montelukast Sodium (Singulair) 10 mg PO DAILY [facility] Last Admin: 12/10/17 10:17 Dose: 10 mg Morphine Sulfate (Morphine) 1 mg IVP Q4 PRN PRN Reason: Pain, severe (8-10) Last Admin: 12/10/17 18:30 Dose: 1 mg Olanzapine (Zyprexa) 5 mg PO DAILY [facility] Last Admin: 12/10/17 10:16 Dose: 5 mg Potassium Chloride (K-Dur 20 Meq Er Tab) 40 meq PO DAILY@0800 [facility] Last Admin: 12/10/17 08:27 Dose: 40 meq Multivit/Folic Acid/Iron () 1 tab PO DAILY [facility] Last Admin: 12/10/17 10:17 Dose: 1 tab Sennosides (Senokot Tab) 8.6 mg PO DAILY [facility] Last Admin: 12/10/17 10:17 Dose: 8.6 mg Zinc Acetate/Diphenhydramine (Benadryl 1% Zinc Acetate -0.1%) 0 cre TOP Q6H PRN PRN Reason: pruritis - Labs Labs: 12/10/17 08:08 12/10/17 08:08 PT 11.2 SECONDS (9.7-12.2) 12/02/17 16:42 INR 1.0 12/02/17 16:42 APTT 30 SECONDS (21-34) 12/02/17 16:42
[2017-12-10 21:55] LABS: IGG SUBCLASS 4 11.2 mg/dL (4.0-86.0)
--- NOTE | 2017-12-10 22:13 | CP.PCM.PN ---
Subjective - Date & Time of Evaluation Date of Evaluation: 12/10/17 Time of Evaluation: 19:10 - Subjective Subjective: patient still has severe diffuse joint pain. Patient reviewed Rituxan literature. She is concerned with the fact that she has had recurrent infections. She feels Rituxa may lower her immunological system. 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 Objective - Vital Signs/Intake and Output Vital Signs (last 24 hours): Temp Pulse Resp BP Pulse Ox 97.8 F 93 H 20 123/80 95 12/10/17 15:00 12/10/17 15:00 12/10/17 15:00 12/10/17 15:00 12/10/17 15:00 Intake and Output: 12/10/17 12/11/17 18:59 06:59 Intake Total 1040 Balance 1040 - Medications Medications: Current Medications Al Hydrox/Mg Hydrox/Simethicone (Maalox 30 Ml) 30 ml PO Q4 PRN PRN Reason: Indigestion / Heartburn Last Admin: 12/09/17 21:36 Dose: 30 ml Albuterol/Ipratropium (Duoneb 3 Mg/0.5 Mg (3 Ml) Ud) 3 ml INH RQ4 [facility] Last Admin: 12/10/17 19:10 Dose: 3 ml Apixaban (Eliquis) 5 mg PO BID [facility] Last Admin: 12/10/17 17:45 Dose: 5 mg Diphenhydramine HCl (Benadryl) 25 mg IVP Q4H PRN PRN Reason: Itching / Pruritus Last Admin: 12/10/17 18:30 Dose: 25 mg Epoetin Alonzo (Procrit) 10,000 unit SC MWF [facility] Last Admin: 12/09/17 09:50 Dose: 10,000 unit Famotidine (Pepcid) 20 mg PO DAILY [facility] Last Admin: 12/10/17 10:16 Dose: 20 mg Ferric Sodium Gluconate Complex (Ferrlecit) 125 mg IVPB DAILY [facility] Stop: 12/19/17 10:01 Fluticasone/Vilanterol (Breo Ellipta 100-25 Mcg Inh) 1 puff INH RQ24 [facility] Folic Acid (Folic Acid) 1 mg PO DAILY [facility] Last Admin: 12/10/17 10:17 Dose: 1 mg Gabapentin (Neurontin) 300 mg PO TID [facility] Last Admin: 12/10/17 17:45 Dose: 300 mg Guaifenesin/Dextromethorphan (Robitussin Dm) 10 ml PO Q4H PRN PRN Reason: Cough and congestion Last Admin: 12/09/17 14:46 Dose: 10 ml Home Med (Patient's Own Medication) 1 tab PO DAILY [facility] Last Admin: 12/10/17 10:18 Dose: 1 tab Meropenem 1 gm/ Sodium (Chloride) 100 mls @ 100 mls/hr IVPB Q8H [facility]; Protocol Last Admin: 12/10/17 20:28 Dose: 100 mls/hr Lactobacillus Acidophilus (Bacid Acidophilus) 1 cap PO BID [facility] Last Admin: 12/10/17 17:45 Dose: 1 cap Methylprednisolone (Solu-Medrol) 40 mg IVP BID [facility] Last Admin: 12/10/17 18:54 Dose: 40 mg Montelukast Sodium (Singulair) 10 mg PO DAILY [facility] Last Admin: 12/10/17 10:17 Dose: 10 mg Morphine Sulfate (Morphine) 1 mg IVP Q4 PRN PRN Reason: Pain, severe (8-10) Last Admin: 12/10/17 18:30 Dose: 1 mg Olanzapine (Zyprexa) 5 mg PO DAILY [facility] Last Admin: 12/10/17 10:16 Dose: 5 mg Potassium Chloride (K-Dur 20 Meq Er Tab) 40 meq PO DAILY@0800 [facility] Last Admin: 12/10/17 08:27 Dose: 40 meq Multivit/Folic Acid/Iron () 1 tab PO DAILY [facility] Last Admin: 12/10/17 10:17 Dose: 1 tab Sennosides (Senokot Tab) 8.6 mg PO DAILY [facility] Last Admin: 12/10/17 10:17 Dose: 8.6 mg Zinc Acetate/Diphenhydramine (Benadryl 1% Zinc Acetate -0.1%) 0 cre TOP Q6H PRN PRN Reason: pruritis - Labs Labs: 12/10/17 08:08 12/10/17 08:08 PT 11.2 SECONDS (9.7-12.2) 12/02/17 16:42 INR 1.0 12/02/17 16:42 APTT 30 SECONDS (21-34) 10/22/18 16:42 - Constitutional Appears: Chronically Ill - Head Exam Head Exam: NORMOCEPHALIC - Eye Exam Eye Exam: Normal appearance Pupil Exam: NORMAL ACCOMODATION - ENT Exam ENT Exam: Normal Exam - Neck Exam Neck Exam: Normal Inspection - Respiratory Exam Respiratory Exam: Decreased Breath Sounds - Cardiovascular Exam Cardiovascular Exam: REGULAR RHYTHM - GI/Abdominal Exam GI & Abdominal Exam: Normal Bowel Sounds - Rectal Exam Rectal Exam: Deferred - Exam External exam: NORMAL EXTERNAL EXAM - Extremities Exam Extremities Exam: Normal Inspection - Back Exam Back Exam: NORMAL INSPECTION - Neurological Exam Neurological Exam: Oriented x3 - Psychiatric Exam Psychiatric exam: Depressed - Skin Skin Exam: Dry Assessment and Plan (1) Rheumatoid arthritis flare Status: Acute (2) Fibromyalgia Status: Acute (3) Anemia Status: Chronic
[2017-12-11] MEDS: Albuterol-Ipratrop 3 mg / 0.5 (3 ml) UD INH SCH ×6 (00:35→20:04)
[2017-12-11] MEDS: DiphenhydrAMINE 50 mg/ml Inj IVP PRN ×6 (02:31→22:56)
[2017-12-11] MEDS: Meropenem 1 GM in Sodium Chloride 0.9% 100 ML IVPB SCH ×3 (03:20→19:35)
[2017-12-11 07:21] LABS: ALB/GLOB RATIO 1.2 (1.0-2.1); ALBUMIN 3.3 g/dL (3.5-5.0); ALT/SGPT 50 U/L (9-52); AST/SGOT 27 U/L (14-36); BLOOD UREA NITROGEN 5 mg/dL (7-17); CALCIUM 8.3 mg/dl (8.6-10.4); GFR NON-AFRICAN AMERICAN > 60
[2017-12-11 07:39] LABS: HEMOGLOBIN 8.8 g/dL (11.0-16.0); MEAN CELL VOLUME 84.2 fL (81.0-99.0); MEAN CORPUSCULAR HEMOGLOBIN 25.8 pg (27.0-31.0); MEAN CORPUSCULAR HGB CONC 30.7 g/dL (33.0-37.0); MEAN PLATELET VOLUME 6.6 fL (7.2-11.7); RBC 3.42 Mil/uL (3.80-5.20); WHITE BLOOD COUNT 16.3 K/uL (4.8-10.8)
[2017-12-11] MEDS: Potassium Chloride 20 mEq ER Tab PO SCH (08:19)
[2017-12-11] MEDS: Lactobacillus Acidophilus 500 MU Cap PO SCH ×2 (09:51→18:18)
[2017-12-11] MEDS: Prenatal Multivit/Folic Acid/Iron Tab PO SCH (09:51)
[2017-12-11] MEDS: LEFLUNOMIDE 20 MG PO SCH (09:52)
[2017-12-11] MEDS: EPOETIN ALFA 10,000 UNIT/ML ML SC SCH (09:52)
[2017-12-11] MEDS: MethylPREDNISolone 40 mg Vial IVP SCH ×2 (09:52→18:19)
[2017-12-11] MEDS ORDERED: Ferric Sodium Gluconat Complex 62.5 mg/5 ml Vial IVPB SCH (10:00)
[2017-12-11 10:16] LABS: LYMPH # 2.4 K/uL (1.0-4.3); MONO # 0.9 K/uL (0.0-0.8)
[2017-12-11] MEDS: Ferric Sodium Gluconat Complex 125 MG in Sodium Chloride 0.9% 100 ML IVPB SCH (10:43)
[2017-12-11] MEDS: guaiFENesin DM 200 mg-20 mg/10 ml UD PO PRN (10:44)
--- NOTE | 2017-12-11 16:18 | CP.PCM.PN ---
Subjective - Date & Time of Evaluation Date of Evaluation: 12/11/17 Time of Evaluation: 10:00 - Subjective Subjective: Patient seen and examined today. Patient states that she is feeling better today. Afebrile and not in acute distress. Objective - Vital Signs/Intake and Output Vital Signs (last 24 hours): Temp Pulse Resp BP Pulse Ox 98.4 F 84 20 115/75 95 12/11/17 08:05 12/11/17 08:05 12/11/17 08:05 12/11/17 08:05 12/11/17 08:05 Intake and Output: 12/11/17 12/11/17 06:59 18:59 Intake Total 450 690 Balance 450 690 - Medications Medications: Current Medications Al Hydrox/Mg Hydrox/Simethicone (Maalox 30 Ml) 30 ml PO Q4 PRN PRN Reason: Indigestion / Heartburn Last Admin: 12/09/17 21:36 Dose: 30 ml Albuterol/Ipratropium (Duoneb 3 Mg/0.5 Mg (3 Ml) Ud) 3 ml INH RQ4 [facility] Last Admin: 12/11/17 11:18 Dose: 3 ml Apixaban (Eliquis) 5 mg PO BID [facility] Last Admin: 12/11/17 09:51 Dose: 5 mg Diphenhydramine HCl (Benadryl) 25 mg IVP Q4H PRN PRN Reason: Itching / Pruritus Last Admin: 12/11/17 14:54 Dose: 25 mg Epoetin Alonzo (Procrit) 10,000 unit SC MWF [facility] Last Admin: 12/11/17 09:52 Dose: 10,000 unit Famotidine (Pepcid) 20 mg PO DAILY [facility] Last Admin: 12/11/17 09:51 Dose: 20 mg Fluticasone/Vilanterol (Breo Ellipta 100-25 Mcg Inh) 1 puff INH RQ24 [facility] Folic Acid (Folic Acid) 1 mg PO DAILY [facility] Last Admin: 12/11/17 09:51 Dose: 1 mg Gabapentin (Neurontin) 300 mg PO TID [facility] Last Admin: 12/11/17 14:10 Dose: 300 mg Guaifenesin/Dextromethorphan (Robitussin Dm) 10 ml PO Q4H PRN PRN Reason: Cough and congestion Last Admin: 12/11/17 10:44 Dose: 10 ml Home Med (Patient's Own Medication) 1 tab PO DAILY [facility] Last Admin: 12/11/17 09:52 Dose: 1 tab Meropenem 1 gm/ Sodium (Chloride) 100 mls @ 100 mls/hr IVPB Q8H [facility]; Protocol Stop: 12/12/17 00:00 Last Admin: 12/11/17 11:43 Dose: 100 mls/hr Ferric Sodium Gluconate Complex 125 mg/ Sodium Chloride 110 mls @ 110 mls/hr IVPB DAILY [facility] Stop: 12/19/17 10:01 Last Admin: 12/11/17 10:43 Dose: 110 mls/hr Ertapenem (Invanz) 1 gm in 50 mls @ 100 mls/hr IVPB DAILY [facility]; Protocol Stop: 12/12/17 10:29 Lactobacillus Acidophilus (Bacid Acidophilus) 1 cap PO BID [facility] Last Admin: 12/11/17 09:51 Dose: 1 cap Methylprednisolone (Solu-Medrol) 40 mg IVP BID [facility] Last Admin: 12/11/17 09:52 Dose: 40 mg Montelukast Sodium (Singulair) 10 mg PO DAILY [facility] Last Admin: 12/11/17 09:52 Dose: 10 mg Morphine Sulfate (Morphine) 1 mg IVP Q4 PRN PRN Reason: Pain, severe (8-10) Last Admin: 12/11/17 14:54 Dose: 1 mg Olanzapine (Zyprexa) 5 mg PO DAILY [facility] Last Admin: 12/11/17 09:51 Dose: 5 mg Potassium Chloride (K-Dur 20 Meq Er Tab) 40 meq PO DAILY@0800 [facility] Last Admin: 12/11/17 08:19 Dose: 40 meq Multivit/Folic Acid/Iron () 1 tab PO DAILY [facility] Last Admin: 12/11/17 09:51 Dose: 1 tab Sennosides (Senokot Tab) 8.6 mg PO DAILY [facility] Last Admin: 12/11/17 09:51 Dose: 8.6 mg Zinc Acetate/Diphenhydramine (Benadryl 1% Zinc Acetate -0.1%) 0 cre TOP Q6H PRN PRN Reason: pruritis - Labs Labs: 12/11/17 06:47 12/11/17 06:47 PT 11.2 SECONDS (9.7-12.2) 12/02/17 16:42 INR 1.0 12/02/17 16:42 APTT 30 SECONDS (21-34) 12/02/17 16:42 Assessment and Plan (1) Asthma exacerbation Assessment & Plan: taper IV steroids and continue nebulizer treatment IV antibiotics as per infectious disease Status: Chronic (3) Arthritis, rheumatoid Status: Chronic (4) DVT (deep venous thrombosis) Status: Acute (5) Anemia Status: Chronic
--- NOTE | 2017-12-11 17:03 | CP.PCM.PN ---
Subjective - Date & Time of Evaluation Date of Evaluation: 12/11/17 Time of Evaluation: 17:01 - Subjective Subjective: Patient seen an examined at bedside. She tolerated her meropenem. SHe states that she feels slightly better than yesterday. Still has generalized body pain that is controlled with her pain medication. She still complains of pruritis. She also still complains of mild SOB with a productive cough. Patient denies any fevers, chills, changes in bowel habits or urinary symptoms. Objective - Vital Signs/Intake and Output Vital Signs (last 24 hours): Temp Pulse Resp BP Pulse Ox 97.9 F 110 H 20 115/77 93 L 12/11/17 15:36 12/11/17 15:36 12/11/17 15:36 12/11/17 15:36 12/11/17 15:36 Intake and Output: 12/11/17 12/11/17 06:59 18:59 Intake Total 450 690 Balance 450 690 - Medications Medications: Current Medications Al Hydrox/Mg Hydrox/Simethicone (Maalox 30 Ml) 30 ml PO Q4 PRN PRN Reason: Indigestion / Heartburn Last Admin: 12/09/17 21:36 Dose: 30 ml Albuterol/Ipratropium (Duoneb 3 Mg/0.5 Mg (3 Ml) Ud) 3 ml INH RQ4 [facility] Last Admin: 12/11/17 16:16 Dose: 3 ml Apixaban (Eliquis) 5 mg PO BID [facility] Last Admin: 12/11/17 09:51 Dose: 5 mg Diphenhydramine HCl (Benadryl) 25 mg IVP Q4H PRN PRN Reason: Itching / Pruritus Last Admin: 12/11/17 14:54 Dose: 25 mg Epoetin Alonzo (Procrit) 10,000 unit SC MWF [facility] Last Admin: 12/11/17 09:52 Dose: 10,000 unit Famotidine (Pepcid) 20 mg PO DAILY [facility] Last Admin: 12/11/17 09:51 Dose: 20 mg Fluticasone/Vilanterol (Breo Ellipta 100-25 Mcg Inh) 1 puff INH RQ24 [facility] Folic Acid (Folic Acid) 1 mg PO DAILY [facility] Last Admin: 12/11/17 09:51 Dose: 1 mg Gabapentin (Neurontin) 300 mg PO TID [facility] Last Admin: 12/11/17 14:10 Dose: 300 mg Guaifenesin/Dextromethorphan (Robitussin Dm) 10 ml PO Q4H PRN PRN Reason: Cough and congestion Last Admin: 12/11/17 10:44 Dose: 10 ml Home Med (Patient's Own Medication) 1 tab PO DAILY [facility] Last Admin: 12/11/17 09:52 Dose: 1 tab Meropenem 1 gm/ Sodium (Chloride) 100 mls @ 100 mls/hr IVPB Q8H [facility]; Protocol Stop: 12/12/17 00:00 Last Admin: 12/11/17 11:43 Dose: 100 mls/hr Ferric Sodium Gluconate Complex 125 mg/ Sodium Chloride 110 mls @ 110 mls/hr IVPB DAILY [facility] Stop: 12/19/17 10:01 Last Admin: 12/11/17 10:43 Dose: 110 mls/hr Ertapenem (Invanz) 1 gm in 50 mls @ 100 mls/hr IVPB DAILY [facility]; Protocol Stop: 12/12/17 10:29 Lactobacillus Acidophilus (Bacid Acidophilus) 1 cap PO BID [facility] Last Admin: 12/11/17 09:51 Dose: 1 cap Methylprednisolone (Solu-Medrol) 40 mg IVP BID [facility] Last Admin: 12/11/17 09:52 Dose: 40 mg Montelukast Sodium (Singulair) 10 mg PO DAILY [facility] Last Admin: 12/11/17 09:52 Dose: 10 mg Morphine Sulfate (Morphine) 1 mg IVP Q4 PRN PRN Reason: Pain, severe (8-10) Last Admin: 12/11/17 14:54 Dose: 1 mg Olanzapine (Zyprexa) 5 mg PO DAILY [facility] Last Admin: 12/11/17 09:51 Dose: 5 mg Potassium Chloride (K-Dur 20 Meq Er Tab) 40 meq PO DAILY@0800 [facility] Last Admin: 12/11/17 08:19 Dose: 40 meq Multivit/Folic Acid/Iron () 1 tab PO DAILY [facility] Last Admin: 12/11/17 09:51 Dose: 1 tab Sennosides (Senokot Tab) 8.6 mg PO DAILY [facility] Last Admin: 12/11/17 09:51 Dose: 8.6 mg Zinc Acetate/Diphenhydramine (Benadryl 1% Zinc Acetate -0.1%) 0 cre TOP Q6H PRN PRN Reason: pruritis - Labs Labs: 12/11/17 06:47 12/11/17 06:47 PT 11.2 SECONDS (9.7-12.2) 12/02/17 16:42 INR 1.0 12/02/17 16:42 APTT 30 SECONDS (21-34) 12/02/17 16:42 - Additional Findings Additional findings: - Constitutional Appears: Non-toxic, No Acute Distress - Head Exam Head Exam: ATRAUMATIC, NORMAL INSPECTION, NORMOCEPHALIC - Eye Exam Eye Exam: EOMI. absent: Scleral icterus - ENT Exam ENT Exam: Mucous Membranes Moist - Neck Exam Neck Exam: Normal Inspection - Respiratory Exam Respiratory Exam: Chest Wall Tenderness, Rales, Wheezes, NORMAL BREATHING PATTERN. absent: Accessory Muscle Use, Clear to Ausculation Bilateral, Rhonchi, Respiratory Distress, Stridor - Cardiovascular Exam Cardiovascular Exam: RRR, +S1, +S2 - GI/Abdominal Exam GI & Abdominal Exam: Soft, Tenderness (Diffuse), Normal Bowel Sounds - Extremities Exam Extremities Exam: Normal Capillary Refill. absent: Pedal Edema - Back Exam Back Exam: CVA tenderness (L), CVA tenderness (R), paraspinal tenderness - Neurological Exam Neurological Exam: Alert, Awake, Oriented x3 - Psychiatric Exam Psychiatric exam: Normal Affect. absent: Normal Mood - Skin Skin Exam: Rash (Upper Extremities.) Assessment and Plan - Assessment and Plan (Free Text) Assessment: 32 year old female with a PMHx of Fibromyalgia, Subclavian DVT, Asthma, Rheumatoid Arthritis, Pneumonia admitted for evaluation and treatment of intractable pain and abnormal lung imaging. Chest CT on admission showed " Increasing nodular interstitial infiltrate involving bilateral mid to lower lung zones and to a lesser extent involvement of the upper lobes. Appearance remains concerning for opportunistic infection. No pleural effusion. No pneumothorax. No large central or segmental pulmonary embolus evident." CXR on admission showed "Trace left pleural effusion costophrenic angle and/or chronic pleural thickening here, no change since 2016. No interval increasing pleural effusion or pneumothorax seen. " Plan: Interstitial Lung Disease/SOB/Cough S/P Bronchoscopy on 12/07 CXR (12/07): Trace linear atelectasis inferior left lung zone laterally. No airspace disease identified bilaterally otherwise. No pleural effusion, pneumothorax or acute cardiovascular changes identified. Viral vs Autoimmune etiology Pulmonology Consulted (Dr. Veliz) Rheumatology Consul (Dr. Nichols) Chest CT 12/02 - Increasing nodular interstitial infiltrate involving bilateral mid to lower lung zones and to a lesser extent involvement of the upper lobes. Appearance remains concerning for opportunistic infection. No pleural effusion. No pneumothorax. No large central or segmental pulmonary embolus evident. Chest Xray 12/03 - Trace left pleural effusion costophrenic angle and/or chronic pleural thickening here, no change since 2016. No interval increasing pleural effusion or pneumothorax seen. Autoimmune Workup (Significant findings): IgG - 482.4 (Low) CCP 117 (HIGH) DONATION WORKER, DsDNA, Phosphatidlyserine, Anti-Cardiolipin, Antiphospholipid - NEGATIVE CD 3/4/8 - NEGATIVE SHANTELL 6 - NEGATIVE ASO - NEGATIVE Rh - Positive AFB Sputum Cultures-NEGATIVE x3, Mycoplasma-NEGATIVE, Qant Gold-NEGATIVE Sputum Culture/Bronchial Washings (12/07/17): POSITIVE FOR E.COLI CONTACT Isolation. PICC Line for outpatient infusions. Discharge planning . Meds: Meropenem 1gram Q8H <----Last day then switch to Ertapenem 1gm Daily tmrw Mucinex DM PRN. Rheumatoid Arthritis/Intractable Pain Rheumatology Consult (Dr. Nichols) Rituxan infusion as an outpatient. Patient will need to follow up with Dr. Nichols or her own rheumotologist for this medication. She will also need to check to see if her insurance covers it as it is an expensive medication. 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 No acute fracture, dislocation or subluxation throughout both hands. No destructive bony lesion identified. Meds: Hydrocychloroquine 200mg BID Leflunomide 20mg PO Daily SulfaSalazine 1500mg BP BID Morphine 2 Q4 PRN tizanidine 4mg PO BID Gabapentin 300mg PO TID UTI Urine Culture (12/03/17): Positive for E.Coli. Meds: Meropenem 1gram Q8H Day 2 Asthma ABG (12/04/17): 7,51/38/89/30.3 Meds: Montelukast 10mg PO Daily DuoNebs RQ6H PRN Solumedrol 20mg IV Q12H Breo Ellipta 1 puff INJ Daily Iron Def. Anemia (Improving) HgB - 9.0 today, Cont. to monitor. Anemia Workup showed low IRon (17) Type and Cross Match, Transfuse for HgB < 7 Meds: Ferrlecit 125mg IVP [facility] Epoetin Alonzo 40,000 Unit IV MWF Hx of Subclavian DVT Meds: Eliquis 5 PO BID Pruritus/Rash Meds: PRN Benadryl PO/TOP Proph Pepcid Folate, Multivitamins Lactobacillus Acidophilus Lovenox K-dur 20 meq Daily Dispo: Will DC on Ertapenem (Invanz). Patient will need daily infusions of Ertapenem for a minimum of 2 weeks as an outpatient. Upon completion she must follow up Dr. Pinzon and/or her own high school librarian. She will also need to follow up with her PMD, and her Tailor Apprentice. Patient to be Discharged tomorrow kamran haney if she tolerates Ertapenem. She has been improved for Home infusions per Case management.
--- NOTE | 2017-12-11 18:11 | CP.PCM.PN ---
Subjective - Date & Time of Evaluation Date of Evaluation: 12/11/17 Time of Evaluation: 07:00 - Subjective Subjective: NO NEW COMPLAINTS ARRANGEMENTS MADE FOR OUT PT RX Objective - Vital Signs/Intake and Output Vital Signs (last 24 hours): Temp Pulse Resp BP Pulse Ox 97.9 F 110 H 20 115/77 93 L 12/11/17 15:36 12/11/17 15:36 12/11/17 15:36 12/11/17 15:36 12/11/17 15:36 Intake and Output: 12/11/17 12/11/17 06:59 18:59 Intake Total 450 690 Balance 450 690 - Medications Medications: Current Medications Al Hydrox/Mg Hydrox/Simethicone (Maalox 30 Ml) 30 ml PO Q4 PRN PRN Reason: Indigestion / Heartburn Last Admin: 12/09/17 21:36 Dose: 30 ml Albuterol/Ipratropium (Duoneb 3 Mg/0.5 Mg (3 Ml) Ud) 3 ml INH RQ4 [facility] Last Admin: 12/11/17 16:16 Dose: 3 ml Apixaban (Eliquis) 5 mg PO BID [facility] Last Admin: 12/11/17 09:51 Dose: 5 mg Diphenhydramine HCl (Benadryl) 25 mg IVP Q4H PRN PRN Reason: Itching / Pruritus Last Admin: 12/11/17 14:54 Dose: 25 mg Epoetin Alonzo (Procrit) 10,000 unit SC MWF [facility] Last Admin: 12/11/17 09:52 Dose: 10,000 unit Famotidine (Pepcid) 20 mg PO DAILY [facility] Last Admin: 12/11/17 09:51 Dose: 20 mg Fluticasone/Vilanterol (Breo Ellipta 100-25 Mcg Inh) 1 puff INH RQ24 [facility] Folic Acid (Folic Acid) 1 mg PO DAILY [facility] Last Admin: 12/11/17 09:51 Dose: 1 mg Gabapentin (Neurontin) 300 mg PO TID [facility] Last Admin: 12/11/17 14:10 Dose: 300 mg Guaifenesin/Dextromethorphan (Robitussin Dm) 10 ml PO Q4H PRN PRN Reason: Cough and congestion Last Admin: 12/11/17 10:44 Dose: 10 ml Home Med (Patient's Own Medication) 1 tab PO DAILY [facility] Last Admin: 12/11/17 09:52 Dose: 1 tab Meropenem 1 gm/ Sodium (Chloride) 100 mls @ 100 mls/hr IVPB Q8H [facility]; Protocol Stop: 12/12/17 00:00 Last Admin: 12/11/17 11:43 Dose: 100 mls/hr Ferric Sodium Gluconate Complex 125 mg/ Sodium Chloride 110 mls @ 110 mls/hr IVPB DAILY [facility] Stop: 12/19/17 10:01 Last Admin: 12/11/17 10:43 Dose: 110 mls/hr Ertapenem (Invanz) 1 gm in 50 mls @ 100 mls/hr IVPB DAILY [facility]; Protocol Stop: 12/12/17 08:29 Lactobacillus Acidophilus (Bacid Acidophilus) 1 cap PO BID [facility] Last Admin: 12/11/17 09:51 Dose: 1 cap Methylprednisolone (Solu-Medrol) 40 mg IVP BID [facility] Last Admin: 12/11/17 09:52 Dose: 40 mg Montelukast Sodium (Singulair) 10 mg PO DAILY [facility] Last Admin: 12/11/17 09:52 Dose: 10 mg Morphine Sulfate (Morphine) 1 mg IVP Q4 PRN PRN Reason: Pain, severe (8-10) Last Admin: 12/11/17 14:54 Dose: 1 mg Olanzapine (Zyprexa) 5 mg PO DAILY [facility] Last Admin: 12/11/17 09:51 Dose: 5 mg Potassium Chloride (K-Dur 20 Meq Er Tab) 40 meq PO DAILY@0800 [facility] Last Admin: 12/11/17 08:19 Dose: 40 meq Multivit/Folic Acid/Iron () 1 tab PO DAILY [facility] Last Admin: 12/11/17 09:51 Dose: 1 tab Sennosides (Senokot Tab) 8.6 mg PO DAILY [facility] Last Admin: 12/11/17 09:51 Dose: 8.6 mg Zinc Acetate/Diphenhydramine (Benadryl 1% Zinc Acetate -0.1%) 0 cre TOP Q6H PRN PRN Reason: pruritis - Labs Labs: 12/11/17 06:47 12/11/17 06:47 PT 11.2 SECONDS (9.7-12.2) 12/02/17 16:42 INR 1.0 12/02/17 16:42 APTT 30 SECONDS (21-34) 12/02/17 16:42 Assessment and Plan (1) Chest pain Status: Chronic (3) Arthritis, rheumatoid Status: Chronic (4) Asthma Status: Chronic
--- NOTE | 2017-12-11 18:28 | CP.PCM.PN ---
Subjective - Date & Time of Evaluation Date of Evaluation: 12/11/17 Time of Evaluation: 07:15 - Subjective Subjective: clinically same Objective - Vital Signs/Intake and Output Vital Signs (last 24 hours): Temp Pulse Resp BP Pulse Ox 97.9 F 110 H 20 115/77 93 L 12/11/17 15:36 12/11/17 15:36 12/11/17 15:36 12/11/17 15:36 12/11/17 15:36 Intake and Output: 12/11/17 12/11/17 06:59 18:59 Intake Total 450 690 Balance 450 690 - Medications Medications: Current Medications Al Hydrox/Mg Hydrox/Simethicone (Maalox 30 Ml) 30 ml PO Q4 PRN PRN Reason: Indigestion / Heartburn Last Admin: 12/09/17 21:36 Dose: 30 ml Albuterol/Ipratropium (Duoneb 3 Mg/0.5 Mg (3 Ml) Ud) 3 ml INH RQ4 [facility] Last Admin: 12/11/17 16:16 Dose: 3 ml Apixaban (Eliquis) 5 mg PO BID [facility] Last Admin: 12/11/17 18:19 Dose: 5 mg Diphenhydramine HCl (Benadryl) 25 mg IVP Q4H PRN PRN Reason: Itching / Pruritus Last Admin: 12/11/17 14:54 Dose: 25 mg Epoetin Alonzo (Procrit) 10,000 unit SC MWF [facility] Last Admin: 12/11/17 09:52 Dose: 10,000 unit Famotidine (Pepcid) 20 mg PO DAILY [facility] Last Admin: 12/11/17 09:51 Dose: 20 mg Fluticasone/Vilanterol (Breo Ellipta 100-25 Mcg Inh) 1 puff INH RQ24 [facility] Folic Acid (Folic Acid) 1 mg PO DAILY [facility] Last Admin: 12/11/17 09:51 Dose: 1 mg Gabapentin (Neurontin) 300 mg PO TID [facility] Last Admin: 12/11/17 18:18 Dose: 300 mg Guaifenesin/Dextromethorphan (Robitussin Dm) 10 ml PO Q4H PRN PRN Reason: Cough and congestion Last Admin: 12/11/17 10:44 Dose: 10 ml Home Med (Patient's Own Medication) 1 tab PO DAILY [facility] Last Admin: 12/11/17 09:52 Dose: 1 tab Meropenem 1 gm/ Sodium (Chloride) 100 mls @ 100 mls/hr IVPB Q8H [facility]; Protocol Stop: 12/12/17 00:00 Last Admin: 12/11/17 11:43 Dose: 100 mls/hr Ferric Sodium Gluconate Complex 125 mg/ Sodium Chloride 110 mls @ 110 mls/hr IVPB DAILY [facility] Stop: 12/19/17 10:01 Last Admin: 12/11/17 10:43 Dose: 110 mls/hr Ertapenem (Invanz) 1 gm in 50 mls @ 100 mls/hr IVPB DAILY [facility]; Protocol Stop: 12/12/17 08:29 Lactobacillus Acidophilus (Bacid Acidophilus) 1 cap PO BID [facility] Last Admin: 12/11/17 18:18 Dose: 1 cap Methylprednisolone (Solu-Medrol) 40 mg IVP BID [facility] Last Admin: 12/11/17 18:19 Dose: 40 mg Montelukast Sodium (Singulair) 10 mg PO DAILY [facility] Last Admin: 12/11/17 09:52 Dose: 10 mg Morphine Sulfate (Morphine) 1 mg IVP Q4 PRN PRN Reason: Pain, severe (8-10) Last Admin: 12/11/17 14:54 Dose: 1 mg Olanzapine (Zyprexa) 5 mg PO DAILY [facility] Last Admin: 12/11/17 09:51 Dose: 5 mg Potassium Chloride (K-Dur 20 Meq Er Tab) 40 meq PO DAILY@0800 [facility] Last Admin: 12/11/17 08:19 Dose: 40 meq Multivit/Folic Acid/Iron () 1 tab PO DAILY [facility] Last Admin: 12/11/17 09:51 Dose: 1 tab Sennosides (Senokot Tab) 8.6 mg PO DAILY [facility] Last Admin: 12/11/17 09:51 Dose: 8.6 mg Zinc Acetate/Diphenhydramine (Benadryl 1% Zinc Acetate -0.1%) 0 cre TOP Q6H PRN PRN Reason: pruritis - Labs Labs: 12/11/17 06:47 12/11/17 06:47 PT 11.2 SECONDS (9.7-12.2) 12/02/17 16:42 INR 1.0 12/02/17 16:42 APTT 30 SECONDS (21-34) 12/02/17 16:42
[2017-12-12] MEDS: Albuterol-Ipratrop 3 mg / 0.5 (3 ml) UD INH SCH ×4 (00:05→11:11)
[2017-12-12] MEDS: DiphenhydrAMINE 50 mg/ml Inj IVP PRN ×3 (02:58→11:03)
[2017-12-12 07:13] LABS: BASO # 0.1 K/uL (0.0-0.2); BASO % 0.5 % (0.0-2.0); LYMPH # 1.7 K/uL (1.0-4.3); LYMPH % 8.6 % (20.0-40.0); MEAN CELL VOLUME 84.7 fL (81.0-99.0); MEAN CORPUSCULAR HEMOGLOBIN 25.9 pg (27.0-31.0); MEAN CORPUSCULAR HGB CONC 30.6 g/dL (33.0-37.0); MEAN PLATELET VOLUME 6.5 fL (7.2-11.7); MONO # 0.9 K/uL (0.0-0.8); MONO % 4.5 % (0.0-10.0); NEUT # 16.6 K/uL (1.8-7.0); NEUT % 86.4 % (50.0-75.0); NRBC % 6.1 % (0.0-2.0); PLATELET COUNT 363 K/uL (130-400); RBC 3.48 Mil/uL (3.80-5.20); WHITE BLOOD COUNT 19.3 K/uL (4.8-10.8)
[2017-12-12 07:55] LABS: ALB/GLOB RATIO 1.2 (1.0-2.1); ALBUMIN 3.2 g/dL (3.5-5.0); ALT/SGPT 46 U/L (9-52); AST/SGOT 24 U/L (14-36); BLOOD UREA NITROGEN 5 mg/dL (7-17); CALCIUM 8.4 mg/dl (8.6-10.4); GFR NON-AFRICAN AMERICAN > 60
[2017-12-12] MEDS ORDERED: Ertapenem 1gm in NS 50ml 1 GM/50 ML BAG IVPB SCH ×2 (08:00→10:00)
[2017-12-12 08:14] VITALS: BP 119/79; PULSE 86; TEMP 98.7; O2SAT 96
[2017-12-12 08:37] LABS: BANDS 6 % (0-2); LYMPHOCYTE 8 % (20-40); MONOCYTE 7 % (0-10); NEUTROPHIL 79 % (50-75); NUCLEATED RED BLOOD CELL 13 % (0-0); TOTAL CELLS COUNTED 100
[2017-12-12 08:38] LABS: ANISOCYTOSIS MARKED; HYPOCHROMIC MODERATE; PLATELET ESTIMATE NORMAL (NORMAL)
[2017-12-12 08:39] LABS: POIKILOCYTOSIS SLIGHT; POLYCHROMIC SLIGHT
[2017-12-12] MEDS: Potassium Chloride 20 mEq ER Tab PO SCH (08:57)
[2017-12-12] MEDS: Lactobacillus Acidophilus 500 MU Cap PO SCH (09:18)
[2017-12-12] MEDS: Prenatal Multivit/Folic Acid/Iron Tab PO SCH (09:18)
[2017-12-12] MEDS: MethylPREDNISolone 40 mg Vial IVP SCH (09:19)
[2017-12-12] MEDS: LEFLUNOMIDE 20 MG PO SCH (09:19)
[2017-12-12] MEDS: guaiFENesin DM 200 mg-20 mg/10 ml UD PO PRN (09:21)
[2017-12-12] MEDS: Ferric Sodium Gluconat Complex 125 MG in Sodium Chloride 0.9% 100 ML IVPB SCH (11:00)
--- NOTE | 2017-12-12 11:58 | CP.PCM.PN ---
Subjective - Date & Time of Evaluation Date of Evaluation: 12/12/17 Time of Evaluation: 11:55 - Subjective Subjective: Progress note. Attending: Dr. Moran Pt seen and examined at bedside. No acute distress. No fevers, chills, vomiting, diarrhea. Objective - Vital Signs/Intake and Output Vital Signs (last 24 hours): Temp Pulse Resp BP Pulse Ox 98.7 F 86 20 119/79 96 12/12/17 08:00 12/12/17 08:00 12/12/17 08:00 12/12/17 08:00 12/12/17 08:00 Intake and Output: 12/12/17 12/12/17 06:59 18:59 Intake Total 550 200 Balance 550 200 - Medications Medications: Current Medications Al Hydrox/Mg Hydrox/Simethicone (Maalox 30 Ml) 30 ml PO Q4 PRN PRN Reason: Indigestion / Heartburn Last Admin: 12/09/17 21:36 Dose: 30 ml Albuterol/Ipratropium (Duoneb 3 Mg/0.5 Mg (3 Ml) Ud) 3 ml INH RQ4 [facility] Last Admin: 12/12/17 11:11 Dose: 3 ml Apixaban (Eliquis) 5 mg PO BID [facility] Last Admin: 12/12/17 09:19 Dose: 5 mg Diphenhydramine HCl (Benadryl) 25 mg IVP Q4H PRN PRN Reason: Itching / Pruritus Last Admin: 12/12/17 11:03 Dose: 25 mg Epoetin Alonzo (Procrit) 10,000 unit SC MWF [facility] Last Admin: 12/11/17 09:52 Dose: 10,000 unit Famotidine (Pepcid) 20 mg PO DAILY [facility] Last Admin: 12/12/17 09:19 Dose: 20 mg Fluticasone/Vilanterol (Breo Ellipta 100-25 Mcg Inh) 1 puff INH RQ24 [facility] Folic Acid (Folic Acid) 1 mg PO DAILY [facility] Last Admin: 12/12/17 09:19 Dose: 1 mg Gabapentin (Neurontin) 300 mg PO TID [facility] Last Admin: 12/12/17 09:19 Dose: 300 mg Guaifenesin/Dextromethorphan (Robitussin Dm) 10 ml PO Q4H PRN PRN Reason: Cough and congestion Last Admin: 12/12/17 09:21 Dose: 10 ml Home Med (Patient's Own Medication) 1 tab PO DAILY [facility] Last Admin: 12/12/17 09:19 Dose: 1 tab Ferric Sodium Gluconate Complex 125 mg/ Sodium Chloride 110 mls @ 110 mls/hr IVPB DAILY [facility] Stop: 12/19/17 10:01 Last Admin: 12/12/17 11:00 Dose: 110 mls/hr Lactobacillus Acidophilus (Bacid Acidophilus) 1 cap PO BID [facility] Last Admin: 12/12/17 09:18 Dose: 1 cap Methylprednisolone (Solu-Medrol) 40 mg IVP BID [facility] Last Admin: 12/12/17 09:19 Dose: 40 mg Montelukast Sodium (Singulair) 10 mg PO DAILY [facility] Last Admin: 12/12/17 09:19 Dose: 10 mg Morphine Sulfate (Morphine) 1 mg IVP Q4 PRN PRN Reason: Pain, severe (8-10) Last Admin: 12/12/17 11:03 Dose: 1 mg Olanzapine (Zyprexa) 5 mg PO DAILY [facility] Last Admin: 12/12/17 09:19 Dose: 5 mg Potassium Chloride (K-Dur 20 Meq Er Tab) 40 meq PO DAILY@0800 [facility] Last Admin: 12/12/17 08:57 Dose: 40 meq Multivit/Folic Acid/Iron () 1 tab PO DAILY [facility] Last Admin: 12/12/17 09:18 Dose: 1 tab Sennosides (Senokot Tab) 8.6 mg PO DAILY [facility] Last Admin: 12/12/17 09:19 Dose: 8.6 mg Zinc Acetate/Diphenhydramine (Benadryl 1% Zinc Acetate -0.1%) 0 cre TOP Q6H PRN PRN Reason: pruritis - Labs Labs: 12/12/17 06:45 12/12/17 06:45 PT 11.2 SECONDS (9.7-12.2) 12/02/17 16:42 INR 1.0 12/02/17 16:42 APTT 30 SECONDS (21-34) 12/02/17 16:42 Assessment and Plan - Assessment and Plan (Free Text) Assessment: This is a 32 yo female with 1. Interstitial Lung Disease/SOB/Cough S/P Bronchoscopy on 12/07 CXR (12/07): Trace linear atelectasis inferior left lung zone laterally. No airspace disease identified bilaterally otherwise. No pleural effusion, pneumothorax or acute cardiovascular changes identified. Viral vs Autoimmune etiology Pulmonology Consulted. Dr. Veliz. mikayla appreciated. Rheumatology Consult. Dr. Nichols. recs appreciated. Chest CT 12/02 - Increasing nodular interstitial infiltrate involving bilateral mid to lower lung zones and to a lesser extent involvement of the upper lobes. Appearance remains concerning for opportunistic infection. No pleural effusion. No pneumothorax. No large central or segmental pulmonary embolus evident. Chest Xray 12/03 - Trace left pleural effusion costophrenic angle and/or chronic pleural thickening here, no change since 2016. No interval increasing pleural effusion or pneumothorax seen. Autoimmune Workup (Significant findings): IgG - 482.4 (Low) CCP 117 (HIGH) SAP BW ARCHITECT, DsDNA, Phosphatidlyserine, Anti-Cardiolipin, Antiphospholipid - NEGATIVE CD 3/4/8 - NEGATIVE SHANTELL 6 - NEGATIVE ASO - NEGATIVE Rh - Positive AFB Sputum Cultures-NEGATIVE x3, Mycoplasma-NEGATIVE, Qant Gold-NEGATIVE Sputum Culture/Bronchial Washings (12/07/17): POSITIVE FOR E.COLI CONTACT Isolation. PICC Line for outpatient infusions. Discharge planning . -ertapenem -mucinex dm 2. RA flare. -Rheumatology Consult. Dr. Nichols. recs appreciated. -Rituxan infusion as an outpatient. Patient will need to follow up with Dr. Nichols or her own rheumotologist for this medication. She will also need to check to see if her insurance covers it as it is an expensive medication. 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 No acute fracture, dislocation or subluxation throughout both hands. No destructive bony lesion identified. -Hydrocychloroquine 200mg BID -Leflunomide 20mg PO Daily -Sulfasalazine 1500mg BP BID -Morphine 2 Q4 PRN -tizanidine 4mg PO BID -Gabapentin 300mg PO TID UTI -12/03 urine culture positive for E Coli. -switching to ertapenem Asthma -ABG (12/04/17): 7,51/38/89/30.3 -Montelukast 10mg PO Daily -DuoNebs RQ6H PRN -Solumedrol 20mg IV Q12H -Breo Ellipta 1 puff INJ Daily Anemia of chronic disease -most likely secondary to RA -normocytic anemia -pt has been getting procrit -continue to monitor Hx of Subclavian DVT -Eliquis 5 PO BID Pruritus/Rash -PRN Benadryl PO/TOP GI/DVT ppx -eliquis 5 mg po BID pepcid daily Dispo: Will DC on ertapenem. Patient will need daily infusions of ertapenem for a minimum of 2 weeks as an outpatient. Upon completion she must follow up Dr. Pinzon and/or her own spray operator. She will also need to follow up with her PMD, and her executive director of nursing. Patient to be discharged today if she tolerates ertapenem. She has been improved for home infusions per case management.
--- NOTE | 2017-12-12 19:44 | CP.PCM.PN ---
Subjective - Date & Time of Evaluation Date of Evaluation: 12/10/17 Time of Evaluation: 12:00 - Subjective Subjective: Feels tired. Objective - Vital Signs/Intake and Output Vital Signs (last 24 hours): Temp Pulse Resp BP Pulse Ox 98.7 F 86 20 119/79 96 12/12/17 08:00 12/12/17 08:00 12/12/17 08:00 12/12/17 08:00 12/12/17 08:00 Intake and Output: 12/12/17 12/13/17 18:59 06:59 Intake Total 200 Balance 200 - Labs Labs: 12/12/17 06:45 12/12/17 06:45 PT 11.2 SECONDS (9.7-12.2) 12/02/17 16:42 INR 1.0 12/02/17 16:42 APTT 30 SECONDS (21-34) 12/02/17 16:42 - Head Exam Head Exam: ATRAUMATIC - Eye Exam Eye Exam: Normal appearance - ENT Exam ENT Exam: Mucous Membranes Dry - Respiratory Exam Respiratory Exam: NORMAL BREATHING PATTERN - Cardiovascular Exam Cardiovascular Exam: +S1, +S2 - GI/Abdominal Exam GI & Abdominal Exam: Normal Bowel Sounds Assessment and Plan (1) Anemia Assessment & Plan: iron deficiency anemia and chronic disease, s/p Ferrlecit and on Procrit Status: Chronic (2) Leukocytosis Assessment & Plan: on antibiotics Status: Acute (3) DVT (deep venous thrombosis) Assessment & Plan: unprovoked on therapeutic anticoagulation. 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
--- NOTE | 2017-12-12 19:45 | CP.PCM.PN ---
Subjective - Date & Time of Evaluation Date of Evaluation: 12/11/17 Time of Evaluation: 12:00 - Subjective Subjective: Feeling better. Objective - Vital Signs/Intake and Output Vital Signs (last 24 hours): Temp Pulse Resp BP Pulse Ox 98.7 F 86 20 119/79 96 12/12/17 08:00 12/12/17 08:00 12/12/17 08:00 12/12/17 08:00 12/12/17 08:00 Intake and Output: 12/12/17 12/13/17 18:59 06:59 Intake Total 200 Balance 200 - Labs Labs: 12/12/17 06:45 12/12/17 06:45 PT 11.2 SECONDS (9.7-12.2) 12/02/17 16:42 INR 1.0 12/02/17 16:42 APTT 30 SECONDS (21-34) 12/02/17 16:42 - Head Exam Head Exam: ATRAUMATIC - Eye Exam Eye Exam: Normal appearance - ENT Exam ENT Exam: Mucous Membranes Dry - Respiratory Exam Respiratory Exam: NORMAL BREATHING PATTERN - Cardiovascular Exam Cardiovascular Exam: +S1, +S2 - GI/Abdominal Exam GI & Abdominal Exam: Normal Bowel Sounds Assessment and Plan (1) Anemia Assessment & Plan: iron deficiency anemia and chronic disease, s/p Ferrlecit and on Procrit Status: Chronic (2) Leukocytosis Assessment & Plan: on antibiotics Status: Acute (3) DVT (deep venous thrombosis) Assessment & Plan: unprovoked on therapeutic anticoagulation. 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
--- NOTE | 2017-12-12 19:47 | CP.PCM.PN ---
Subjective - Date & Time of Evaluation Date of Evaluation: 12/12/17 Time of Evaluation: 11:00 - Subjective Subjective: Feeling better. Objective - Vital Signs/Intake and Output Vital Signs (last 24 hours): Temp Pulse Resp BP Pulse Ox 98.7 F 86 20 119/79 96 12/12/17 08:00 12/12/17 08:00 12/12/17 08:00 12/12/17 08:00 12/12/17 08:00 Intake and Output: 12/12/17 12/13/17 18:59 06:59 Intake Total 200 Balance 200 - Labs Labs: 12/12/17 06:45 12/12/17 06:45 PT 11.2 SECONDS (9.7-12.2) 12/02/17 16:42 INR 1.0 12/02/17 16:42 APTT 30 SECONDS (21-34) 12/02/17 16:42 - Head Exam Head Exam: ATRAUMATIC - Eye Exam Eye Exam: Normal appearance - ENT Exam ENT Exam: Mucous Membranes Dry - Respiratory Exam Respiratory Exam: NORMAL BREATHING PATTERN - Cardiovascular Exam Cardiovascular Exam: +S1, +S2 - GI/Abdominal Exam GI & Abdominal Exam: Normal Bowel Sounds Assessment and Plan (1) Anemia Assessment & Plan: iron deficiency anemia and chronic disease, s/p Ferrlecit and on Procrit Status: Chronic (2) Leukocytosis Assessment & Plan: on antibiotics Status: Acute (3) DVT (deep venous thrombosis) Assessment & Plan: unprovoked on therapeutic anticoagulation. 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
== END 2017-12-12 14:45 | disposition home or self-care (01) | DRG 76 ==
LOC: C.ER 16:04 → C.9E 19:35 → C.3T 20:11 → OBSVTOIN 12-05 17:08 → C.3T 12-05 21:05
PROVIDERS: ADMIT Internal Medicine Nephrology; ATTEND Internal Medicine Nephrology
PROC: 0BD38ZX Extraction of Right Main Bronchus, Via Natural or Artificial Opening Endoscopic, Diagnostic (ICD-10-PCS; 2017-12-07)
PROC: 0B9F8ZX Drainage of Right Lower Lung Lobe, Via Natural or Artificial Opening Endoscopic, Diagnostic (ICD-10-PCS; principal; 2017-12-07 08:00)
PROC: 02HV33Z Insertion of Infusion Device into Superior Vena Cava, Percutaneous Approach (ICD-10-PCS; 2017-12-10)
DX: J84.9 Interstitial pulmonary disease, unspecified (principal); I82.B29 Chronic embolism and thrombosis of unspecified subclavian vein; J45.901 Unspecified asthma with (acute) exacerbation; N39.0 Urinary tract infection, site not specified; M06.80 Other specified rheumatoid arthritis, unspecified site; B96.20 Unspecified Escherichia coli [E. coli] as the cause of diseases classified elsewhere; D50.9 Iron deficiency anemia, unspecified; M79.7 Fibromyalgia; L29.9 Pruritus, unspecified; J34.2 Deviated nasal septum

== ENCOUNTER 2018-04-24 15:06 | Outpatient (CLI) | payer OTHER | END 2018-04-24 15:07 | disposition home or self-care (01) | LOC: C.MRIC 15:07 | DX: M54.5 Low back pain (principal) ==